=== PATIENT | male | born 1945 | race Caucasian/White ===

== ENCOUNTER 2016-08-19 18:02 | Inpatient (IN) | payer MEDICARE, MEDICAID ==
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
[2016-08-19 18:27] VITALS: BP 111/111
[2016-08-19] MEDS ORDERED: Haloperidol Lactate 5 mg/mL 1mL Vial IM STA (19:07)
[2016-08-19] MEDS ORDERED: Haloperidol Lactate 5 mg/mL 1mL Vial ONE (20:36)
[2016-08-19 21:39] LABS: URINE BILIRUBIN NEGATIVE (NEGATIVE); URINE BLOOD TRACE (NEGATIVE); URINE COLOR STRAW; URINE GLUCOSE (UA) NEGATIVE (NEGATIVE); URINE KETONE NEGATIVE (NEGATIVE); URINE PH 5.5; URINE PROTEIN 100 mg/dL (NEGATIVE); URINE UROBILINOGEN 0.2 E.U./dL (0.2 - 1.0)
--- NOTE | 2016-08-19 21:39 | Admit Criteria Form ---
Admit Criteria Forms - Admit Criteria Diagnosis: PSYCHIATRIC DISORDERS Clinical Indications for Inpatient Care (Place 'X' for any and all applicable criteria): Ongoing inpatient care may be needed for ANY ONE of the following(1)(2)(3)(4)(6) (7)(8): [ ]I. Danger to self or others not manageable at lower level of care. [ ]II. Grave disability (eg, inability to perform self care necessary at lower level of care) [X]III. Agitation or inappropriate behavior interfering with care for primary condition (eg, attempting to discontinue lines or drains prematurely, unable to cooperate with respiratory care) [ ]IV. Severe disability or disorder indicated by ALL of the following: [ ]a) Severe behavioral health disorder-related symptoms or condition indicated by ANY ONE of the following: [ ]i) Severe problem with cognition, memory, judgment, or impulse control [ ]ii) Severe clinical manifestations (eg, hallucinations, delusions, other acute psychotic symptoms, lisha, extreme agitation or anxiety) [ ]b) Patient management at lower level of care is not feasible until acute intervention or modification is initiated. Extended stay beyond goal length of stay for the primary condition may be indicated when ANY ONE of the following is present: (1)(2)(3)(4): [ ]a) Patient is a danger to self or others and not manageable at lower level of care. [ ]b) Behavior crisis management, including physical or chemical restraints, is required and is not available at a lower level of care. [ ]c) Behavioral symptoms (e.g., agitation, somnolence, inappropriate behavior) are present, and are not manageable at a lower level of care. [ ]d) Patient cannot understand follow-up treatment and crisis plan. [ ]e) Provider and supports are not sufficiently available at lower level of care. [ ]f) Patient cannot participate (e.g., verify absence of plan for harm) and is in needed of monitoring. The original [facility] [employer] content created by [facility] has been revised. The portions of the content which have been revised are identified through the use of italic text or in bold, and [facility] has neither reviewed nor approved the modified material. All other unmodified content is copyright [facility] [employer]. Please see references footnoted in the original [facility] edition 2016 Admit Criteria Met?: Yes
[2016-08-19 21:40] LABS: URINE WBC 25-50 /hpf (0-5)
[2016-08-19 21:41] LABS: URINE BACTERIA NONE SEEN /hpf (NONE SEEN); URINE EPITHELIAL CELLS NONE SEEN /lpf (FEW)
[2016-08-19 22:01] LABS: % BASOPHILS 2.8 % (0.0-2.0); % EOSINOPHILS 3.1 % (0.0-5.0); % MONOCYTES 10.1 % (2.0-10.0); HEMATOCRIT 34.4 % (39.0-49.0); HEMOGLOBIN 11.5 gm/dL (12.6-17.4); MEAN CELL VOLUME 91.3 fl (80-99); MEAN CORPUSCULAR HEMOGLOBIN 30.6 pg (27.0-31.0); MEAN CORPUSCULAR HGB CONC 33.5 pg (28.0-36.0); NEUTROPHILE ABSOLUTE 3.9 Th/cmm (1.8-8.0); PLATELET COUNT 268 Th/cmm (150-400); RED BLOOD COUNT 3.77 Mil/cmm (3.80-5.80); RED CELL DISTRIBUTION WIDTH 14.1 % (11.5-20.0); WHITE BLOOD COUNT 7.9 Th/cmm (4.8-10.8)
[2016-08-19 22:12] LABS: ANION GAP 9.3 (7.0-16.0); BUN - UREA NITROGEN 43 mg/dL (7-25); BUN/CREATININE RATIO 17.9; CALCIUM SERUM 9.4 mg/dL (8.6-10.3); CARBON DIOXIDE 18.8 mEq/L (21.0-31.0); CHLORIDE 114 mEq/L (98-107); CHOLESTEROL 163 mg/dL (<200); CREATININE - SERUM 2.4 mg/dL (0.7-1.3); GLUCOSE 78 mg/dL (70-105); POTASSIUM SERUM 5.1 mEq/L (3.5-5.1); SODIUM SERUM 137 mEq/L (136-145); TRIGLYCERIDES 100 mg/dL (<150)
[2016-08-19] MEDS ORDERED: Maalox 30 mL Cup PO PRN (23:38)
[2016-08-19] MEDS ORDERED: Magnesium Hydroxide (MOM) 30 mL UDC PO PRN (23:38)
[2016-08-20] MEDS: OLANZapine 5 mg Oral Disintegrating Tab PO SCH ×2 (08:30→16:11)
[2016-08-20] MEDS: Calcium Carb/Vit D 500 mg/200 U Tab PO SCH (08:31)
[2016-08-20] MEDS: Ferrous Sulfate 325 MG TAB PO SCH (08:31)
[2016-08-20] MEDS: Multivitamin Tab PO SCH (08:31)
--- NOTE | 2016-08-20 10:06 | General Progress Note ---
Subjective - Review of Systems Service Date: 08/20/16 Subjective: agitated Objective - Results Result Diagrams: 08/19/16 21:40 08/19/16 21:40 Recent Labs: Laboratory Last Values WBC 7.9 Th/cmm (4.8-10.8) 08/19/16 21:40 RBC 3.77 Mil/cmm (3.80-5.80) L 08/19/16 21:40 Hgb 11.5 gm/dL (12.6-17.4) L 08/19/16 21:40 Hct 34.4 % (39.0-49.0) L 08/19/16 21:40 MCV 91.3 fl (80-99) 08/19/16 21:40 MCH 30.6 pg (27.0-31.0) 08/19/16 21:40 MCHC Differential 33.5 pg (28.0-36.0) 08/19/16 21:40 RDW 14.1 % (11.5-20.0) 08/19/16 21:40 Plt Count 268 Th/cmm (150-400) 08/19/16 21:40 MPV 8.0 fl 08/19/16 21:40 Neutrophils % 49.0 % (40.0-80.0) 08/19/16 21:40 Lymphocytes % 35.0 % (20.0-50.0) 08/19/16 21:40 Monocytes % 10.1 % (2.0-10.0) H 08/19/16 21:40 Eosinophils % 3.1 % (0.0-5.0) 08/19/16 21:40 Basophils % 2.8 % (0.0-2.0) H 08/19/16 21:40 Sodium 137 mEq/L (136-145) 08/19/16 21:40 Potassium 5.1 mEq/L (3.5-5.1) 08/19/16 21:40 Chloride 114 mEq/L (98-107) H 08/19/16 21:40 Carbon Dioxide 18.8 mEq/L (21.0-31.0) L 08/19/16 21:40 Anion Gap 9.3 (7.0-16.0) 08/19/16 21:40 BUN 43 mg/dL (7-25) H 08/19/16 21:40 Creatinine 2.4 mg/dL (0.7-1.3) H 08/19/16 21:40 Est GFR ( Amer) TNP 08/19/16 21:40 Est GFR (Non-Af Amer) TNP 08/19/16 21:40 BUN/Creatinine Ratio 17.9 08/19/16 21:40 Glucose 78 mg/dL (70-105) 08/19/16 21:40 Calcium 9.4 mg/dL (8.6-10.3) 08/19/16 21:40 Triglycerides 100 mg/dL (<150) 08/19/16 21:40 Cholesterol 163 mg/dL (<200) 08/19/16 21:40 LDL Cholesterol Direct 124 mg/dL (75-193) 08/19/16 21:40 HDL Cholesterol 36 mg/dL (23-92) 08/19/16 21:40 TSH 2.31 uIU/ml (0.34-5.60) 08/19/16 21:40 Urine Source CLEAN C 08/19/16 20:57 Urine Color STRAW 08/19/16 20:57 Urine Clarity HAZY (CLEAR) 08/19/16 20:57 Urine pH 5.5 08/19/16 20:57 Ur Specific [place] 1.020 (1.005-1.030) 08/19/16 20:57 Urine Protein 100 mg/dL (NEGATIVE) H 08/19/16 20:57 Urine Glucose (UA) NEGATIVE mg/dL (NEGATIVE) 08/19/16 20:57 Urine Ketones NEGATIVE mg/dL (NEGATIVE) 08/19/16 20:57 Urine Blood TRACE (NEGATIVE) 08/19/16 20:57 Urine Nitrate NEGATIVE (NEGATIVE) 08/19/16 20:57 Urine Bilirubin NEGATIVE (NEGATIVE) 08/19/16 20:57 Urine Urobilinogen 0.2 E.U./dL (0.2 - 1.0) 08/19/16 20:57 Ur Leukocyte Esterase SMALL (NEGATIVE) H 08/19/16 20:57 Urine RBC 2-5 /hpf (0-5) H 08/19/16 20:57 Urine WBC 25-50 /hpf (0-5) H 08/19/16 20:57 Ur Epithelial Cells NONE SEEN /lpf (FEW) 08/19/16 20:57 Urine Bacteria NONE SEEN /hpf (NONE SEEN) 08/19/16 20:57 - Physical Exam Vitals and I&O: Vital Signs Temp 97 F 08/20/16 06:34 Pulse 86 08/20/16 08:31 Resp 18 08/20/16 06:34 BP 123/66 08/20/16 08:31 Pulse Ox 97 08/20/16 06:34 Intake & Output 08/19/16 08/20/16 08/20/16 18:59 06:59 18:59 Intake Total 120 Balance 120 Intake: Oral 120 Other: # Voids 3 Active Medications: Current Medications Acetaminophen (Tylenol) 650 mg PO Q4HR PRN PRN Reason: Pain Stop: 10/18/16 23:37 Al Hydrox/Mg Hydrox/Simethicone (Maalox) 30 ml PO Q4HR PRN PRN Reason: GI DISTRESS Stop: 10/18/16 23:37 Ascorbic Acid (Vitamin C) 500 mg PO DAILY [facility] Stop: 10/19/16 08:59 Last Admin: 08/20/16 08:31 Dose: 500 mg Bisacodyl (Dulcolax 10 Mg Supp) 10 mg RC Q48HR PRN PRN Reason: Constipation Stop: 10/19/16 00:21 Calcium/Vitamin D (Oscal W/Vitamin D) 1 tab PO DAILY [facility] Stop: 10/19/16 08:59 Last Admin: 08/20/16 08:31 Dose: 1 tab Docusate Sodium (Colace) 100 mg PO DAILY [facility] Stop: 10/19/16 08:59 Last Admin: 08/20/16 08:31 Dose: 100 mg Ferrous Sulfate (Iron) 325 mg PO DAILY [facility] Stop: 10/19/16 08:59 Last Admin: 08/20/16 08:31 Dose: 325 mg Gabapentin (Neurontin) 600 mg PO BID [facility] Stop: 10/19/16 08:59 Last Admin: 08/20/16 08:30 Dose: 600 mg Lorazepam (Ativan) 0.5 mg PO Q4HR PRN; Protocol PRN Reason: Anxiety Stop: 09/18/16 23:37 Losartan Potassium (Cozaar) 50 mg PO DAILY [facility] Stop: 10/19/16 08:59 Last Admin: 08/20/16 08:31 Dose: 50 mg Multivitamins/Vitamin C (Theragran) 1 tab PO DAILY [facility] Stop: 10/19/16 08:59 Last Admin: 08/20/16 08:31 Dose: 1 tab Olanzapine (Zyprexa Zydis) 5 mg PO BID [facility] PRN Reason: Protocol Stop: 10/19/16 08:59 Last Admin: 08/20/16 08:30 Dose: 5 mg Senna (Senna) 17.2 mg PO HS [facility] Stop: 10/19/16 20:59 Zolpidem Tartrate (Ambien) 5 mg PO HS PRN PRN Reason: Insomnia Stop: 10/18/16 23:37 General: Alert, No acute distress HEENT: Atraumatic Neck: Supple Cardiovascular: Regular rate, Normal S1 Lungs: Clear to auscultation Abdomen: Bowel sounds Neurological: Normal gait Psych/Mental Status: Other (agitated) Assessment/Plan - Assessment Assessment: severe agitation psychosis uti - Plan Plan: antibiotics
[2016-08-20 11:16] LABS: HEP B CORE IGM Negative (Negative); HEP C ANTIBODY >11.0 s/co ratio (0.0-0.9)
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
[2016-08-21] MEDS: Multivitamin Tab PO SCH (08:25)
[2016-08-21] MEDS: Calcium Carb/Vit D 500 mg/200 U Tab PO SCH (08:25)
[2016-08-21] MEDS: Ferrous Sulfate 325 MG TAB PO SCH (08:25)
[2016-08-21] MEDS: OLANZapine 5 mg Oral Disintegrating Tab PO SCH ×2 (08:26→16:04)
--- NOTE | 2016-08-21 09:18 | General Progress Note ---
Subjective - Review of Systems Subjective: agitated Objective - Results Result Diagrams: 08/19/16 21:40 08/19/16 21:40 Recent Labs: Laboratory Last Values WBC 7.9 Th/cmm (4.8-10.8) 08/19/16 21:40 RBC 3.77 Mil/cmm (3.80-5.80) L 08/19/16 21:40 Hgb 11.5 gm/dL (12.6-17.4) L 08/19/16 21:40 Hct 34.4 % (39.0-49.0) L 08/19/16 21:40 MCV 91.3 fl (80-99) 08/19/16 21:40 MCH 30.6 pg (27.0-31.0) 08/19/16 21:40 MCHC Differential 33.5 pg (28.0-36.0) 08/19/16 21:40 RDW 14.1 % (11.5-20.0) 08/19/16 21:40 Plt Count 268 Th/cmm (150-400) 08/19/16 21:40 MPV 8.0 fl 08/19/16 21:40 Neutrophils % 49.0 % (40.0-80.0) 08/19/16 21:40 Lymphocytes % 35.0 % (20.0-50.0) 08/19/16 21:40 Monocytes % 10.1 % (2.0-10.0) H 08/19/16 21:40 Eosinophils % 3.1 % (0.0-5.0) 08/19/16 21:40 Basophils % 2.8 % (0.0-2.0) H 08/19/16 21:40 Sodium 137 mEq/L (136-145) 08/19/16 21:40 Potassium 5.1 mEq/L (3.5-5.1) 08/19/16 21:40 Chloride 114 mEq/L (98-107) H 08/19/16 21:40 Carbon Dioxide 18.8 mEq/L (21.0-31.0) L 08/19/16 21:40 Anion Gap 9.3 (7.0-16.0) 08/19/16 21:40 BUN 43 mg/dL (7-25) H 08/19/16 21:40 Creatinine 2.4 mg/dL (0.7-1.3) H 08/19/16 21:40 Est GFR ( Amer) TNP 08/19/16 21:40 Est GFR (Non-Af Amer) TNP 08/19/16 21:40 BUN/Creatinine Ratio 17.9 08/19/16 21:40 Glucose 78 mg/dL (70-105) 08/19/16 21:40 Calcium 9.4 mg/dL (8.6-10.3) 08/19/16 21:40 Triglycerides 100 mg/dL (<150) 08/19/16 21:40 Cholesterol 163 mg/dL (<200) 08/19/16 21:40 LDL Cholesterol Direct 124 mg/dL (75-193) 08/19/16 21:40 HDL Cholesterol 36 mg/dL (23-92) 08/19/16 21:40 TSH 2.31 uIU/ml (0.34-5.60) 08/19/16 21:40 Urine Source CLEAN C 08/19/16 20:57 Urine Color STRAW 08/19/16 20:57 Urine Clarity HAZY (CLEAR) 08/19/16 20:57 Urine pH 5.5 08/19/16 20:57 Ur Specific [place] 1.020 (1.005-1.030) 08/19/16 20:57 Urine Protein 100 mg/dL (NEGATIVE) H 08/19/16 20:57 Urine Glucose (UA) NEGATIVE mg/dL (NEGATIVE) 08/19/16 20:57 Urine Ketones NEGATIVE mg/dL (NEGATIVE) 08/19/16 20:57 Urine Blood TRACE (NEGATIVE) 08/19/16 20:57 Urine Nitrate NEGATIVE (NEGATIVE) 08/19/16 20:57 Urine Bilirubin NEGATIVE (NEGATIVE) 08/19/16 20:57 Urine Urobilinogen 0.2 E.U./dL (0.2 - 1.0) 08/19/16 20:57 Ur Leukocyte Esterase SMALL (NEGATIVE) H 08/19/16 20:57 Urine RBC 2-5 /hpf (0-5) H 08/19/16 20:57 Urine WBC 25-50 /hpf (0-5) H 08/19/16 20:57 Ur Epithelial Cells NONE SEEN /lpf (FEW) 08/19/16 20:57 Urine Bacteria NONE SEEN /hpf (NONE SEEN) 08/19/16 20:57 Hepatitis A IgM Ab Negative (Negative) 08/19/16 21:40 Hep Bs Antigen Negative (Negative) 08/19/16 21:40 Hep B Core IgM Ab Negative (Negative) 08/19/16 21:40 Hepatitis C Antibody >11.0 s/co ratio (0.0-0.9) H 08/19/16 21:40 - Physical Exam Vitals and I&O: Vital Signs Temp 97.8 F 08/21/16 07:00 Pulse 78 08/21/16 08:27 Resp 19 08/21/16 07:00 BP 104/66 08/21/16 08:27 Pulse Ox 98 08/21/16 07:00 Intake & Output 08/20/16 08/21/16 08/21/16 18:59 06:59 18:59 Intake Total 700 Balance 700 Intake: Oral 700 Other: # Voids 3 # Bowel Movements 0 Active Medications: Current Medications Acetaminophen (Tylenol) 650 mg PO Q4HR PRN PRN Reason: Pain Stop: 10/18/16 23:37 Al Hydrox/Mg Hydrox/Simethicone (Maalox) 30 ml PO Q4HR PRN PRN Reason: GI DISTRESS Stop: 10/18/16 23:37 Ascorbic Acid (Vitamin C) 500 mg PO DAILY [facility] Stop: 10/19/16 08:59 Last Admin: 08/21/16 08:26 Dose: 500 mg Bisacodyl (Dulcolax 10 Mg Supp) 10 mg RC Q48HR PRN PRN Reason: Constipation Stop: 10/19/16 00:21 Calcium/Vitamin D (Oscal W/Vitamin D) 1 tab PO DAILY [facility] Stop: 10/19/16 08:59 Last Admin: 08/21/16 08:25 Dose: 1 tab Docusate Sodium (Colace) 100 mg PO DAILY [facility] Stop: 10/19/16 08:59 Last Admin: 08/21/16 08:26 Dose: 100 mg Ferrous Sulfate (Iron) 325 mg PO DAILY [facility] Stop: 10/19/16 08:59 Last Admin: 08/21/16 08:25 Dose: 325 mg Gabapentin (Neurontin) 600 mg PO BID [facility] Stop: 10/19/16 08:59 Last Admin: 08/21/16 08:25 Dose: 600 mg Lorazepam (Ativan) 0.5 mg PO Q4HR PRN; Protocol PRN Reason: Anxiety Stop: 09/18/16 23:37 Losartan Potassium (Cozaar) 50 mg PO DAILY [facility]LI Stop: 10/19/16 08:59 Last Admin: 08/21/16 08:27 Dose: Not Given Multivitamins/Vitamin C (Theragran) 1 tab PO DAILY [facility]LI Stop: 10/19/16 08:59 Last Admin: 08/21/16 08:25 Dose: 1 tab Olanzapine (Zyprexa Zydis) 5 mg PO BID [facility]LI PRN Reason: Protocol Stop: 10/19/16 08:59 Last Admin: 08/21/16 08:26 Dose: 5 mg Senna (Senna) 17.2 mg PO HS CHELI Stop: 10/19/16 20:59 Last Admin: 08/20/16 21:01 Dose: Not Given Zolpidem Tartrate (Ambien) 5 mg PO HS PRN PRN Reason: Insomnia Stop: 10/18/16 23:37 Assessment/Plan - Assessment Assessment: severe agitation psychosis uti - Plan Plan: antibiotics
--- NOTE | 2016-08-21 23:56 | Infectious Disease Prog Note ---
Infectious Disease Subjective - Review of Systems Service Date: 08/21/16 Subjective: No fever. Infectious Disease Objective - Results Result Diagrams: 08/19/16 21:40 08/19/16 21:40 Recent Labs: Laboratory Last Values WBC 7.9 Th/cmm (4.8-10.8) 08/19/16 21:40 RBC 3.77 Mil/cmm (3.80-5.80) L 08/19/16 21:40 Hgb 11.5 gm/dL (12.6-17.4) L 08/19/16 21:40 Hct 34.4 % (39.0-49.0) L 08/19/16 21:40 MCV 91.3 fl (80-99) 08/19/16 21:40 MCH 30.6 pg (27.0-31.0) 08/19/16 21:40 MCHC Differential 33.5 pg (28.0-36.0) 08/19/16 21:40 RDW 14.1 % (11.5-20.0) 08/19/16 21:40 Plt Count 268 Th/cmm (150-400) 08/19/16 21:40 MPV 8.0 fl 08/19/16 21:40 Neutrophils % 49.0 % (40.0-80.0) 08/19/16 21:40 Lymphocytes % 35.0 % (20.0-50.0) 08/19/16 21:40 Monocytes % 10.1 % (2.0-10.0) H 08/19/16 21:40 Eosinophils % 3.1 % (0.0-5.0) 08/19/16 21:40 Basophils % 2.8 % (0.0-2.0) H 08/19/16 21:40 Sodium 137 mEq/L (136-145) 08/19/16 21:40 Potassium 5.1 mEq/L (3.5-5.1) 08/19/16 21:40 Chloride 114 mEq/L (98-107) H 08/19/16 21:40 Carbon Dioxide 18.8 mEq/L (21.0-31.0) L 08/19/16 21:40 Anion Gap 9.3 (7.0-16.0) 08/19/16 21:40 BUN 43 mg/dL (7-25) H 08/19/16 21:40 Creatinine 2.4 mg/dL (0.7-1.3) H 08/19/16 21:40 Est GFR ( Amer) TNP 08/19/16 21:40 Est GFR (Non-Af Amer) TNP 08/19/16 21:40 BUN/Creatinine Ratio 17.9 08/19/16 21:40 Glucose 78 mg/dL (70-105) 08/19/16 21:40 Calcium 9.4 mg/dL (8.6-10.3) 08/19/16 21:40 Triglycerides 100 mg/dL (<150) 08/19/16 21:40 Cholesterol 163 mg/dL (<200) 08/19/16 21:40 LDL Cholesterol Direct 124 mg/dL (75-193) 08/19/16 21:40 HDL Cholesterol 36 mg/dL (23-92) 08/19/16 21:40 TSH 2.31 uIU/ml (0.34-5.60) 08/19/16 21:40 Urine Source CLEAN C 08/19/16 20:57 Urine Color STRAW 08/19/16 20:57 Urine Clarity HAZY (CLEAR) 08/19/16 20:57 Urine pH 5.5 08/19/16 20:57 Ur Specific [place] 1.020 (1.005-1.030) 08/19/16 20:57 Urine Protein 100 mg/dL (NEGATIVE) H 08/19/16 20:57 Urine Glucose (UA) NEGATIVE mg/dL (NEGATIVE) 08/19/16 20:57 Urine Ketones NEGATIVE mg/dL (NEGATIVE) 08/19/16 20:57 Urine Blood TRACE (NEGATIVE) 08/19/16 20:57 Urine Nitrate NEGATIVE (NEGATIVE) 08/19/16 20:57 Urine Bilirubin NEGATIVE (NEGATIVE) 08/19/16 20:57 Urine Urobilinogen 0.2 E.U./dL (0.2 - 1.0) 08/19/16 20:57 Ur Leukocyte Esterase SMALL (NEGATIVE) H 08/19/16 20:57 Urine RBC 2-5 /hpf (0-5) H 08/19/16 20:57 Urine WBC 25-50 /hpf (0-5) H 08/19/16 20:57 Ur Epithelial Cells NONE SEEN /lpf (FEW) 08/19/16 20:57 Urine Bacteria NONE SEEN /hpf (NONE SEEN) 08/19/16 20:57 RPR NONREACTIVE (NONREACTIVE) 08/19/16 21:40 Hepatitis A IgM Ab Negative (Negative) 08/19/16 21:40 Hep Bs Antigen Negative (Negative) 08/19/16 21:40 Hep B Core IgM Ab Negative (Negative) 08/19/16 21:40 Hepatitis C Antibody >11.0 s/co ratio (0.0-0.9) H 08/19/16 21:40 - Physical Exam Vitals and I&O: Vital Signs Temp 98.0 F 08/21/16 14:00 Pulse 91 08/21/16 14:00 Resp 20 08/21/16 14:00 BP 102/61 08/21/16 14:00 Pulse Ox 96 08/21/16 14:00 Intake & Output 08/21/16 08/21/16 08/22/16 06:59 18:59 06:59 Intake Total 960 Balance 960 Intake: Oral 960 Other: # Voids 3 # Bowel Movements 1 Active Medications: Current Medications Acetaminophen (Tylenol) 650 mg PO Q4HR PRN PRN Reason: Pain Stop: 10/18/16 23:37 Al Hydrox/Mg Hydrox/Simethicone (Maalox) 30 ml PO Q4HR PRN PRN Reason: GI DISTRESS Stop: 10/18/16 23:37 Ascorbic Acid (Vitamin C) 500 mg PO DAILY [facility] Stop: 10/19/16 08:59 Last Admin: 08/21/16 08:26 Dose: 500 mg Bisacodyl (Dulcolax 10 Mg Supp) 10 mg RC Q48HR PRN PRN Reason: Constipation Stop: 10/19/16 00:21 Calcium/Vitamin D (Oscal W/Vitamin D) 1 tab PO DAILY [facility] Stop: 10/19/16 08:59 Last Admin: 08/21/16 08:25 Dose: 1 tab Docusate Sodium (Colace) 100 mg PO DAILY [facility] Stop: 10/19/16 08:59 Last Admin: 08/21/16 08:26 Dose: 100 mg Ferrous Sulfate (Iron) 325 mg PO DAILY [facility] Stop: 10/19/16 08:59 Last Admin: 08/21/16 08:25 Dose: 325 mg Gabapentin (Neurontin) 600 mg PO BID [facility] Stop: 10/19/16 08:59 Last Admin: 08/21/16 16:04 Dose: 600 mg Lorazepam (Ativan) 0.5 mg PO Q4HR PRN; Protocol PRN Reason: Anxiety Stop: 09/18/16 23:37 Losartan Potassium (Cozaar) 50 mg PO DAILY [facility] Stop: 10/19/16 08:59 Last Admin: 08/21/16 08:27 Dose: Not Given Multivitamins/Vitamin C (Theragran) 1 tab PO DAILY [facility] Stop: 10/19/16 08:59 Last Admin: 08/21/16 08:25 Dose: 1 tab Olanzapine (Zyprexa Zydis) 5 mg PO BID [facility] PRN Reason: Protocol Stop: 10/19/16 08:59 Last Admin: 08/21/16 16:04 Dose: 5 mg Senna (Senna) 17.2 mg PO HS [facility] Stop: 10/19/16 20:59 Last Admin: 08/21/16 20:47 Dose: 17.2 mg Zolpidem Tartrate (Ambien) 5 mg PO HS PRN PRN Reason: Insomnia Stop: 10/18/16 23:37 General: no acute distress HEENT: atraumatic, normocephalic, PERRLA, EOMI Neck: supple Cardiovascular: S1S2, regular Lungs: clear to auscultation bilaterally, clear to percussion Abdomen: soft, no tender, no distended Extremities: no cyanosis, no clubbing, no edema Neurological: awake, alert, oriented Skin: intact Infectious Disease Assmt/Plan - Assessment Assessment: 1. UTI. 2. CKD3 3. COPD 4. HTN. 5. Schizophrenia. - Plan Plan: Jailer
--- NOTE | 2016-08-22 05:27 | Progress Notes ---
SUBJECTIVE: Chart reviewed and the patient interviewed. Also discussed the patient's condition with the staff and reviewed record and labs. The patient remains extremely agitated and angry and in irritable mood. The patient also is still isolating himself and his interaction with others is minimum. The patient also is still having severe mood swings and he is still uncooperative with the staff and a have short answers to questions with anger and irritability. The patient also seems to be suspicious and paranoid. Otherwise, the patient started to take Zyprexa was no side effect. ASSESSMENT: The patient is still agitated and can be dangerous to others. TREATMENT PLAN: We will continue monitoring his behavior and his condition closely. Also, continue adjusting psychotropic medications and monitoring dose of Zyprexa. Also, continue to work on his poor impulse control. Also discussed with [facility] [employer] supply issue and it seems that [facility] will not take the patient back. JOB# [id number]
[2016-08-22] MEDS: Calcium Carb/Vit D 500 mg/200 U Tab PO SCH (08:10)
[2016-08-22] MEDS: Ferrous Sulfate 325 MG TAB PO SCH (08:10)
[2016-08-22] MEDS: Multivitamin Tab PO SCH (08:10)
[2016-08-22] MEDS: OLANZapine 5 mg Oral Disintegrating Tab PO SCH ×2 (09:32→20:46)
--- NOTE | 2016-08-22 09:50 | General Progress Note ---
Subjective - Review of Systems Subjective: agitated Objective - Results Result Diagrams: 08/19/16 21:40 08/19/16 21:40 Recent Labs: Laboratory Last Values WBC 7.9 Th/cmm (4.8-10.8) 08/19/16 21:40 RBC 3.77 Mil/cmm (3.80-5.80) L 08/19/16 21:40 Hgb 11.5 gm/dL (12.6-17.4) L 08/19/16 21:40 Hct 34.4 % (39.0-49.0) L 08/19/16 21:40 MCV 91.3 fl (80-99) 08/19/16 21:40 MCH 30.6 pg (27.0-31.0) 08/19/16 21:40 MCHC Differential 33.5 pg (28.0-36.0) 08/19/16 21:40 RDW 14.1 % (11.5-20.0) 08/19/16 21:40 Plt Count 268 Th/cmm (150-400) 08/19/16 21:40 MPV 8.0 fl 08/19/16 21:40 Neutrophils % 49.0 % (40.0-80.0) 08/19/16 21:40 Lymphocytes % 35.0 % (20.0-50.0) 08/19/16 21:40 Monocytes % 10.1 % (2.0-10.0) H 08/19/16 21:40 Eosinophils % 3.1 % (0.0-5.0) 08/19/16 21:40 Basophils % 2.8 % (0.0-2.0) H 08/19/16 21:40 Sodium 137 mEq/L (136-145) 08/19/16 21:40 Potassium 5.1 mEq/L (3.5-5.1) 08/19/16 21:40 Chloride 114 mEq/L (98-107) H 08/19/16 21:40 Carbon Dioxide 18.8 mEq/L (21.0-31.0) L 08/19/16 21:40 Anion Gap 9.3 (7.0-16.0) 08/19/16 21:40 BUN 43 mg/dL (7-25) H 08/19/16 21:40 Creatinine 2.4 mg/dL (0.7-1.3) H 08/19/16 21:40 Est GFR ( Amer) TNP 08/19/16 21:40 Est GFR (Non-Af Amer) TNP 08/19/16 21:40 BUN/Creatinine Ratio 17.9 08/19/16 21:40 Glucose 78 mg/dL (70-105) 08/19/16 21:40 Calcium 9.4 mg/dL (8.6-10.3) 08/19/16 21:40 Triglycerides 100 mg/dL (<150) 08/19/16 21:40 Cholesterol 163 mg/dL (<200) 08/19/16 21:40 LDL Cholesterol Direct 124 mg/dL (75-193) 08/19/16 21:40 HDL Cholesterol 36 mg/dL (23-92) 08/19/16 21:40 TSH 2.31 uIU/ml (0.34-5.60) 08/19/16 21:40 Urine Source CLEAN C 08/19/16 20:57 Urine Color STRAW 08/19/16 20:57 Urine Clarity HAZY (CLEAR) 08/19/16 20:57 Urine pH 5.5 08/19/16 20:57 Ur Specific [place] 1.020 (1.005-1.030) 08/19/16 20:57 Urine Protein 100 mg/dL (NEGATIVE) H 08/19/16 20:57 Urine Glucose (UA) NEGATIVE mg/dL (NEGATIVE) 08/19/16 20:57 Urine Ketones NEGATIVE mg/dL (NEGATIVE) 08/19/16 20:57 Urine Blood TRACE (NEGATIVE) 08/19/16 20:57 Urine Nitrate NEGATIVE (NEGATIVE) 08/19/16 20:57 Urine Bilirubin NEGATIVE (NEGATIVE) 08/19/16 20:57 Urine Urobilinogen 0.2 E.U./dL (0.2 - 1.0) 08/19/16 20:57 Ur Leukocyte Esterase SMALL (NEGATIVE) H 08/19/16 20:57 Urine RBC 2-5 /hpf (0-5) H 08/19/16 20:57 Urine WBC 25-50 /hpf (0-5) H 08/19/16 20:57 Ur Epithelial Cells NONE SEEN /lpf (FEW) 08/19/16 20:57 Urine Bacteria NONE SEEN /hpf (NONE SEEN) 08/19/16 20:57 RPR NONREACTIVE (NONREACTIVE) 08/19/16 21:40 Hepatitis A IgM Ab Negative (Negative) 08/19/16 21:40 Hep Bs Antigen Negative (Negative) 08/19/16 21:40 Hep B Core IgM Ab Negative (Negative) 08/19/16 21:40 Hepatitis C Antibody >11.0 s/co ratio (0.0-0.9) H 08/19/16 21:40 - Physical Exam Vitals and I&O: Vital Signs Temp 98.0 F 08/21/16 14:00 Pulse 91 08/21/16 14:00 Resp 20 08/21/16 14:00 BP 102/61 08/21/16 14:00 Pulse Ox 96 08/21/16 14:00 Intake & Output 08/21/16 08/22/16 08/22/16 18:59 06:59 18:59 Intake Total 960 Balance 960 Intake: Oral 960 Other: # Voids 3 2 # Bowel Movements 1 Active Medications: Current Medications Acetaminophen (Tylenol) 650 mg PO Q4HR PRN PRN Reason: Pain Stop: 10/18/16 23:37 Al Hydrox/Mg Hydrox/Simethicone (Maalox) 30 ml PO Q4HR PRN PRN Reason: GI DISTRESS Stop: 10/18/16 23:37 Ascorbic Acid (Vitamin C) 500 mg PO DAILY [facility] Stop: 10/19/16 08:59 Last Admin: 08/22/16 08:09 Dose: 500 mg Bisacodyl (Dulcolax 10 Mg Supp) 10 mg RC Q48HR PRN PRN Reason: Constipation Stop: 10/19/16 00:21 Calcium/Vitamin D (Oscal W/Vitamin D) 1 tab PO DAILY [facility] Stop: 10/19/16 08:59 Last Admin: 08/22/16 08:10 Dose: 1 tab Ciprofloxacin (Cipro) 250 mg PO BID [facility] Stop: 10/21/16 08:59 Last Admin: 08/22/16 08:10 Dose: 250 mg Docusate Sodium (Colace) 100 mg PO DAILY [facility] Stop: 10/19/16 08:59 Last Admin: 08/22/16 08:10 Dose: 100 mg Ferrous Sulfate (Iron) 325 mg PO DAILY [facility] Stop: 10/19/16 08:59 Last Admin: 08/22/16 08:10 Dose: 325 mg Gabapentin (Neurontin) 600 mg PO BID [facility] Stop: 10/19/16 08:59 Last Admin: 08/22/16 08:10 Dose: 600 mg Lorazepam (Ativan) 0.5 mg PO Q4HR PRN; Protocol PRN Reason: Anxiety Stop: 09/18/16 23:37 Losartan Potassium (Cozaar) 50 mg PO DAILY [facility] Stop: 10/19/16 08:59 Last Admin: 08/22/16 08:12 Dose: Not Given Multivitamins/Vitamin C (Theragran) 1 tab PO DAILY [facility] Stop: 10/19/16 08:59 Last Admin: 08/22/16 08:10 Dose: 1 tab Olanzapine (Zyprexa Zydis) 5 mg PO DAILY [facility] PRN Reason: Protocol Stop: 10/21/16 08:59 Last Admin: 08/22/16 09:32 Dose: 5 mg Olanzapine (Zyprexa Zydis) 7.5 mg PO HS [facility] PRN Reason: Protocol Stop: 10/21/16 20:59 Senna (Senna) 17.2 mg PO HS [facility] Stop: 10/19/16 20:59 Last Admin: 08/21/16 20:47 Dose: 17.2 mg Zolpidem Tartrate (Ambien) 5 mg PO HS PRN PRN Reason: Insomnia Stop: 10/18/16 23:37 Assessment/Plan - Assessment Assessment: severe agitation psychosis uti - Plan Plan: antibiotics
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
[2016-08-23] MEDS: Calcium Carb/Vit D 500 mg/200 U Tab PO SCH (08:41)
[2016-08-23] MEDS: Multivitamin Tab PO SCH (08:44)
[2016-08-23] MEDS: OLANZapine 5 mg Oral Disintegrating Tab PO SCH ×2 (08:44→20:40)
[2016-08-23] MEDS: Ferrous Sulfate 325 MG TAB PO SCH (08:45)
--- NOTE | 2016-08-23 11:17 | General Progress Note ---
Subjective - Review of Systems Subjective: agitated Objective - Results Result Diagrams: 08/19/16 21:40 08/19/16 21:40 Recent Labs: Laboratory Last Values WBC 7.9 Th/cmm (4.8-10.8) 08/19/16 21:40 RBC 3.77 Mil/cmm (3.80-5.80) L 08/19/16 21:40 Hgb 11.5 gm/dL (12.6-17.4) L 08/19/16 21:40 Hct 34.4 % (39.0-49.0) L 08/19/16 21:40 MCV 91.3 fl (80-99) 08/19/16 21:40 MCH 30.6 pg (27.0-31.0) 08/19/16 21:40 MCHC Differential 33.5 pg (28.0-36.0) 08/19/16 21:40 RDW 14.1 % (11.5-20.0) 08/19/16 21:40 Plt Count 268 Th/cmm (150-400) 08/19/16 21:40 MPV 8.0 fl 08/19/16 21:40 Neutrophils % 49.0 % (40.0-80.0) 08/19/16 21:40 Lymphocytes % 35.0 % (20.0-50.0) 08/19/16 21:40 Monocytes % 10.1 % (2.0-10.0) H 08/19/16 21:40 Eosinophils % 3.1 % (0.0-5.0) 08/19/16 21:40 Basophils % 2.8 % (0.0-2.0) H 08/19/16 21:40 Sodium 137 mEq/L (136-145) 08/19/16 21:40 Potassium 5.1 mEq/L (3.5-5.1) 08/19/16 21:40 Chloride 114 mEq/L (98-107) H 08/19/16 21:40 Carbon Dioxide 18.8 mEq/L (21.0-31.0) L 08/19/16 21:40 Anion Gap 9.3 (7.0-16.0) 08/19/16 21:40 BUN 43 mg/dL (7-25) H 08/19/16 21:40 Creatinine 2.4 mg/dL (0.7-1.3) H 08/19/16 21:40 Est GFR ( Amer) TNP 08/19/16 21:40 Est GFR (Non-Af Amer) TNP 08/19/16 21:40 BUN/Creatinine Ratio 17.9 08/19/16 21:40 Glucose 78 mg/dL (70-105) 08/19/16 21:40 Calcium 9.4 mg/dL (8.6-10.3) 08/19/16 21:40 Triglycerides 100 mg/dL (<150) 08/19/16 21:40 Cholesterol 163 mg/dL (<200) 08/19/16 21:40 LDL Cholesterol Direct 124 mg/dL (75-193) 08/19/16 21:40 HDL Cholesterol 36 mg/dL (23-92) 08/19/16 21:40 TSH 2.31 uIU/ml (0.34-5.60) 08/19/16 21:40 Urine Source CLEAN C 08/19/16 20:57 Urine Color STRAW 08/19/16 20:57 Urine Clarity HAZY (CLEAR) 08/19/16 20:57 Urine pH 5.5 08/19/16 20:57 Ur Specific [place] 1.020 (1.005-1.030) 08/19/16 20:57 Urine Protein 100 mg/dL (NEGATIVE) H 08/19/16 20:57 Urine Glucose (UA) NEGATIVE mg/dL (NEGATIVE) 08/19/16 20:57 Urine Ketones NEGATIVE mg/dL (NEGATIVE) 08/19/16 20:57 Urine Blood TRACE (NEGATIVE) 08/19/16 20:57 Urine Nitrate NEGATIVE (NEGATIVE) 08/19/16 20:57 Urine Bilirubin NEGATIVE (NEGATIVE) 08/19/16 20:57 Urine Urobilinogen 0.2 E.U./dL (0.2 - 1.0) 08/19/16 20:57 Ur Leukocyte Esterase SMALL (NEGATIVE) H 08/19/16 20:57 Urine RBC 2-5 /hpf (0-5) H 08/19/16 20:57 Urine WBC 25-50 /hpf (0-5) H 08/19/16 20:57 Ur Epithelial Cells NONE SEEN /lpf (FEW) 08/19/16 20:57 Urine Bacteria NONE SEEN /hpf (NONE SEEN) 08/19/16 20:57 RPR NONREACTIVE (NONREACTIVE) 08/19/16 21:40 Hepatitis A IgM Ab Negative (Negative) 08/19/16 21:40 Hep Bs Antigen Negative (Negative) 08/19/16 21:40 Hep B Core IgM Ab Negative (Negative) 08/19/16 21:40 Hepatitis C Antibody >11.0 s/co ratio (0.0-0.9) H 08/19/16 21:40 - Physical Exam Vitals and I&O: Vital Signs Temp 98.2 F 08/22/16 19:46 Pulse 72 08/23/16 08:45 Resp 19 08/22/16 19:46 BP 110/67 08/23/16 08:45 Pulse Ox 97 08/22/16 19:46 Intake & Output 08/22/16 08/23/16 08/23/16 18:59 06:59 18:59 Intake Total 1000 240 Balance 1000 240 Intake: Oral 1000 240 Other: # Voids 4 1 2 # Bowel Movements 1 Active Medications: Current Medications Acetaminophen (Tylenol) 650 mg PO Q4HR PRN PRN Reason: Pain Stop: 10/18/16 23:37 Al Hydrox/Mg Hydrox/Simethicone (Maalox) 30 ml PO Q4HR PRN PRN Reason: GI DISTRESS Stop: 10/18/16 23:37 Ascorbic Acid (Vitamin C) 500 mg PO DAILY [facility] Stop: 10/19/16 08:59 Last Admin: 08/23/16 08:43 Dose: 500 mg Bisacodyl (Dulcolax 10 Mg Supp) 10 mg RC Q48HR PRN PRN Reason: Constipation Stop: 10/19/16 00:21 Calcium/Vitamin D (Oscal W/Vitamin D) 1 tab PO DAILY [facility] Stop: 10/19/16 08:59 Last Admin: 08/23/16 08:41 Dose: 1 tab Ciprofloxacin (Cipro) 250 mg PO BID [facility] Stop: 10/21/16 08:59 Last Admin: 08/23/16 08:44 Dose: 250 mg Docusate Sodium (Colace) 100 mg PO DAILY [facility] Stop: 10/19/16 08:59 Last Admin: 08/23/16 08:43 Dose: 100 mg Ferrous Sulfate (Iron) 325 mg PO DAILY [facility] Stop: 10/19/16 08:59 Last Admin: 08/23/16 08:45 Dose: 325 mg Gabapentin (Neurontin) 600 mg PO BID [facility] Stop: 10/19/16 08:59 Last Admin: 08/23/16 08:41 Dose: 600 mg Lorazepam (Ativan) 0.5 mg PO Q4HR PRN; Protocol PRN Reason: Anxiety Stop: 09/18/16 23:37 Losartan Potassium (Cozaar) 50 mg PO DAILY [facility] Stop: 10/19/16 08:59 Last Admin: 08/23/16 08:45 Dose: 50 mg Multivitamins/Vitamin C (Theragran) 1 tab PO DAILY [facility] Stop: 10/19/16 08:59 Last Admin: 08/23/16 08:44 Dose: 1 tab Olanzapine (Zyprexa Zydis) 5 mg PO DAILY [facility] PRN Reason: Protocol Stop: 10/21/16 08:59 Last Admin: 08/23/16 08:44 Dose: 5 mg Olanzapine (Zyprexa Zydis) 7.5 mg PO HS [facility] PRN Reason: Protocol Stop: 10/21/16 20:59 Last Admin: 08/22/16 20:46 Dose: 7.5 mg Senna (Senna) 17.2 mg PO HS [facility] Stop: 10/19/16 20:59 Last Admin: 08/22/16 20:46 Dose: 17.2 mg Zolpidem Tartrate (Ambien) 5 mg PO HS PRN PRN Reason: Insomnia Stop: 10/18/16 23:37 Assessment/Plan - Assessment Assessment: severe agitation psychosis uti - Plan Plan: antibiotics
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
[2016-08-24] MEDS: OLANZapine 5 mg Oral Disintegrating Tab PO SCH ×2 (08:24→20:44)
[2016-08-24] MEDS: Multivitamin Tab PO SCH (08:25)
[2016-08-24] MEDS: Ferrous Sulfate 325 MG TAB PO SCH (08:27)
[2016-08-24] MEDS: Calcium Carb/Vit D 500 mg/200 U Tab PO SCH (08:27)
--- NOTE | 2016-08-24 08:52 | General Progress Note ---
Subjective - Review of Systems Subjective: agitated Objective - Results Result Diagrams: 08/19/16 21:40 08/19/16 21:40 Recent Labs: Laboratory Last Values WBC 7.9 Th/cmm (4.8-10.8) 08/19/16 21:40 RBC 3.77 Mil/cmm (3.80-5.80) L 08/19/16 21:40 Hgb 11.5 gm/dL (12.6-17.4) L 08/19/16 21:40 Hct 34.4 % (39.0-49.0) L 08/19/16 21:40 MCV 91.3 fl (80-99) 08/19/16 21:40 MCH 30.6 pg (27.0-31.0) 08/19/16 21:40 MCHC Differential 33.5 pg (28.0-36.0) 08/19/16 21:40 RDW 14.1 % (11.5-20.0) 08/19/16 21:40 Plt Count 268 Th/cmm (150-400) 08/19/16 21:40 MPV 8.0 fl 08/19/16 21:40 Neutrophils % 49.0 % (40.0-80.0) 08/19/16 21:40 Lymphocytes % 35.0 % (20.0-50.0) 08/19/16 21:40 Monocytes % 10.1 % (2.0-10.0) H 08/19/16 21:40 Eosinophils % 3.1 % (0.0-5.0) 08/19/16 21:40 Basophils % 2.8 % (0.0-2.0) H 08/19/16 21:40 Sodium 137 mEq/L (136-145) 08/19/16 21:40 Potassium 5.1 mEq/L (3.5-5.1) 08/19/16 21:40 Chloride 114 mEq/L (98-107) H 08/19/16 21:40 Carbon Dioxide 18.8 mEq/L (21.0-31.0) L 08/19/16 21:40 Anion Gap 9.3 (7.0-16.0) 08/19/16 21:40 BUN 43 mg/dL (7-25) H 08/19/16 21:40 Creatinine 2.4 mg/dL (0.7-1.3) H 08/19/16 21:40 Est GFR ( Amer) TNP 08/19/16 21:40 Est GFR (Non-Af Amer) TNP 08/19/16 21:40 BUN/Creatinine Ratio 17.9 08/19/16 21:40 Glucose 78 mg/dL (70-105) 08/19/16 21:40 Calcium 9.4 mg/dL (8.6-10.3) 08/19/16 21:40 Triglycerides 100 mg/dL (<150) 08/19/16 21:40 Cholesterol 163 mg/dL (<200) 08/19/16 21:40 LDL Cholesterol Direct 124 mg/dL (75-193) 08/19/16 21:40 HDL Cholesterol 36 mg/dL (23-92) 08/19/16 21:40 TSH 2.31 uIU/ml (0.34-5.60) 08/19/16 21:40 Urine Source CLEAN C 08/19/16 20:57 Urine Color STRAW 08/19/16 20:57 Urine Clarity HAZY (CLEAR) 08/19/16 20:57 Urine pH 5.5 08/19/16 20:57 Ur Specific [place] 1.020 (1.005-1.030) 08/19/16 20:57 Urine Protein 100 mg/dL (NEGATIVE) H 08/19/16 20:57 Urine Glucose (UA) NEGATIVE mg/dL (NEGATIVE) 08/19/16 20:57 Urine Ketones NEGATIVE mg/dL (NEGATIVE) 08/19/16 20:57 Urine Blood TRACE (NEGATIVE) 08/19/16 20:57 Urine Nitrate NEGATIVE (NEGATIVE) 08/19/16 20:57 Urine Bilirubin NEGATIVE (NEGATIVE) 08/19/16 20:57 Urine Urobilinogen 0.2 E.U./dL (0.2 - 1.0) 08/19/16 20:57 Ur Leukocyte Esterase SMALL (NEGATIVE) H 08/19/16 20:57 Urine RBC 2-5 /hpf (0-5) H 08/19/16 20:57 Urine WBC 25-50 /hpf (0-5) H 08/19/16 20:57 Ur Epithelial Cells NONE SEEN /lpf (FEW) 08/19/16 20:57 Urine Bacteria NONE SEEN /hpf (NONE SEEN) 08/19/16 20:57 RPR NONREACTIVE (NONREACTIVE) 08/19/16 21:40 Hepatitis A IgM Ab Negative (Negative) 08/19/16 21:40 Hep Bs Antigen Negative (Negative) 08/19/16 21:40 Hep B Core IgM Ab Negative (Negative) 08/19/16 21:40 Hepatitis C Antibody >11.0 s/co ratio (0.0-0.9) H 08/19/16 21:40 - Physical Exam Vitals and I&O: Vital Signs Temp 98 F 08/23/16 21:52 Pulse 60 08/23/16 21:52 Resp 21 08/23/16 21:52 BP 113/62 08/23/16 21:52 Pulse Ox 99 08/23/16 21:52 Intake & Output 08/23/16 08/24/16 08/24/16 18:59 06:59 18:59 Intake Total 800 120 Balance 800 120 Intake: Oral 800 120 Other: # Voids 3 3 # Bowel Movements 1 Active Medications: Current Medications Acetaminophen (Tylenol) 650 mg PO Q4HR PRN PRN Reason: Pain Stop: 10/18/16 23:37 Al Hydrox/Mg Hydrox/Simethicone (Maalox) 30 ml PO Q4HR PRN PRN Reason: GI DISTRESS Stop: 10/18/16 23:37 Ascorbic Acid (Vitamin C) 500 mg PO DAILY [facility] Stop: 10/19/16 08:59 Last Admin: 08/24/16 08:26 Dose: 500 mg Bisacodyl (Dulcolax 10 Mg Supp) 10 mg RC Q48HR PRN PRN Reason: Constipation Stop: 10/19/16 00:21 Calcium/Vitamin D (Oscal W/Vitamin D) 1 tab PO DAILY [facility] Stop: 10/19/16 08:59 Last Admin: 08/24/16 08:27 Dose: 1 tab Ciprofloxacin (Cipro) 250 mg PO BID [facility] Stop: 10/21/16 08:59 Last Admin: 08/24/16 08:26 Dose: 250 mg Docusate Sodium (Colace) 100 mg PO DAILY [facility] Stop: 10/19/16 08:59 Last Admin: 08/24/16 08:26 Dose: 100 mg Ferrous Sulfate (Iron) 325 mg PO DAILY [facility] Stop: 10/19/16 08:59 Last Admin: 02/12/17 08:27 Dose: 325 mg Gabapentin (Neurontin) 600 mg PO BID [facility] Stop: 10/19/16 08:59 Last Admin: 08/24/16 08:24 Dose: 600 mg Lorazepam (Ativan) 0.5 mg PO Q4HR PRN; Protocol PRN Reason: Anxiety Stop: 09/18/16 23:37 Losartan Potassium (Cozaar) 50 mg PO DAILY [facility] Stop: 10/19/16 08:59 Last Admin: 08/23/16 08:45 Dose: 50 mg Multivitamins/Vitamin C (Theragran) 1 tab PO DAILY [facility] Stop: 10/19/16 08:59 Last Admin: 08/24/16 08:25 Dose: 1 tab Olanzapine (Zyprexa Zydis) 5 mg PO DAILY [facility] PRN Reason: Protocol Stop: 10/21/16 08:59 Last Admin: 08/24/16 08:24 Dose: 5 mg Olanzapine (Zyprexa Zydis) 7.5 mg PO HS [facility] PRN Reason: Protocol Stop: 10/21/16 20:59 Last Admin: 08/23/16 20:40 Dose: 7.5 mg Senna (Senna) 17.2 mg PO HS [facility] Stop: 10/19/16 20:59 Last Admin: 08/23/16 20:39 Dose: 17.2 mg Zolpidem Tartrate (Ambien) 5 mg PO HS PRN PRN Reason: Insomnia Stop: 10/18/16 23:37 Assessment/Plan - Assessment Assessment: severe agitation psychosis uti - Plan Plan: antibiotics
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
--- NOTE | 2016-08-25 09:21 | General Progress Note ---
Subjective - Review of Systems Subjective: agitated Objective - Results Result Diagrams: 08/19/16 21:40 08/19/16 21:40 Recent Labs: Laboratory Last Values WBC 7.9 Th/cmm (4.8-10.8) 08/19/16 21:40 RBC 3.77 Mil/cmm (3.80-5.80) L 08/19/16 21:40 Hgb 11.5 gm/dL (12.6-17.4) L 08/19/16 21:40 Hct 34.4 % (39.0-49.0) L 08/19/16 21:40 MCV 91.3 fl (80-99) 08/19/16 21:40 MCH 30.6 pg (27.0-31.0) 08/19/16 21:40 MCHC Differential 33.5 pg (28.0-36.0) 08/19/16 21:40 RDW 14.1 % (11.5-20.0) 08/19/16 21:40 Plt Count 268 Th/cmm (150-400) 08/19/16 21:40 MPV 8.0 fl 08/19/16 21:40 Neutrophils % 49.0 % (40.0-80.0) 08/19/16 21:40 Lymphocytes % 35.0 % (20.0-50.0) 08/19/16 21:40 Monocytes % 10.1 % (2.0-10.0) H 08/19/16 21:40 Eosinophils % 3.1 % (0.0-5.0) 08/19/16 21:40 Basophils % 2.8 % (0.0-2.0) H 08/19/16 21:40 Sodium 137 mEq/L (136-145) 08/19/16 21:40 Potassium 5.1 mEq/L (3.5-5.1) 08/19/16 21:40 Chloride 114 mEq/L (98-107) H 08/19/16 21:40 Carbon Dioxide 18.8 mEq/L (21.0-31.0) L 08/19/16 21:40 Anion Gap 9.3 (7.0-16.0) 08/19/16 21:40 BUN 43 mg/dL (7-25) H 08/19/16 21:40 Creatinine 2.4 mg/dL (0.7-1.3) H 08/19/16 21:40 Est GFR ( Amer) TNP 08/19/16 21:40 Est GFR (Non-Af Amer) TNP 08/19/16 21:40 BUN/Creatinine Ratio 17.9 08/19/16 21:40 Glucose 78 mg/dL (70-105) 08/19/16 21:40 Calcium 9.4 mg/dL (8.6-10.3) 08/19/16 21:40 Triglycerides 100 mg/dL (<150) 08/19/16 21:40 Cholesterol 163 mg/dL (<200) 08/19/16 21:40 LDL Cholesterol Direct 124 mg/dL (75-193) 08/19/16 21:40 HDL Cholesterol 36 mg/dL (23-92) 08/19/16 21:40 TSH 2.31 uIU/ml (0.34-5.60) 08/19/16 21:40 Urine Source CLEAN C 08/19/16 20:57 Urine Color STRAW 08/19/16 20:57 Urine Clarity HAZY (CLEAR) 08/19/16 20:57 Urine pH 5.5 08/19/16 20:57 Ur Specific [place] 1.020 (1.005-1.030) 08/19/16 20:57 Urine Protein 100 mg/dL (NEGATIVE) H 08/19/16 20:57 Urine Glucose (UA) NEGATIVE mg/dL (NEGATIVE) 08/19/16 20:57 Urine Ketones NEGATIVE mg/dL (NEGATIVE) 08/19/16 20:57 Urine Blood TRACE (NEGATIVE) 08/19/16 20:57 Urine Nitrate NEGATIVE (NEGATIVE) 08/19/16 20:57 Urine Bilirubin NEGATIVE (NEGATIVE) 08/19/16 20:57 Urine Urobilinogen 0.2 E.U./dL (0.2 - 1.0) 08/19/16 20:57 Ur Leukocyte Esterase SMALL (NEGATIVE) H 08/19/16 20:57 Urine RBC 2-5 /hpf (0-5) H 08/19/16 20:57 Urine WBC 25-50 /hpf (0-5) H 08/19/16 20:57 Ur Epithelial Cells NONE SEEN /lpf (FEW) 08/19/16 20:57 Urine Bacteria NONE SEEN /hpf (NONE SEEN) 08/19/16 20:57 RPR NONREACTIVE (NONREACTIVE) 08/19/16 21:40 Hepatitis A IgM Ab Negative (Negative) 08/19/16 21:40 Hep Bs Antigen Negative (Negative) 08/19/16 21:40 Hep B Core IgM Ab Negative (Negative) 08/19/16 21:40 Hepatitis C Antibody >11.0 s/co ratio (0.0-0.9) H 08/19/16 21:40 - Physical Exam Vitals and I&O: Vital Signs Temp 97.8 F 08/24/16 21:14 Pulse 76 08/24/16 21:14 Resp 19 08/24/16 21:14 BP 132/75 08/24/16 21:14 Pulse Ox 98 08/24/16 21:14 Intake & Output 08/24/16 08/25/16 08/25/16 18:59 06:59 18:59 Intake Total 900 Balance 900 Intake: Oral 900 Other: # Voids 4 # Bowel Movements 1 Active Medications: Current Medications Acetaminophen (Tylenol) 650 mg PO Q4HR PRN PRN Reason: Pain Stop: 10/18/16 23:37 Al Hydrox/Mg Hydrox/Simethicone (Maalox) 30 ml PO Q4HR PRN PRN Reason: GI DISTRESS Stop: 10/18/16 23:37 Ascorbic Acid (Vitamin C) 500 mg PO DAILY CHELI Stop: 10/19/16 08:59 Last Admin: 08/24/16 08:26 Dose: 500 mg Bisacodyl (Dulcolax 10 Mg Supp) 10 mg RC Q48HR PRN PRN Reason: Constipation Stop: 10/19/16 00:21 Calcium/Vitamin D (Oscal W/Vitamin D) 1 tab PO DAILY CHELI Stop: 10/19/16 08:59 Last Admin: 08/24/16 08:27 Dose: 1 tab Ciprofloxacin (Cipro) 250 mg PO BID CHELI Stop: 10/21/16 08:59 Last Admin: 08/24/16 16:36 Dose: 250 mg Docusate Sodium (Colace) 100 mg PO DAILY CHELI Stop: 10/19/16 08:59 Last Admin: 08/24/16 08:26 Dose: 100 mg Ferrous Sulfate (Iron) 325 mg PO DAILY CHELI Stop: 10/19/16 08:59 Last Admin: 08/24/16 08:27 Dose: 325 mg Gabapentin (Neurontin) 600 mg PO BID CHLEI Stop: 10/19/16 08:59 Last Admin: 08/24/16 16:36 Dose: 600 mg Lorazepam (Ativan) 0.5 mg PO Q4HR PRN; Protocol PRN Reason: Anxiety Stop: 09/18/16 23:37 Losartan Potassium (Cozaar) 50 mg PO DAILY CHELI Stop: 10/19/16 08:59 Last Admin: 08/24/16 16:26 Dose: Not Given Multivitamins/Vitamin C (Theragran) 1 tab PO DAILY CHELI Stop: 10/19/16 08:59 Last Admin: 08/24/16 08:25 Dose: 1 tab Olanzapine (Zyprexa Zydis) 5 mg PO DAILY CHELI PRN Reason: Protocol Stop: 10/21/16 08:59 Last Admin: 08/24/16 08:24 Dose: 5 mg Olanzapine (Zyprexa Zydis) 7.5 mg PO HS CHELI PRN Reason: Protocol Stop: 10/21/16 20:59 Last Admin: 08/24/16 20:44 Dose: 7.5 mg Senna (Senna) 17.2 mg PO HS CHELI Stop: 10/19/16 20:59 Last Admin: 08/24/16 20:44 Dose: 17.2 mg Zolpidem Tartrate (Ambien) 5 mg PO HS PRN PRN Reason: Insomnia Stop: 10/18/16 23:37 Assessment/Plan - Assessment Assessment: severe agitation psychosis uti - Plan Plan: antibiotics
[2016-08-25] MEDS: Calcium Carb/Vit D 500 mg/200 U Tab PO SCH (10:11)
[2016-08-25] MEDS: Multivitamin Tab PO SCH (10:11)
[2016-08-25] MEDS: Ferrous Sulfate 325 MG TAB PO SCH (10:11)
[2016-08-25] MEDS: OLANZapine 5 mg Oral Disintegrating Tab PO SCH ×2 (10:12→21:20)
--- NOTE | 2016-08-26 00:56 | Progress Notes ---
SUBJECTIVE: The patient was seen having breakfast in the dining area. The patient still continues to isolate himself with episodes of being restless, agitated and poor impulse control. OBJECTIVE: HEENT: Head is atraumatic, normocephalic. Eyes: Bilateral conjunctivae are clear. NECK: Supple. No JVD. CARDIOVASCULAR: S1 and S2. No murmurs. PULMONARY: Minimal inspiratory wheezing. GASTROINTESTINAL: Soft, nontender. Positive bowel sounds. MUSCULOSKELETAL: No edema. No weakness. The patient is a wheelchair assist. ASSESSMENT: 1. Schizophrenia. 2. Hypertension. 3. Chronic obstructive pulmonary disease. 4. Chronic kidney disease. 5. Urinary tract infection. 6. Anxiety. 7. Insomnia. PLAN: We will continue the patient with the psychiatric consult. We will continue antibiotics for his UTI and we will closely monitor and keep the patient here in the [facility]. [facility]# [id number]
--- NOTE | 2016-08-26 03:00 | Progress Notes ---
Case was discussed with staff of the patient, reviewed records. The patient continues to be irritable, easily agitated and angry. Continues to be paranoid, at times restless. Though he is more visible on the unit, he continues to minimize his symptoms, continues to have poor insight and continues to be unable to make safe plan for self care. He is compliant with the medication with no side effects, no sedation, no nausea and no extrapyramidal symptoms. He is compliant with the medication with no side effects. He is on Zyprexa 5 mg in the morning and 7.5 mg at bedtime with no sedation, no nausea and no extrapyramidal symptoms. We will continue to work with the patient in group therapy, milieu therapy and adjust medication as needed. JOB# [id number]
[2016-08-26] MEDS: Ferrous Sulfate 325 MG TAB PO SCH (08:36)
[2016-08-26] MEDS: Multivitamin Tab PO SCH (08:36)
[2016-08-26] MEDS: Calcium Carb/Vit D 500 mg/200 U Tab PO SCH (08:36)
[2016-08-26] MEDS: OLANZapine 5 mg Oral Disintegrating Tab PO SCH ×2 (08:36→21:22)
--- NOTE | 2016-08-26 12:32 | General Progress Note ---
Subjective - Review of Systems Subjective: agitated Objective - Results Result Diagrams: 08/19/16 21:40 08/19/16 21:40 Recent Labs: Laboratory Last Values WBC 7.9 Th/cmm (4.8-10.8) 08/19/16 21:40 RBC 3.77 Mil/cmm (3.80-5.80) L 08/19/16 21:40 Hgb 11.5 gm/dL (12.6-17.4) L 08/19/16 21:40 Hct 34.4 % (39.0-49.0) L 08/19/16 21:40 MCV 91.3 fl (80-99) 08/19/16 21:40 MCH 30.6 pg (27.0-31.0) 08/19/16 21:40 MCHC Differential 33.5 pg (28.0-36.0) 08/19/16 21:40 RDW 14.1 % (11.5-20.0) 08/19/16 21:40 Plt Count 268 Th/cmm (150-400) 08/19/16 21:40 MPV 8.0 fl 08/19/16 21:40 Neutrophils % 49.0 % (40.0-80.0) 08/19/16 21:40 Lymphocytes % 35.0 % (20.0-50.0) 08/19/16 21:40 Monocytes % 10.1 % (2.0-10.0) H 08/19/16 21:40 Eosinophils % 3.1 % (0.0-5.0) 08/19/16 21:40 Basophils % 2.8 % (0.0-2.0) H 08/19/16 21:40 Sodium 137 mEq/L (136-145) 08/19/16 21:40 Potassium 5.1 mEq/L (3.5-5.1) 08/19/16 21:40 Chloride 114 mEq/L (98-107) H 08/19/16 21:40 Carbon Dioxide 18.8 mEq/L (21.0-31.0) L 08/19/16 21:40 Anion Gap 9.3 (7.0-16.0) 08/19/16 21:40 BUN 43 mg/dL (7-25) H 08/19/16 21:40 Creatinine 2.4 mg/dL (0.7-1.3) H 08/19/16 21:40 Est GFR ( Amer) TNP 08/19/16 21:40 Est GFR (Non-Af Amer) TNP 08/19/16 21:40 BUN/Creatinine Ratio 17.9 08/19/16 21:40 Glucose 78 mg/dL (70-105) 08/19/16 21:40 Calcium 9.4 mg/dL (8.6-10.3) 08/19/16 21:40 Triglycerides 100 mg/dL (<150) 08/19/16 21:40 Cholesterol 163 mg/dL (<200) 08/19/16 21:40 LDL Cholesterol Direct 124 mg/dL (75-193) 08/19/16 21:40 HDL Cholesterol 36 mg/dL (23-92) 08/19/16 21:40 TSH 2.31 uIU/ml (0.34-5.60) 08/19/16 21:40 Urine Source CLEAN C 08/19/16 20:57 Urine Color STRAW 08/19/16 20:57 Urine Clarity HAZY (CLEAR) 08/19/16 20:57 Urine pH 5.5 08/19/16 20:57 Ur Specific [place] 1.020 (1.005-1.030) 08/19/16 20:57 Urine Protein 100 mg/dL (NEGATIVE) H 08/19/16 20:57 Urine Glucose (UA) NEGATIVE mg/dL (NEGATIVE) 08/19/16 20:57 Urine Ketones NEGATIVE mg/dL (NEGATIVE) 08/19/16 20:57 Urine Blood TRACE (NEGATIVE) 08/19/16 20:57 Urine Nitrate NEGATIVE (NEGATIVE) 08/19/16 20:57 Urine Bilirubin NEGATIVE (NEGATIVE) 08/19/16 20:57 Urine Urobilinogen 0.2 E.U./dL (0.2 - 1.0) 08/19/16 20:57 Ur Leukocyte Esterase SMALL (NEGATIVE) H 08/19/16 20:57 Urine RBC 2-5 /hpf (0-5) H 08/19/16 20:57 Urine WBC 25-50 /hpf (0-5) H 08/19/16 20:57 Ur Epithelial Cells NONE SEEN /lpf (FEW) 08/19/16 20:57 Urine Bacteria NONE SEEN /hpf (NONE SEEN) 08/19/16 20:57 RPR NONREACTIVE (NONREACTIVE) 08/19/16 21:40 Hepatitis A IgM Ab Negative (Negative) 08/19/16 21:40 Hep Bs Antigen Negative (Negative) 08/19/16 21:40 Hep B Core IgM Ab Negative (Negative) 08/19/16 21:40 Hepatitis C Antibody >11.0 s/co ratio (0.0-0.9) H 08/19/16 21:40 - Physical Exam Vitals and I&O: Vital Signs Temp 98.1 F 08/26/16 06:07 Pulse 65 08/26/16 06:07 Resp 20 08/26/16 06:07 BP 109/70 08/26/16 06:07 Pulse Ox 96 08/26/16 06:07 Intake & Output 08/25/16 08/26/16 08/26/16 18:59 06:59 18:59 Intake Total 900 240 Balance 900 240 Intake: Oral 900 240 Other: # Voids 4 2 # Bowel Movements 1 0 Active Medications: Current Medications Acetaminophen (Tylenol) 650 mg PO Q4HR PRN PRN Reason: Pain Stop: 10/18/16 23:37 Al Hydrox/Mg Hydrox/Simethicone (Maalox) 30 ml PO Q4HR PRN PRN Reason: GI DISTRESS Stop: 10/18/16 23:37 Ascorbic Acid (Vitamin C) 500 mg PO DAILY [facility] Stop: 10/19/16 08:59 Last Admin: 08/26/16 08:36 Dose: 500 mg Bisacodyl (Dulcolax 10 Mg Supp) 10 mg RC Q48HR PRN PRN Reason: Constipation Stop: 10/19/16 00:21 Calcium/Vitamin D (Oscal W/Vitamin D) 1 tab PO DAILY [facility] Stop: 10/19/16 08:59 Last Admin: 08/26/16 08:36 Dose: 1 tab Ciprofloxacin (Cipro) 250 mg PO BID [facility] Stop: 10/21/16 08:59 Last Admin: 08/26/16 08:36 Dose: 250 mg Docusate Sodium (Colace) 100 mg PO DAILY [facility] Stop: 10/19/16 08:59 Last Admin: 08/26/16 08:36 Dose: 100 mg Ferrous Sulfate (Iron) 325 mg PO DAILY [facility] Stop: 10/19/16 08:59 Last Admin: 08/26/16 08:36 Dose: 325 mg Gabapentin (Neurontin) 600 mg PO BID [facility] Stop: 10/19/16 08:59 Last Admin: 08/26/16 08:36 Dose: 600 mg Lorazepam (Ativan) 0.5 mg PO Q4HR PRN; Protocol PRN Reason: Anxiety Stop: 09/18/16 23:37 Losartan Potassium (Cozaar) 50 mg PO DAILY [facility] Stop: 10/19/16 08:59 Last Admin: 08/25/16 10:12 Dose: 50 mg Multivitamins/Vitamin C (Theragran) 1 tab PO DAILY [facility] Stop: 10/19/16 08:59 Last Admin: 08/26/16 08:36 Dose: 1 tab Olanzapine (Zyprexa Zydis) 7.5 mg PO HS [facility] PRN Reason: Protocol Stop: 10/21/16 20:59 Last Admin: 08/25/16 21:20 Dose: 7.5 mg Olanzapine (Zyprexa Zydis) 7.5 mg PO DAILY [facility] PRN Reason: Protocol Stop: 10/25/16 11:09 Senna (Senna) 17.2 mg PO HS [facility] Stop: 10/19/16 20:59 Last Admin: 08/25/16 21:21 Dose: Not Given Zolpidem Tartrate (Ambien) 5 mg PO HS PRN PRN Reason: Insomnia Stop: 10/18/16 23:37 Assessment/Plan - Assessment Assessment: severe agitation psychosis uti - Plan Plan: antibiotics
--- NOTE | 2016-08-27 01:40 | Progress Notes ---
Case discussed with staff of the patient. The patient continues to be paranoid, internally preoccupied. When I tried to talk to him today, he was very upset to my line of questioning and answering in a very aggressive manner. He is still unpredictable, impulsive, needing redirection. He has been compliant with the medications with no side effects, no sedation, no nausea, no extrapyramidal symptoms. He is on Zyprexa 5 mg in the morning and 7.5 mg at bedtime, I will be increasing the dose in the morning to 7.5 and so far, no side effects, no sedation, no nausea, no extrapyramidal symptoms and we will continue to work with the patient in group therapy, milieu therapy, adjust the medication as needed. JOB# [id number]
[2016-08-27] MEDS: Ferrous Sulfate 325 MG TAB PO SCH (09:10)
[2016-08-27] MEDS: Calcium Carb/Vit D 500 mg/200 U Tab PO SCH (09:12)
[2016-08-27] MEDS: Multivitamin Tab PO SCH (09:12)
[2016-08-27] MEDS: OLANZapine 5 mg Oral Disintegrating Tab PO SCH ×2 (09:13→20:47)
--- NOTE | 2016-08-27 09:27 | General Progress Note ---
Subjective - Review of Systems Subjective: agitated Objective - Results Result Diagrams: 08/19/16 21:40 08/19/16 21:40 Recent Labs: Laboratory Last Values WBC 7.9 Th/cmm (4.8-10.8) 08/19/16 21:40 RBC 3.77 Mil/cmm (3.80-5.80) L 08/19/16 21:40 Hgb 11.5 gm/dL (12.6-17.4) L 08/19/16 21:40 Hct 34.4 % (39.0-49.0) L 08/19/16 21:40 MCV 91.3 fl (80-99) 08/19/16 21:40 MCH 30.6 pg (27.0-31.0) 08/19/16 21:40 MCHC Differential 33.5 pg (28.0-36.0) 08/19/16 21:40 RDW 14.1 % (11.5-20.0) 08/19/16 21:40 Plt Count 268 Th/cmm (150-400) 08/19/16 21:40 MPV 8.0 fl 08/19/16 21:40 Neutrophils % 49.0 % (40.0-80.0) 08/19/16 21:40 Lymphocytes % 35.0 % (20.0-50.0) 08/19/16 21:40 Monocytes % 10.1 % (2.0-10.0) H 08/19/16 21:40 Eosinophils % 3.1 % (0.0-5.0) 08/19/16 21:40 Basophils % 2.8 % (0.0-2.0) H 08/19/16 21:40 Sodium 137 mEq/L (136-145) 08/19/16 21:40 Potassium 5.1 mEq/L (3.5-5.1) 08/19/16 21:40 Chloride 114 mEq/L (98-107) H 08/19/16 21:40 Carbon Dioxide 18.8 mEq/L (21.0-31.0) L 08/19/16 21:40 Anion Gap 9.3 (7.0-16.0) 08/19/16 21:40 BUN 43 mg/dL (7-25) H 08/19/16 21:40 Creatinine 2.4 mg/dL (0.7-1.3) H 08/19/16 21:40 Est GFR ( Amer) TNP 08/19/16 21:40 Est GFR (Non-Af Amer) TNP 08/19/16 21:40 BUN/Creatinine Ratio 17.9 08/19/16 21:40 Glucose 78 mg/dL (70-105) 08/19/16 21:40 Calcium 9.4 mg/dL (8.6-10.3) 08/19/16 21:40 Triglycerides 100 mg/dL (<150) 08/19/16 21:40 Cholesterol 163 mg/dL (<200) 08/19/16 21:40 LDL Cholesterol Direct 124 mg/dL (75-193) 08/19/16 21:40 HDL Cholesterol 36 mg/dL (23-92) 08/19/16 21:40 TSH 2.31 uIU/ml (0.34-5.60) 08/19/16 21:40 Urine Source CLEAN C 08/19/16 20:57 Urine Color STRAW 08/19/16 20:57 Urine Clarity HAZY (CLEAR) 08/19/16 20:57 Urine pH 5.5 08/19/16 20:57 Ur Specific [place] 1.020 (1.005-1.030) 08/19/16 20:57 Urine Protein 100 mg/dL (NEGATIVE) H 08/19/16 20:57 Urine Glucose (UA) NEGATIVE mg/dL (NEGATIVE) 08/19/16 20:57 Urine Ketones NEGATIVE mg/dL (NEGATIVE) 08/19/16 20:57 Urine Blood TRACE (NEGATIVE) 08/19/16 20:57 Urine Nitrate NEGATIVE (NEGATIVE) 08/19/16 20:57 Urine Bilirubin NEGATIVE (NEGATIVE) 08/19/16 20:57 Urine Urobilinogen 0.2 E.U./dL (0.2 - 1.0) 08/19/16 20:57 Ur Leukocyte Esterase SMALL (NEGATIVE) H 08/19/16 20:57 Urine RBC 2-5 /hpf (0-5) H 08/19/16 20:57 Urine WBC 25-50 /hpf (0-5) H 08/19/16 20:57 Ur Epithelial Cells NONE SEEN /lpf (FEW) 08/19/16 20:57 Urine Bacteria NONE SEEN /hpf (NONE SEEN) 08/19/16 20:57 RPR NONREACTIVE (NONREACTIVE) 08/19/16 21:40 Hepatitis A IgM Ab Negative (Negative) 08/19/16 21:40 Hep Bs Antigen Negative (Negative) 08/19/16 21:40 Hep B Core IgM Ab Negative (Negative) 08/19/16 21:40 Hepatitis C Antibody >11.0 s/co ratio (0.0-0.9) H 08/19/16 21:40 - Physical Exam Vitals and I&O: Vital Signs Temp 98 F 08/27/16 06:12 Pulse 75 08/27/16 09:14 Resp 20 08/27/16 06:12 BP 116/82 08/27/16 09:14 Pulse Ox 97 08/27/16 06:12 Intake & Output 08/26/16 08/27/16 08/27/16 18:59 06:59 18:59 Intake Total 1100 120 Balance 1100 120 Intake: Oral 1100 120 Other: # Voids 3 3 # Bowel Movements 0 Active Medications: Current Medications Acetaminophen (Tylenol) 650 mg PO Q4HR PRN PRN Reason: Pain Stop: 10/18/16 23:37 Al Hydrox/Mg Hydrox/Simethicone (Maalox) 30 ml PO Q4HR PRN PRN Reason: GI DISTRESS Stop: 10/18/16 23:37 Ascorbic Acid (Vitamin C) 500 mg PO DAILY [facility] Stop: 10/19/16 08:59 Last Admin: 08/27/16 09:10 Dose: 500 mg Bisacodyl (Dulcolax 10 Mg Supp) 10 mg RC Q48HR PRN PRN Reason: Constipation Stop: 10/19/16 00:21 Calcium/Vitamin D (Oscal W/Vitamin D) 1 tab PO DAILY [facility] Stop: 10/19/16 08:59 Last Admin: 08/27/16 09:12 Dose: 1 tab Ciprofloxacin (Cipro) 250 mg PO BID [facility] Stop: 10/21/16 08:59 Last Admin: 08/27/16 09:10 Dose: 250 mg Docusate Sodium (Colace) 100 mg PO DAILY [facility] Stop: 10/19/16 08:59 Last Admin: 08/27/16 09:10 Dose: 100 mg Ferrous Sulfate (Iron) 325 mg PO DAILY [facility] Stop: 10/19/16 08:59 Last Admin: 02/15/17 09:10 Dose: 325 mg Gabapentin (Neurontin) 600 mg PO BID [facility] Stop: 10/19/16 08:59 Last Admin: 08/27/16 09:12 Dose: 600 mg Lorazepam (Ativan) 0.5 mg PO Q4HR PRN; Protocol PRN Reason: Anxiety Stop: 09/18/16 23:37 Losartan Potassium (Cozaar) 50 mg PO DAILY [facility] Stop: 10/19/16 08:59 Last Admin: 08/27/16 09:14 Dose: 50 mg Multivitamins/Vitamin C (Theragran) 1 tab PO DAILY [facility] Stop: 10/19/16 08:59 Last Admin: 08/27/16 09:12 Dose: 1 tab Olanzapine (Zyprexa Zydis) 7.5 mg PO HS [facility] PRN Reason: Protocol Stop: 10/21/16 20:59 Last Admin: 08/26/16 21:22 Dose: 7.5 mg Olanzapine (Zyprexa Zydis) 7.5 mg PO DAILY [facility] PRN Reason: Protocol Stop: 10/25/16 11:09 Last Admin: 08/27/16 09:13 Dose: 7.5 mg Senna (Senna) 17.2 mg PO HS [facility] Stop: 10/19/16 20:59 Last Admin: 08/26/16 21:22 Dose: 17.2 mg Zolpidem Tartrate (Ambien) 5 mg PO HS PRN PRN Reason: Insomnia Stop: 10/18/16 23:37 Assessment/Plan - Assessment Assessment: severe agitation psychosis uti - Plan Plan: antibiotics
--- NOTE | 2016-08-28 02:52 | Progress Notes ---
SUBJECTIVE: The patient currently in the hospital, aggressive at the [facility], agitated, irritable, could not be cared for on [id number]. The patient states he has no idea why he is here. Slow to respond, noted to be homeless. He has no plans for discharge at this time. He does not know where he lives, noted to be suspicion and paranoid, remains withdrawn, isolative, hypervigilance and seems disoriented. ASSESSMENT PLAN: The patient remains internally preoccupied, still impulsive and unpredictable due to the severity of his symptoms and the events that brought him to the hospital. Medications reviewed. Currently on olanzapine, recent dose adjustments. We will continue to monitor. No side effects noted. The patient remains symptomatic. [facility]# [id number]
--- NOTE | 2016-08-28 08:14 | General Progress Note ---
Subjective - Review of Systems Subjective: agitated Objective - Results Result Diagrams: 08/19/16 21:40 08/19/16 21:40 Recent Labs: Laboratory Last Values WBC 7.9 Th/cmm (4.8-10.8) 08/19/16 21:40 RBC 3.77 Mil/cmm (3.80-5.80) L 08/19/16 21:40 Hgb 11.5 gm/dL (12.6-17.4) L 08/19/16 21:40 Hct 34.4 % (39.0-49.0) L 08/19/16 21:40 MCV 91.3 fl (80-99) 08/19/16 21:40 MCH 30.6 pg (27.0-31.0) 08/19/16 21:40 MCHC Differential 33.5 pg (28.0-36.0) 08/19/16 21:40 RDW 14.1 % (11.5-20.0) 08/19/16 21:40 Plt Count 268 Th/cmm (150-400) 08/19/16 21:40 MPV 8.0 fl 08/19/16 21:40 Neutrophils % 49.0 % (40.0-80.0) 08/19/16 21:40 Lymphocytes % 35.0 % (20.0-50.0) 08/19/16 21:40 Monocytes % 10.1 % (2.0-10.0) H 08/19/16 21:40 Eosinophils % 3.1 % (0.0-5.0) 08/19/16 21:40 Basophils % 2.8 % (0.0-2.0) H 08/19/16 21:40 Sodium 137 mEq/L (136-145) 08/19/16 21:40 Potassium 5.1 mEq/L (3.5-5.1) 08/19/16 21:40 Chloride 114 mEq/L (98-107) H 08/19/16 21:40 Carbon Dioxide 18.8 mEq/L (21.0-31.0) L 08/19/16 21:40 Anion Gap 9.3 (7.0-16.0) 08/19/16 21:40 BUN 43 mg/dL (7-25) H 08/19/16 21:40 Creatinine 2.4 mg/dL (0.7-1.3) H 08/19/16 21:40 Est GFR ( Amer) TNP 08/19/16 21:40 Est GFR (Non-Af Amer) TNP 08/19/16 21:40 BUN/Creatinine Ratio 17.9 08/19/16 21:40 Glucose 78 mg/dL (70-105) 08/19/16 21:40 Calcium 9.4 mg/dL (8.6-10.3) 08/19/16 21:40 Triglycerides 100 mg/dL (<150) 08/19/16 21:40 Cholesterol 163 mg/dL (<200) 08/19/16 21:40 LDL Cholesterol Direct 124 mg/dL (75-193) 08/19/16 21:40 HDL Cholesterol 36 mg/dL (23-92) 08/19/16 21:40 TSH 2.31 uIU/ml (0.34-5.60) 08/19/16 21:40 Urine Source CLEAN C 08/19/16 20:57 Urine Color STRAW 08/19/16 20:57 Urine Clarity HAZY (CLEAR) 08/19/16 20:57 Urine pH 5.5 08/19/16 20:57 Ur Specific [place] 1.020 (1.005-1.030) 08/19/16 20:57 Urine Protein 100 mg/dL (NEGATIVE) H 08/19/16 20:57 Urine Glucose (UA) NEGATIVE mg/dL (NEGATIVE) 08/19/16 20:57 Urine Ketones NEGATIVE mg/dL (NEGATIVE) 08/19/16 20:57 Urine Blood TRACE (NEGATIVE) 08/19/16 20:57 Urine Nitrate NEGATIVE (NEGATIVE) 08/19/16 20:57 Urine Bilirubin NEGATIVE (NEGATIVE) 08/19/16 20:57 Urine Urobilinogen 0.2 E.U./dL (0.2 - 1.0) 08/19/16 20:57 Ur Leukocyte Esterase SMALL (NEGATIVE) H 08/19/16 20:57 Urine RBC 2-5 /hpf (0-5) H 08/19/16 20:57 Urine WBC 25-50 /hpf (0-5) H 08/19/16 20:57 Ur Epithelial Cells NONE SEEN /lpf (FEW) 08/19/16 20:57 Urine Bacteria NONE SEEN /hpf (NONE SEEN) 08/19/16 20:57 RPR NONREACTIVE (NONREACTIVE) 08/19/16 21:40 Hepatitis A IgM Ab Negative (Negative) 08/19/16 21:40 Hep Bs Antigen Negative (Negative) 08/19/16 21:40 Hep B Core IgM Ab Negative (Negative) 08/19/16 21:40 Hepatitis C Antibody >11.0 s/co ratio (0.0-0.9) H 08/19/16 21:40 - Physical Exam Vitals and I&O: Vital Signs Temp 98 F 08/28/16 06:34 Pulse 72 08/28/16 06:34 Resp 20 08/28/16 06:34 BP 125/78 08/28/16 06:34 Pulse Ox 98 08/28/16 06:34 Intake & Output 08/27/16 08/28/16 08/28/16 18:59 06:59 18:59 Intake Total 1000 120 Balance 1000 120 Intake: Oral 1000 120 Other: # Voids 3 3 # Bowel Movements 1 Active Medications: Current Medications Acetaminophen (Tylenol) 650 mg PO Q4HR PRN PRN Reason: Pain Stop: 10/18/16 23:37 Al Hydrox/Mg Hydrox/Simethicone (Maalox) 30 ml PO Q4HR PRN PRN Reason: GI DISTRESS Stop: 10/18/16 23:37 Ascorbic Acid (Vitamin C) 500 mg PO DAILY [facility] Stop: 10/19/16 08:59 Last Admin: 08/27/16 09:10 Dose: 500 mg Bisacodyl (Dulcolax 10 Mg Supp) 10 mg RC Q48HR PRN PRN Reason: Constipation Stop: 10/19/16 00:21 Calcium/Vitamin D (Oscal W/Vitamin D) 1 tab PO DAILY [facility] Stop: 10/19/16 08:59 Last Admin: 08/27/16 09:12 Dose: 1 tab Ciprofloxacin (Cipro) 250 mg PO BID [facility] Stop: 10/21/16 08:59 Last Admin: 08/27/16 18:14 Dose: 250 mg Docusate Sodium (Colace) 100 mg PO DAILY [facility] Stop: 10/19/16 08:59 Last Admin: 08/27/16 09:10 Dose: 100 mg Ferrous Sulfate (Iron) 325 mg PO DAILY [facility] Stop: 10/19/16 08:59 Last Admin: 02/15/17 09:10 Dose: 325 mg Gabapentin (Neurontin) 600 mg PO BID [facility] Stop: 10/19/16 08:59 Last Admin: 08/27/16 18:15 Dose: 600 mg Lorazepam (Ativan) 0.5 mg PO Q4HR PRN; Protocol PRN Reason: Anxiety Stop: 09/18/16 23:37 Losartan Potassium (Cozaar) 50 mg PO DAILY [facility] Stop: 10/19/16 08:59 Last Admin: 08/27/16 09:14 Dose: 50 mg Multivitamins/Vitamin C (Theragran) 1 tab PO DAILY [facility] Stop: 10/19/16 08:59 Last Admin: 08/27/16 09:12 Dose: 1 tab Olanzapine (Zyprexa Zydis) 7.5 mg PO HS [facility] PRN Reason: Protocol Stop: 10/21/16 20:59 Last Admin: 08/27/16 20:47 Dose: 7.5 mg Olanzapine (Zyprexa Zydis) 7.5 mg PO DAILY [facility] PRN Reason: Protocol Stop: 10/25/16 11:09 Last Admin: 08/27/16 09:13 Dose: 7.5 mg Senna (Senna) 17.2 mg PO HS [facility] Stop: 10/19/16 20:59 Last Admin: 08/27/16 20:47 Dose: 17.2 mg Zolpidem Tartrate (Ambien) 5 mg PO HS PRN PRN Reason: Insomnia Stop: 10/18/16 23:37 Assessment/Plan - Assessment Assessment: severe agitation psychosis uti - Plan Plan: antibiotics
[2016-08-28] MEDS: Ferrous Sulfate 325 MG TAB PO SCH (09:24)
[2016-08-28] MEDS: Calcium Carb/Vit D 500 mg/200 U Tab PO SCH (09:24)
[2016-08-28] MEDS: Multivitamin Tab PO SCH (09:26)
[2016-08-28] MEDS: OLANZapine 5 mg Oral Disintegrating Tab PO SCH (09:30)
[2016-08-28] MEDS ORDERED: OLANZapine 5 mg Oral Disintegrating Tab PO SCH (13:16)
--- NOTE | 2016-08-29 03:48 | Progress Notes ---
SUBJECTIVE: Chart reviewed and the patient interviewed. Also discussed the patient's condition with the staff and reviewed records and labs. The patient remains extremely angry and he is still in irritable mood. The patient also is still agitated and he still wants to be left alone and guarded. Also, is still having severe mood swings and severe anxiety. The patient also still thinks that he can return back to the [facility] where he came from, but they are refusing to take him and the patient has difficulty accepting that. Otherwise, no side effects of medications. ASSESSMENT: The patient is still agitated and psychotic and can be dangerous to others. TREATMENT PLAN: We will continue monitoring his behavior and his condition closely. Also, we will increase Zyprexa to 7.5 mg in the morning and 10 mg at bedtime and will continue to follow up. JOB# [id number]
[2016-08-29] MEDS ORDERED: OLANZapine 10 mg Oral Disintegrating Tab PO SCH (07:24)
--- NOTE | 2016-08-29 08:10 | General Progress Note ---
Subjective - Review of Systems Subjective: agitated Objective - Results Result Diagrams: 08/19/16 21:40 08/19/16 21:40 Recent Labs: Laboratory Last Values WBC 7.9 Th/cmm (4.8-10.8) 08/19/16 21:40 RBC 3.77 Mil/cmm (3.80-5.80) L 08/19/16 21:40 Hgb 11.5 gm/dL (12.6-17.4) L 08/19/16 21:40 Hct 34.4 % (39.0-49.0) L 08/19/16 21:40 MCV 91.3 fl (80-99) 08/19/16 21:40 MCH 30.6 pg (27.0-31.0) 08/19/16 21:40 MCHC Differential 33.5 pg (28.0-36.0) 08/19/16 21:40 RDW 14.1 % (11.5-20.0) 08/19/16 21:40 Plt Count 268 Th/cmm (150-400) 08/19/16 21:40 MPV 8.0 fl 08/19/16 21:40 Neutrophils % 49.0 % (40.0-80.0) 08/19/16 21:40 Lymphocytes % 35.0 % (20.0-50.0) 08/19/16 21:40 Monocytes % 10.1 % (2.0-10.0) H 08/19/16 21:40 Eosinophils % 3.1 % (0.0-5.0) 08/19/16 21:40 Basophils % 2.8 % (0.0-2.0) H 08/19/16 21:40 Sodium 137 mEq/L (136-145) 08/19/16 21:40 Potassium 5.1 mEq/L (3.5-5.1) 08/19/16 21:40 Chloride 114 mEq/L (98-107) H 08/19/16 21:40 Carbon Dioxide 18.8 mEq/L (21.0-31.0) L 08/19/16 21:40 Anion Gap 9.3 (7.0-16.0) 08/19/16 21:40 BUN 43 mg/dL (7-25) H 08/19/16 21:40 Creatinine 2.4 mg/dL (0.7-1.3) H 08/19/16 21:40 Est GFR ( Amer) TNP 08/19/16 21:40 Est GFR (Non-Af Amer) TNP 08/19/16 21:40 BUN/Creatinine Ratio 17.9 08/19/16 21:40 Glucose 78 mg/dL (70-105) 08/19/16 21:40 Calcium 9.4 mg/dL (8.6-10.3) 08/19/16 21:40 Triglycerides 100 mg/dL (<150) 08/19/16 21:40 Cholesterol 163 mg/dL (<200) 08/19/16 21:40 LDL Cholesterol Direct 124 mg/dL (75-193) 08/19/16 21:40 HDL Cholesterol 36 mg/dL (23-92) 08/19/16 21:40 TSH 2.31 uIU/ml (0.34-5.60) 08/19/16 21:40 Urine Source CLEAN C 08/19/16 20:57 Urine Color STRAW 08/19/16 20:57 Urine Clarity HAZY (CLEAR) 08/19/16 20:57 Urine pH 5.5 08/19/16 20:57 Ur Specific [place] 1.020 (1.005-1.030) 08/19/16 20:57 Urine Protein 100 mg/dL (NEGATIVE) H 08/19/16 20:57 Urine Glucose (UA) NEGATIVE mg/dL (NEGATIVE) 08/19/16 20:57 Urine Ketones NEGATIVE mg/dL (NEGATIVE) 08/19/16 20:57 Urine Blood TRACE (NEGATIVE) 08/19/16 20:57 Urine Nitrate NEGATIVE (NEGATIVE) 08/19/16 20:57 Urine Bilirubin NEGATIVE (NEGATIVE) 08/19/16 20:57 Urine Urobilinogen 0.2 E.U./dL (0.2 - 1.0) 08/19/16 20:57 Ur Leukocyte Esterase SMALL (NEGATIVE) H 08/19/16 20:57 Urine RBC 2-5 /hpf (0-5) H 08/19/16 20:57 Urine WBC 25-50 /hpf (0-5) H 08/19/16 20:57 Ur Epithelial Cells NONE SEEN /lpf (FEW) 08/19/16 20:57 Urine Bacteria NONE SEEN /hpf (NONE SEEN) 08/19/16 20:57 RPR NONREACTIVE (NONREACTIVE) 08/19/16 21:40 Hepatitis A IgM Ab Negative (Negative) 08/19/16 21:40 Hep Bs Antigen Negative (Negative) 08/19/16 21:40 Hep B Core IgM Ab Negative (Negative) 08/19/16 21:40 Hepatitis C Antibody >11.0 s/co ratio (0.0-0.9) H 08/19/16 21:40 - Physical Exam Vitals and I&O: Vital Signs Temp 97.6 F 08/29/16 07:01 Pulse 68 08/29/16 07:01 Resp 19 08/29/16 07:01 BP 103/65 08/29/16 07:01 Pulse Ox 97 08/29/16 07:01 Intake & Output 08/28/16 08/29/16 08/29/16 18:59 06:59 18:59 Weight (lbs) 58.74 kg Other: # Voids 2 2 Active Medications: Current Medications Acetaminophen (Tylenol) 650 mg PO Q4HR PRN PRN Reason: Pain Stop: 10/18/16 23:37 Al Hydrox/Mg Hydrox/Simethicone (Maalox) 30 ml PO Q4HR PRN PRN Reason: GI DISTRESS Stop: 10/18/16 23:37 Ascorbic Acid (Vitamin C) 500 mg PO DAILY [facility] Stop: 10/19/16 08:59 Last Admin: 08/28/16 09:26 Dose: 500 mg Bisacodyl (Dulcolax 10 Mg Supp) 10 mg RC Q48HR PRN PRN Reason: Constipation Stop: 10/19/16 00:21 Calcium/Vitamin D (Oscal W/Vitamin D) 1 tab PO DAILY [facility] Stop: 10/19/16 08:59 Last Admin: 08/28/16 09:24 Dose: 1 tab Ciprofloxacin (Cipro) 250 mg PO BID [facility] Stop: 10/21/16 08:59 Last Admin: 08/28/16 17:53 Dose: 250 mg Docusate Sodium (Colace) 100 mg PO DAILY [facility] Stop: 10/19/16 08:59 Last Admin: 08/28/16 09:27 Dose: Not Given Ferrous Sulfate (Iron) 325 mg PO DAILY [facility] Stop: 10/19/16 08:59 Last Admin: 08/28/16 09:24 Dose: 325 mg Gabapentin (Neurontin) 600 mg PO BID [facility] Stop: 10/19/16 08:59 Last Admin: 08/28/16 17:53 Dose: 600 mg Lorazepam (Ativan) 0.5 mg PO Q4HR PRN; Protocol PRN Reason: Anxiety Stop: 09/18/16 23:37 Losartan Potassium (Cozaar) 50 mg PO DAILY [facility] Stop: 10/19/16 08:59 Last Admin: 08/28/16 09:29 Dose: 50 mg Multivitamins/Vitamin C (Theragran) 1 tab PO DAILY [facility] Stop: 10/19/16 08:59 Last Admin: 08/28/16 09:26 Dose: 1 tab Olanzapine (Zyprexa Zydis) 10 mg PO HS [facility] PRN Reason: Protocol Stop: 10/21/16 20:59 Last Admin: 08/28/16 20:34 Dose: 10 mg Olanzapine (Zyprexa Zydis) 10 mg PO DAILY [facility] PRN Reason: Protocol Stop: 10/25/16 11:09 Senna (Senna) 17.2 mg PO HS [facility] Stop: 10/19/16 20:59 Last Admin: 08/28/16 20:33 Dose: 17.2 mg Zolpidem Tartrate (Ambien) 5 mg PO HS PRN PRN Reason: Insomnia Stop: 10/18/16 23:37 Assessment/Plan - Assessment Assessment: severe agitation psychosis uti - Plan Plan: antibiotics
[2016-08-29] MEDS: Calcium Carb/Vit D 500 mg/200 U Tab PO SCH (10:38)
[2016-08-29] MEDS: Ferrous Sulfate 325 MG TAB PO SCH (10:39)
[2016-08-29] MEDS: Multivitamin Tab PO SCH (10:40)
[2016-08-29] MEDS ORDERED: Haloperidol Lactate 5 mg/mL 1mL Vial IM STA (14:20)
[2016-08-29] MEDS ORDERED: Haloperidol Lactate 5 mg/mL 1mL Vial ONE (14:24)
--- NOTE | 2016-08-29 19:04 | Progress Notes ---
SUBJECTIVE: The patient was seen in the dining area, having dinner. Per nurses, the patient still has some episodes of isolating himself and having poor impulse control. OBJECTIVE: HEAD: Atraumatic, normocephalic. EYES: Bilateral pupils are equally round and reactive. NECK: Supple. No JVD. CARDIOVASCULAR: No murmurs. S1 and S2 heard. PULMONARY: Minimal inspiratory wheezing noted. GASTROINTESTINAL: Positive bowel sounds, soft and nontender. MUSCULOSKELETAL: No edema. No weakness. The patient is wheelchair assist. ASSESSMENT: 1. Schizophrenia. 2. Anxiety. 3. Hypertension. 4. Chronic obstructive pulmonary disease. 5. Chronic kidney disease. 6. Insomnia. PLAN: We will continue to keep the patient in the Psych Unit. We will have the psych doctor to follow up with him and monitor the patient's behavior. JOB# [id number]
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
== END 2016-08-29 14:30 | DRG 885 ==
LOC: ER 18:02 → GERO 22:35
PROVIDERS: ADMIT Psychiatry & Neurology Psychiatry; ATTEND Psychiatry & Neurology Psychiatry
DX: F29 Unspecified psychosis not due to a substance or known physiological condition (principal); J44.9 Chronic obstructive pulmonary disease, unspecified; N39.0 Urinary tract infection, site not specified; K21.9 Gastro-esophageal reflux disease without esophagitis; I12.9 Hypertensive chronic kidney disease with stage 1 through stage 4 chronic kidney disease, or unspecified chronic kidney disease; N18.3 Chronic kidney disease, stage 3 (moderate); F20.9 Schizophrenia, unspecified
CPT/HCPCS: 36415-UA; 80048-TC; 80061-TC; 80074-90; 81001-TC; 84443-TC; 85025-TC; 86592-TC; 87086-90; 90899; G0410; J1200; J1630; J2060; Z7610

== ENCOUNTER 2016-10-02 03:53 | Inpatient (IN) | payer MEDICARE, MEDICAID ==
[2016-10-02 04:56] VITALS: BP 142/81
[2016-10-02] MEDS: Sodium Chloride 0.9% 1,000 ML IV SCH ×2 (05:48→21:39)
[2016-10-02 06:52] LABS: % BASOPHILS 0.8 % (0.0-2.0); % EOSINOPHILS 1.7 % (0.0-5.0); % MONOCYTES 10.2 % (2.0-10.0); % NEUTROPHILS 70.3 % (40.0-80.0); HEMATOCRIT 35.2 % (39.0-49.0); HEMOGLOBIN 11.9 gm/dL (12.6-17.4); MEAN CELL VOLUME 89.4 fl (80-99); MEAN CORPUSCULAR HEMOGLOBIN 30.3 pg (27.0-31.0); MEAN CORPUSCULAR HGB CONC 33.9 pg (28.0-36.0); MEAN PLATELET VOLUME 8.5 fl; NEUTROPHILE ABSOLUTE 7.4 Th/cmm (1.8-8.0); PLATELET COUNT 304 Th/cmm (150-400); RED BLOOD COUNT 3.93 Mil/cmm (3.80-5.80); RED CELL DISTRIBUTION WIDTH 12.7 % (11.5-20.0)
[2016-10-02 06:56] LABS: WHITE BLOOD COUNT 10.6 Th/cmm (4.8-10.8)
[2016-10-02 07:19] LABS: ANION GAP 9.4 (7.0-16.0); BUN - UREA NITROGEN 28 mg/dL (7-25); BUN/CREATININE RATIO 13.3; CALCIUM SERUM 9.5 mg/dL (8.6-10.3); CHLORIDE 98 mEq/L (98-107); CREATININE - SERUM 2.1 mg/dL (0.7-1.3); GLUCOSE 85 mg/dL (70-105); POTASSIUM SERUM 4.4 mEq/L (3.5-5.1); SODIUM SERUM 128 mEq/L (136-145)
[2016-10-02] MEDS: Ferrous Sulfate 325 MG TAB PO SCH (08:38)
[2016-10-02] MEDS: cefTRIAXone 1 GM in Sodium Chloride 0.9% 50 ML IV SCH (08:38)
--- NOTE | 2016-10-02 10:10 | Consultation ---
AGE: 71. SEX: Male. PHYSICIAN: Dr. Bobo. GREASE AND TALLOW PUMPER: Dr. Acosta. REASON FOR THE CONSULT: Agitation and irritability. HISTORY OF PRESENT ILLNESS: The patient is a 71-year-old male who was admitted to the hospital from [facility] because of increased agitation and irritability. The patient has been confused and agitated and aggressive with the staff and unable to follow directions. He also was unable to follow any of staff directions. The patient also was getting angry when the staff was trying to help him with his ADLs. PAST PSYCHIATRIC HISTORY: The patient has history of psychosis and patient is taking Abilify and Neurontin. PAST MEDICAL HISTORY: ____ as per Dr. Bobo, the patient has hypertension and diabetes. SOCIAL HISTORY: The patient lives in a long term. No known alcohol or drug use. MENTAL STATUS EXAM: The patient appears his stated age. Anxious. Flat affect. Irritable mood. Rambling and talking ____ in Syriac language. The patient is actively responding to stimuli. The patient denies suicidal or homicidal ideations. The patient is alert and oriented to situation, but not to the place or person. Impaired immediate, recent and remote memories. Poor insight and judgment. ASSESSMENT: PRIMARY DIAGNOSIS: Unspecified psychosis. SECONDARY DIAGNOSIS: Chronic paranoid schizophrenia with acute exacerbation. TREATMENT PLAN: We will increase Abilify and continue Neurontin. We will monitor behavior. We will follow up closely. Thanks to Dr. Bobo and will follow up with you. [facility]# [id number]
[2016-10-02 16:37] LABS: URINE COLOR YELLOW
[2016-10-02 16:38] LABS: URINE BILIRUBIN NEGATIVE (NEGATIVE); URINE BLOOD TRACE (NEGATIVE); URINE GLUCOSE (UA) NEGATIVE (NEGATIVE); URINE KETONE NEGATIVE (NEGATIVE); URINE PH 6.5; URINE PROTEIN 100 mg/dL (NEGATIVE); URINE UROBILINOGEN 0.2 E.U./dL (0.2 - 1.0)
[2016-10-02 16:39] LABS: URINE BACTERIA NONE SEEN /hpf (NONE SEEN); URINE EPITHELIAL CELLS NONE SEEN /lpf (FEW)
[2016-10-02] MEDS ORDERED: OLANZapine 5 mg Oral Disintegrating Tab PO SCH (21:00)
[2016-10-02] MEDS: OLANZapine 5 mg Oral Disintegrating Tab PO SCH (21:25)
--- NOTE | 2016-10-02 23:14 | Infectious Disease Prog Note ---
Infectious Disease Subjective - Review of Systems Service Date: 10/02/16 Subjective: Consultation dictated. [id number] Infectious Disease Objective - Results Result Diagrams: 10/02/16 06:05 10/02/16 06:05 Recent Labs: Laboratory Last Values WBC 10.6 Th/cmm (4.8-10.8) D 10/02/16 06:05 RBC 3.93 Mil/cmm (3.80-5.80) 10/02/16 06:05 Hgb 11.9 gm/dL (12.6-17.4) L 10/02/16 06:05 Hct 35.2 % (39.0-49.0) L 10/02/16 06:05 MCV 89.4 fl (80-99) 10/02/16 06:05 MCH 30.3 pg (27.0-31.0) 10/02/16 06:05 MCHC Differential 33.9 pg (28.0-36.0) 10/02/16 06:05 RDW 12.7 % (11.5-20.0) 10/02/16 06:05 Plt Count 304 Th/cmm (150-400) 10/02/16 06:05 MPV 8.5 fl 10/02/16 06:05 Neutrophils % 70.3 % (40.0-80.0) 10/02/16 06:05 Lymphocytes % 17.0 % (20.0-50.0) L 10/02/16 06:05 Monocytes % 10.2 % (2.0-10.0) H 10/02/16 06:05 Eosinophils % 1.7 % (0.0-5.0) 10/02/16 06:05 Basophils % 0.8 % (0.0-2.0) 10/02/16 06:05 Eos Smear Source URINE 10/02/16 16:15 Eos Smear Total Cells NONE SEEN (NONE SEEN) 10/02/16 16:15 Sodium 128 mEq/L (136-145) L 10/02/16 06:05 Potassium 4.4 mEq/L (3.5-5.1) 10/02/16 06:05 Chloride 98 mEq/L (98-107) 10/02/16 06:05 Carbon Dioxide 25.0 mEq/L (21.0-31.0) 10/02/16 06:05 Anion Gap 9.4 (7.0-16.0) 10/02/16 06:05 BUN 28 mg/dL (7-25) H 10/02/16 06:05 Creatinine 2.1 mg/dL (0.7-1.3) H 10/02/16 06:05 Est GFR ( Amer) TNP 10/02/16 06:05 Est GFR (Non-Af Amer) TNP 10/02/16 06:05 BUN/Creatinine Ratio 13.3 10/02/16 06:05 Glucose 85 mg/dL (70-105) 10/02/16 06:05 Calcium 9.5 mg/dL (8.6-10.3) 10/02/16 06:05 Urine Source CLEAN C 10/02/16 16:15 Urine Color YELLOW 10/02/16 16:15 Urine Clarity CLEAR (CLEAR) 10/02/16 16:15 Urine pH 6.5 10/02/16 16:15 Ur Specific [place] 1.010 (1.005-1.030) 10/02/16 16:15 Urine Protein 100 mg/dL (NEGATIVE) H 10/02/16 16:15 Urine Glucose (UA) NEGATIVE mg/dL (NEGATIVE) 10/02/16 16:15 Urine Ketones NEGATIVE mg/dL (NEGATIVE) 10/02/16 16:15 Urine Blood TRACE (NEGATIVE) 10/02/16 16:15 Urine Nitrate NEGATIVE (NEGATIVE) 10/02/16 16:15 Urine Bilirubin NEGATIVE (NEGATIVE) 10/02/16 16:15 Urine Urobilinogen 0.2 E.U./dL (0.2 - 1.0) 10/02/16 16:15 Ur Leukocyte Esterase TRACE (NEGATIVE) H 10/02/16 16:15 Urine RBC 2-5 /hpf (0-5) H 10/02/16 16:15 Urine WBC 2-5 /hpf (0-5) H 10/02/16 16:15 Ur Epithelial Cells NONE SEEN /lpf (FEW) 10/02/16 16:15 Urine Bacteria NONE SEEN /hpf (NONE SEEN) 10/02/16 16:15 Ur Random Sodium 43 mmol/L 10/02/16 16:15 Urine Creatinine 18.0 mg/dl (39.0-259.0) L 03/23/17 16:15 - Physical Exam Vitals and I&O: Vital Signs Temp 98.2 F 10/02/16 20:00 Pulse 80 10/02/16 20:00 Resp 18 10/02/16 20:00 BP 123/70 10/02/16 20:00 Pulse Ox 95 10/02/16 20:00 Intake & Output 10/02/16 10/02/16 10/03/16 06:59 18:59 06:59 Intake Total 50 1000 Balance 50 1000 Weight (lbs) 65.771 kg Intake: Intake, IV Amount 50 1000 Sodium Chloride 0.9% 1, 1000 000 ml @ 75 mls/hr IV . [id number] [facility] Rx#:[id number] cefTRIAXone 1 gm In 50 Sodium Chloride 0.9% 50 ml @ 100 mls/hr IV Q24HR [facility] Rx#:[id number] Other: # Voids 2 Active Medications: Current Medications Acetaminophen (Tylenol) 650 mg PO Q4HR PRN PRN Reason: Pain Stop: 12/01/16 05:23 Docusate Sodium (Colace) 100 mg PO DAILY [facility] Stop: 12/01/16 08:59 Last Admin: 10/02/16 08:37 Dose: 100 mg Ferrous Sulfate (Iron) 325 mg PO DAILY [facility] Stop: 12/01/16 08:59 Last Admin: 10/02/16 08:38 Dose: 325 mg Gabapentin (Neurontin) 600 mg PO BID [facility] Stop: 12/01/16 08:59 Last Admin: 10/02/16 17:16 Dose: 600 mg Ceftriaxone Sodium 1 gm/ (Sodium Chloride) 50 mls @ 100 mls/hr IV Q24HR [facility] Stop: 12/01/16 08:59 Last Infusion: 10/02/16 18:22 Dose: Infused Sodium Chloride (Nacl 0.9%) 1,000 mls @ 75 mls/hr IV .[id number] [facility] Stop: 12/01/16 05:44 Last Admin: 10/02/16 21:39 Dose: 75 mls/hr Lorazepam (Ativan) 0.5 mg PO Q4HR PRN; Protocol PRN Reason: Anxiety Stop: 12/01/16 05:23 Last Admin: 10/02/16 21:24 Dose: 0.5 mg Losartan Potassium (Cozaar) 50 mg PO DAILY [facility] Stop: 12/01/16 08:59 Last Admin: 10/02/16 08:38 Dose: 50 mg Olanzapine (Zyprexa Zydis) 15 mg PO HS [facility] PRN Reason: Protocol Stop: 12/01/16 20:59 Last Admin: 10/02/16 21:25 Dose: 15 mg Senna (Senna) 8.6 mg PO HS [facility] Stop: 12/01/16 20:59 Last Admin: 10/02/16 21:24 Dose: 8.6 mg Zolpidem Tartrate (Ambien) 5 mg PO HS PRN PRN Reason: Insomnia Stop: 12/01/16 05:23 Infectious Disease Assmt/Plan - Assessment Assessment: 1. UTI. 2. MELY versus CKD. 3. AMS 2/2 metabolic encephalopathy, versus, UTI. 4. Psychosis. 5. Increased CPK. ? rhabgomyolysis. 6. HTN. 7. Anxiery disorder. - Plan Plan: Continue rocephin.
--- NOTE | 2016-10-03 01:29 | Consultation ---
REFERRING PHYSICIAN: Dr. Bobo. REASON FOR CONSULTATION: UTI, altered mental status. HISTORY OF PRESENT ILLNESS: The patient is a 71-year-old male with past medical history of psychosis, hypertension, anxiety disorder, brought in from [facility] for change in mental status and less activity for 1 day. He was found to be more confused. So, 911 was called and taken to [facility]. Otherwise, the patient is unable to give any appropriate history. There is no fever. On initial evaluation, the patient's temperature was 97.9 degrees Fahrenheit and WBC count was 11,000. Creatinine was 2.1. The patient's CPK was 483. The patient was diagnosed with UTI and Rocephin 1 g given. The patient was transferred to [facility] for insurance purposes. The patient was continued on the Rocephin and ID consult was called for further antibiotic management. PAST MEDICAL HISTORY: Includes hypertension, psychosis, dementia and anxiety disorder. ALLERGIES: NKDA. MEDICATION: As per medication reconciliation sheet. Antibiotic puente, the patient is on Rocephin. SOCIAL HISTORY: The patient lives at nursing facility. No history of smoking, alcohol or drug use. FAMILY HISTORY: Not available. REVIEW OF SYSTEMS: CONSTITUTIONAL: The patient has no fever, no chills. Has generalized weakness and fatigue. HEENT: No diplopia, no photophobia, no sore throat. RESPIRATORY: No cough, no shortness of breath. CARDIOVASCULAR: No chest pain or palpitation. GASTROINTESTINAL: No nausea, no vomiting, no diarrhea, no constipation. GENITOURINARY: No dysuria. NEUROLOGIC: No headache, no dizziness. PHYSICAL EXAMINATION: CURRENT VITAL SIGNS: Shows temperature is 98.2-degree Fahrenheit, pulse 80, respiration 18, blood pressure 123/70. GENERAL: The patient is comfortable, lying in the bed, not in acute distress. HEENT: Head is normocephalic, atraumatic. Oral cavity, dry mucosa, no thrush. EYES: No pallor, no icterus. Pupils PERRLA, EOMI. NECK: Supple, no JVD, no carotid bruit. Trachea in midline. CHEST: Bilateral breath sounds. No crackles or wheezing. HEART: S1, S2 within normal limits. Regular rhythm. No murmur, no gallop. ABDOMEN: Soft, nontender, nondistended. Bowel sounds present. BACK: The patient has no CVA tenderness. EXTREMITIES: No cyanosis, no clubbing, no edema. NEUROLOGIC: Alert, communicates well, but unable to give any meaningful history. LABORATORY DATA: Current lab shows WBC count 10,600, hemoglobin 11.9, hematocrit 35.2, platelets are 304,000, neutrophils 70%. Sodium 128, potassium 4.4, chloride 98, bicarbonate is 25, BUN is 28, creatinine 2.1, glucose is 85. Urinalysis showed wbc 2-5 and no bacteria. IMPRESSION: 1. Urinary tract infection, mild, the patient has pyuria only. 2. Acute kidney injury versus chronic kidney disease. 3. Altered mental status likely secondary to dehydration versus acute renal [id number] renal disease versus urinary tract infection. 4. Psychosis. 5. History of hypertension. 6. High CPK, may have mild rhabdomyolysis. 7. Anxiety disorder. RECOMMENDATIONS: We will continue Rocephin for the maximum 5 days. Change the Rocephin to Levaquin p.o. 250 daily to complete 5-day course, if stable. Renal consultation and psych consultation are called. Thank you, Dr. Bobo, for involving me in taking care of this patient. [facility]# [id number] [facility] CENTEREdinson
--- NOTE | 2016-10-03 02:17 | History & Physical ---
HISTORY OF PRESENT ILLNESS: ____ a well known patient for me, is a 71-year-old male patient, the patient known to have underlying bipolar disorder, the patient got very agitated ____ syndrome, ____ ambulance and the patient was taken by 911 to [facility] where the patient was found to have hyponatremia, was treated, was stable, was transferred to [facility] again for increasing agitation and change of mental status. The patient is ____ taking medication Abilify and Neurontin. The patient is known to have history of hypertension and diabetes. The patient lives in the [facility]. The patient appears to be stated age. The patient is very anxious, rambling and talking and aggressive. PHYSICAL EXAMINATION: ____: Normal. ENT: Normal. NECK: Supple ____. LUNGS: Clear. CARDIOVASCULAR: S1, S2 heard. ABDOMEN: Soft, bowel sounds are heard. CENTRAL NERVOUS SYSTEM: Grossly normal. DIAGNOSES: Severe hyponatremia, psychosis, rule out ____ history of hypertension, history of diabetes ____ psychosis and given normal saline, we will repeat the labs, ____ see the patient. I will follow the patient. JOB# [id number]
--- NOTE | 2016-10-03 06:08 | Consultation ---
ATTENDING PHYSICIAN: Dr. Rashid Bobo. AMMONIA OPERATOR: Dr. Getachew Blanton. HISTORY OF PRESENT ILLNESS: This is a 71-year-old male with past medical history of psychosis, who was transferred from [place] to [facility] for further evaluation and management. A few hours prior to admission, the patient was noted to be agitated, confused, combative with staff as well as residents at the senior living facility. He was transported to [place] [facility]. CT scan of the head revealed no acute disease along with his chest x-ray. EKG revealed normal sinus rhythm. His BUN/creatinine were 28/2.1. He was then transferred to [facility] where his BUN/creatinine were basically the same at 28/2.1, but sodium remains at 128. He had no history of nausea and vomiting as well as diarrhea. PAST MEDICAL HISTORY: 1. Chronic kidney disease. 2. Essential hypertension. 3. Anxiety. CURRENT MEDICATIONS: He is currently on acetaminophen, docusate sodium, ferrous sulphate, gabapentin, Ativan, Cozaar, olanzapine, Senna, zolpidem, ceftriaxone. ALLERGIES: No known drug allergies. SOCIAL AND FAMILY HISTORY: I was not able to obtain from the patient because he is uncooperative. REVIEW OF SYSTEMS: Again, I was not able to decipher directly from the patient. CONSTITUTIONAL: As per transfer notes, the patient's appetite seemed to have declined. He had no fever, no chills. He has generalized weakness. HEENT: No headaches, no dizziness. CARDIORESPIRATORY: No mention of chest pain, palpitations, diaphoresis, cough, nor shortness of breath. GASTROINTESTINAL: He had no nausea and vomiting, abdominal pain or cramping, hematemesis, melena, hematochezia, no diarrhea. ENDOCRINE: He has no history of diabetes, thyroid abnormalities, no dyslipidemia. MUSCULOSKELETAL: Multiple joint arthralgias. GENITOURINARY: History of chronic kidney disease. At this point, no dysuria, hematuria. No retention. HEMATOLOGIC: He has mild anemia. NEUROPSYCHIATRIC: No syncopal episode, nor seizure activity. He has acute decompensation of psychosis. PHYSICAL EXAMINATION: GENERAL: The patient is awake, but uncooperative at the present time, slightly agitated. VITAL SIGNS: His blood pressure is 118/83, pulse of 81, temperature 97.3 degrees. SKIN: Poor turgor, warm. No rash, no jaundice appreciated. HEENT: Head is normocephalic and atraumatic. Eyes; extraocular muscles are intact. Pupils are equal, round, and reactive to light and accommodates. Anicteric sclerae. [place] conjunctivae. Nose; midline nasal septum. Mouth; dry mucosa with very poor dentition. NECK: Supple, no adenopathy, no thyromegaly, no bruits. Trachea palpated in the midline. CHEST AND CARDIOVASCULAR: S1, S2. No rub, murmur, nor gallop appreciated. Point of maximal impulse at the fifth intercostal space, left midclavicular line. No abdominal or femoral bruits appreciated. LUNGS: Equal expansion. No use of accessory muscles. No supraclavicular retractions. Decreased breath sounds, but clear to auscultation without any wheeze. ABDOMEN: Flat, soft. Positive for bowel sounds. No bruits, either diastolic or systolic. RECTAL: The patient refused. GENITOURINARY: Normal appearing male genitalia. MUSCULOSKELETAL: No effusions present in his joints, but unable to assess his range of motion. EXTREMITIES: No evidence of edema, cyanosis nor clubbing. LABORATORY DATA: Did reveal sodium 128, potassium 4.4, chloride 98, bicarbonate 25, BUN 28, creatinine 2.1, glucose 85, calcium 9.5. White count 10.6, hemoglobin 11.9, hematocrit 35.2, polys 70.2%, platelets 304. IMPRESSION: 1. Acute kidney injury on chronic kidney disease. MDRD-GFR 33.2 mL per minute, stage III. The patient's chronic kidney disease is secondary to hypertensive nephrosclerosis. The patient initially developed prerenal azotemia. He has a history of being combative, uncooperative, agitated, and not able to take his meals as well as his fluids. Physical exam revealed a very dry oral mucosa, poor skin turgor. He also admitted to being thirsty. He developed dehydration and decrease in effective circulating volume, thus his prerenal azotemia may have also evolved to acute tubular injury. 2. Altered level of consciousness with agitation and being combative secondary to acute decompensation of psychosis. I doubt that his hyponatremia was the cause of his altered level of consciousness. 3. Essential hypertension. 4. Anxiety. 5. Hyponatremia, likely secondary to increased sodium loss compared to free water loss. The patient based on exam was indicative of dehydration. PLAN: 1. Continue with IV fluids. 2. Urinalysis, urine spot sodium, eosinophils, osmolality, and creatinine. 3. Renal ultrasound. 4. Urine microalbumin to creatinine ratio. 5. Follow up electrolytes, serum osmolality, and uric acid. Thank you Dr. Bobo for this consult. I will follow the patient closely with you. [facility]# [id number]
[2016-10-03 07:55] LABS: ALB/GLOB RATIO 1.1 (1.0-1.8); ALKALINE PHOSPHATASE 67 U/L (34-104); ANION GAP 12.4 (7.0-16.0); BILIRUBIN,TOTAL 0.3 mg/dL (0.3-1.0); BUN - UREA NITROGEN 27 mg/dL (7-25); BUN/CREATININE RATIO 12.9; CALCIUM SERUM 9.7 mg/dL (8.6-10.3); CARBON DIOXIDE 21.5 mEq/L (21.0-31.0); CHLORIDE 106 mEq/L (98-107); CREATININE - SERUM 2.1 mg/dL (0.7-1.3); GLUCOSE 79 mg/dL (70-105); PHOSPHOROUS 3.5 mg/dL (2.5-5.0); POTASSIUM SERUM 4.9 mEq/L (3.5-5.1); SGOT 34 U/L (13-39); SGPT/ALT 26 U/L (7-52); SODIUM SERUM 135 mEq/L (136-145)
[2016-10-03] MEDS: Ferrous Sulfate 325 MG TAB PO SCH (09:41)
[2016-10-03] MEDS: cefTRIAXone 1 GM in Sodium Chloride 0.9% 50 ML IV SCH (09:45)
--- NOTE | 2016-10-03 09:46 | General Progress Note ---
Subjective - Review of Systems Events since last encounter: no distress Objective - Results Result Diagrams: 10/02/16 06:05 10/03/16 06:20 Recent Labs: Laboratory Last Values WBC 10.6 Th/cmm (4.8-10.8) D 10/02/16 06:05 RBC 3.93 Mil/cmm (3.80-5.80) 10/02/16 06:05 Hgb 11.9 gm/dL (12.6-17.4) L 10/02/16 06:05 Hct 35.2 % (39.0-49.0) L 10/02/16 06:05 MCV 89.4 fl (80-99) 10/02/16 06:05 MCH 30.3 pg (27.0-31.0) 10/02/16 06:05 MCHC Differential 33.9 pg (28.0-36.0) 10/02/16 06:05 RDW 12.7 % (11.5-20.0) 10/02/16 06:05 Plt Count 304 Th/cmm (150-400) 10/02/16 06:05 MPV 8.5 fl 10/02/16 06:05 Neutrophils % 70.3 % (40.0-80.0) 10/02/16 06:05 Lymphocytes % 17.0 % (20.0-50.0) L 10/02/16 06:05 Monocytes % 10.2 % (2.0-10.0) H 10/02/16 06:05 Eosinophils % 1.7 % (0.0-5.0) 10/02/16 06:05 Basophils % 0.8 % (0.0-2.0) 10/02/16 06:05 Eos Smear Source URINE 10/02/16 16:15 Eos Smear Total Cells NONE SEEN (NONE SEEN) 10/02/16 16:15 Sodium 135 mEq/L (136-145) L 10/03/16 06:20 Potassium 4.9 mEq/L (3.5-5.1) 10/03/16 06:20 Chloride 106 mEq/L (98-107) 10/03/16 06:20 Carbon Dioxide 21.5 mEq/L (21.0-31.0) 10/03/16 06:20 Anion Gap 12.4 (7.0-16.0) 10/03/16 06:20 BUN 27 mg/dL (7-25) H 10/03/16 06:20 Creatinine 2.1 mg/dL (0.7-1.3) H 10/03/16 06:20 Est GFR ( Amer) TNP 10/03/16 06:20 Est GFR (Non-Af Amer) TNP 10/03/16 06:20 BUN/Creatinine Ratio 12.9 10/03/16 06:20 Glucose 79 mg/dL (70-105) 10/03/16 06:20 Uric Acid 7.0 mg/dL (4.4-7.6) 10/03/16 06:20 Calcium 9.7 mg/dL (8.6-10.3) 10/03/16 06:20 Phosphorus 3.5 mg/dL (2.5-5.0) 10/03/16 06:20 Magnesium 2.2 mg/dL (1.9-2.7) 10/03/16 06:20 Total Bilirubin 0.3 mg/dL (0.3-1.0) 10/03/16 06:20 AST 34 U/L (13-39) 10/03/16 06:20 ALT 26 U/L (7-52) 10/03/16 06:20 Alkaline Phosphatase 67 U/L (34-104) 10/03/16 06:20 Total Protein 7.6 gm/dL (6.0-8.3) 10/03/16 06:20 Albumin 3.9 gm/dL (4.2-5.5) L 10/03/16 06:20 Globulin 3.7 gm/dL 10/03/16 06:20 Albumin/Globulin Ratio 1.1 (1.0-1.8) 10/03/16 06:20 Urine Source CLEAN C 10/02/16 16:15 Urine Color YELLOW 10/02/16 16:15 Urine Clarity CLEAR (CLEAR) 10/02/16 16:15 Urine pH 6.5 10/02/16 16:15 Ur Specific [place] 1.010 (1.005-1.030) 10/02/16 16:15 Urine Protein 100 mg/dL (NEGATIVE) H 10/02/16 16:15 Urine Glucose (UA) NEGATIVE mg/dL (NEGATIVE) 10/02/16 16:15 Urine Ketones NEGATIVE mg/dL (NEGATIVE) 10/02/16 16:15 Urine Blood TRACE (NEGATIVE) 10/02/16 16:15 Urine Nitrate NEGATIVE (NEGATIVE) 10/02/16 16:15 Urine Bilirubin NEGATIVE (NEGATIVE) 10/02/16 16:15 Urine Urobilinogen 0.2 E.U./dL (0.2 - 1.0) 10/02/16 16:15 Ur Leukocyte Esterase TRACE (NEGATIVE) H 10/02/16 16:15 Urine RBC 2-5 /hpf (0-5) H 10/02/16 16:15 Urine WBC 2-5 /hpf (0-5) H 10/02/16 16:15 Ur Epithelial Cells NONE SEEN /lpf (FEW) 10/02/16 16:15 Urine Bacteria NONE SEEN /hpf (NONE SEEN) 10/02/16 16:15 Ur Random Sodium 43 mmol/L 10/02/16 16:15 Urine Creatinine 18.0 mg/dl (39.0-259.0) L 10/02/16 16:15 - Physical Exam Vitals and I&O: Vital Signs Temp 98.1 F 10/03/16 00:00 Pulse 100 10/03/16 09:42 Resp 18 10/03/16 04:00 BP 120/59 10/03/16 09:42 Pulse Ox 94 10/03/16 00:00 Intake & Output 10/02/16 10/03/16 10/03/16 18:59 06:59 18:59 Intake Total 50 1350 Balance 50 1350 Intake: Intake, IV Amount 50 1000 Sodium Chloride 0.9% 1, 1000 000 ml @ 75 mls/hr IV . [id number] [facility] Rx#:[id number] cefTRIAXone 1 gm In 50 Sodium Chloride 0.9% 50 ml @ 100 mls/hr IV Q24HR [facility] Rx#:[id number] Oral 350 Other: # Bowel Movements 1 Stool Characteristics Soft Formed Active Medications: Current Medications Acetaminophen (Tylenol) 650 mg PO Q4HR PRN PRN Reason: Pain Stop: 12/01/16 05:23 Docusate Sodium (Colace) 100 mg PO DAILY [facility] Stop: 12/01/16 08:59 Last Admin: 10/03/16 09:41 Dose: 100 mg Ferrous Sulfate (Iron) 325 mg PO DAILY [facility] Stop: 12/01/16 08:59 Last Admin: 10/03/16 09:41 Dose: 325 mg Gabapentin (Neurontin) 600 mg PO BID [facility] Stop: 12/01/16 08:59 Last Admin: 10/03/16 09:41 Dose: 600 mg Ceftriaxone Sodium 1 gm/ (Sodium Chloride) 50 mls @ 100 mls/hr IV Q24HR [facility] Stop: 12/01/16 08:59 Last Admin: 10/03/16 09:45 Dose: 100 mls/hr Sodium Chloride (Nacl 0.9%) 1,000 mls @ 75 mls/hr IV .[id number] [facility] Stop: 12/01/16 05:44 Last Admin: 10/02/16 21:39 Dose: 75 mls/hr Lorazepam (Ativan) 1 mg PO Q4HR PRN; Protocol PRN Reason: Agitation Stop: 12/01/16 05:23 Losartan Potassium (Cozaar) 50 mg PO DAILY [facility] Stop: 12/01/16 08:59 Last Admin: 10/03/16 09:42 Dose: 50 mg Olanzapine (Zyprexa Zydis) 15 mg PO HS [facility] PRN Reason: Protocol Stop: 12/01/16 20:59 Last Admin: 10/02/16 21:25 Dose: 15 mg Senna (Senna) 8.6 mg PO HS [facility] Stop: 12/01/16 20:59 Last Admin: 10/02/16 21:24 Dose: 8.6 mg Zolpidem Tartrate (Ambien) 5 mg PO HS PRN PRN Reason: Insomnia Stop: 12/01/16 05:23 Last Admin: 10/03/16 00:15 Dose: 5 mg General: No acute distress HEENT: Atraumatic Neck: Supple Cardiovascular: Regular rate Abdomen: Bowel sounds Assessment/Plan - Problem List Patient Problems: All Active Problems Acute kidney injury (Acute) N17.9 Altered mental status, unspecified (Acute) R41.82 Anxiety (Acute) F41.9 HTN (hypertension) (Acute) I10 Psychosis (Acute) F29 UTI (urinary tract infection) (Acute) high cpk (Acute) - Plan Plan: as per order sheet
[2016-10-03 11:20] LABS: % EOSINOPHILS 0.5 % (0.0-5.0); % LYMPHOCYTES 14.8 % (20.0-50.0); % MONOCYTES 9.9 % (2.0-10.0); % NEUTROPHILS 71.8 % (40.0-80.0); HEMOGLOBIN 10.7 gm/dL (12.6-17.4); MEAN CELL VOLUME 89.6 fl (80-99); MEAN CORPUSCULAR HEMOGLOBIN 30.7 pg (27.0-31.0); MEAN CORPUSCULAR HGB CONC 34.2 pg (28.0-36.0); MEAN PLATELET VOLUME 7.9 fl; NEUTROPHILE ABSOLUTE 6.6 Th/cmm (1.8-8.0); PLATELET COUNT 298 Th/cmm (150-400); RED BLOOD COUNT 3.49 Mil/cmm (3.80-5.80); RED CELL DISTRIBUTION WIDTH 12.6 % (11.5-20.0); WHITE BLOOD COUNT 9.1 Th/cmm (4.8-10.8)
--- NOTE | 2016-10-03 11:20 | Infectious Disease Prog Note ---
Infectious Disease Subjective - Review of Systems Service Date: 10/03/16 Subjective: No new change. Infectious Disease Objective - Results Result Diagrams: 10/02/16 06:05 10/03/16 06:20 Recent Labs: Laboratory Last Values WBC 10.6 Th/cmm (4.8-10.8) D 10/02/16 06:05 RBC 3.93 Mil/cmm (3.80-5.80) 10/02/16 06:05 Hgb 11.9 gm/dL (12.6-17.4) L 10/02/16 06:05 Hct 35.2 % (39.0-49.0) L 10/02/16 06:05 MCV 89.4 fl (80-99) 10/02/16 06:05 MCH 30.3 pg (27.0-31.0) 10/02/16 06:05 MCHC Differential 33.9 pg (28.0-36.0) 10/02/16 06:05 RDW 12.7 % (11.5-20.0) 10/02/16 06:05 Plt Count 304 Th/cmm (150-400) 10/02/16 06:05 MPV 8.5 fl 10/02/16 06:05 Neutrophils % 70.3 % (40.0-80.0) 10/02/16 06:05 Lymphocytes % 17.0 % (20.0-50.0) L 10/02/16 06:05 Monocytes % 10.2 % (2.0-10.0) H 10/02/16 06:05 Eosinophils % 1.7 % (0.0-5.0) 10/02/16 06:05 Basophils % 0.8 % (0.0-2.0) 10/02/16 06:05 Eos Smear Source URINE 10/02/16 16:15 Eos Smear Total Cells NONE SEEN (NONE SEEN) 10/02/16 16:15 Sodium 135 mEq/L (136-145) L 10/03/16 06:20 Potassium 4.9 mEq/L (3.5-5.1) 10/03/16 06:20 Chloride 106 mEq/L (98-107) 10/03/16 06:20 Carbon Dioxide 21.5 mEq/L (21.0-31.0) 10/03/16 06:20 Anion Gap 12.4 (7.0-16.0) 10/03/16 06:20 BUN 27 mg/dL (7-25) H 10/03/16 06:20 Creatinine 2.1 mg/dL (0.7-1.3) H 10/03/16 06:20 Est GFR ( Amer) TNP 10/03/16 06:20 Est GFR (Non-Af Amer) TNP 10/03/16 06:20 BUN/Creatinine Ratio 12.9 10/03/16 06:20 Glucose 79 mg/dL (70-105) 10/03/16 06:20 Uric Acid 7.0 mg/dL (4.4-7.6) 10/03/16 06:20 Calcium 9.7 mg/dL (8.6-10.3) 10/03/16 06:20 Phosphorus 3.5 mg/dL (2.5-5.0) 10/03/16 06:20 Magnesium 2.2 mg/dL (1.9-2.7) 10/03/16 06:20 Total Bilirubin 0.3 mg/dL (0.3-1.0) 10/03/16 06:20 AST 34 U/L (13-39) 10/03/16 06:20 ALT 26 U/L (7-52) 10/03/16 06:20 Alkaline Phosphatase 67 U/L (34-104) 10/03/16 06:20 Total Protein 7.6 gm/dL (6.0-8.3) 10/03/16 06:20 Albumin 3.9 gm/dL (4.2-5.5) L 10/03/16 06:20 Globulin 3.7 gm/dL 10/03/16 06:20 Albumin/Globulin Ratio 1.1 (1.0-1.8) 10/03/16 06:20 Urine Source CLEAN C 10/02/16 16:15 Urine Color YELLOW 10/02/16 16:15 Urine Clarity CLEAR (CLEAR) 10/02/16 16:15 Urine pH 6.5 10/02/16 16:15 Ur Specific [place] 1.010 (1.005-1.030) 10/02/16 16:15 Urine Protein 100 mg/dL (NEGATIVE) H 10/02/16 16:15 Urine Glucose (UA) NEGATIVE mg/dL (NEGATIVE) 10/02/16 16:15 Urine Ketones NEGATIVE mg/dL (NEGATIVE) 10/02/16 16:15 Urine Blood TRACE (NEGATIVE) 10/02/16 16:15 Urine Nitrate NEGATIVE (NEGATIVE) 10/02/16 16:15 Urine Bilirubin NEGATIVE (NEGATIVE) 10/02/16 16:15 Urine Urobilinogen 0.2 E.U./dL (0.2 - 1.0) 10/02/16 16:15 Ur Leukocyte Esterase TRACE (NEGATIVE) H 10/02/16 16:15 Urine RBC 2-5 /hpf (0-5) H 10/02/16 16:15 Urine WBC 2-5 /hpf (0-5) H 10/02/16 16:15 Ur Epithelial Cells NONE SEEN /lpf (FEW) 10/02/16 16:15 Urine Bacteria NONE SEEN /hpf (NONE SEEN) 10/02/16 16:15 Ur Random Sodium 43 mmol/L 10/02/16 16:15 Urine Creatinine 18.0 mg/dl (39.0-259.0) L 10/02/16 16:15 - Physical Exam Vitals and I&O: Vital Signs Temp 98.1 F 10/03/16 00:00 Pulse 100 10/03/16 09:42 Resp 18 10/03/16 04:00 BP 120/59 10/03/16 09:42 Pulse Ox 94 10/03/16 00:00 Intake & Output 10/02/16 10/03/16 10/03/16 18:59 06:59 18:59 Intake Total 50 1350 Balance 50 1350 Intake: Intake, IV Amount 50 1000 Sodium Chloride 0.9% 1, 1000 000 ml @ 75 mls/hr IV . [id number] [facility] Rx#:[id number] cefTRIAXone 1 gm In 50 Sodium Chloride 0.9% 50 ml @ 100 mls/hr IV Q24HR [facility] Rx#:[id number] Oral 350 Other: # Bowel Movements 1 Stool Characteristics Soft Formed Active Medications: Current Medications Acetaminophen (Tylenol) 650 mg PO Q4HR PRN PRN Reason: Pain Stop: 12/01/16 05:23 Docusate Sodium (Colace) 100 mg PO DAILY [facility] Stop: 12/01/16 08:59 Last Admin: 10/03/16 09:41 Dose: 100 mg Ferrous Sulfate (Iron) 325 mg PO DAILY [facility] Stop: 12/01/16 08:59 Last Admin: 10/03/16 09:41 Dose: 325 mg Gabapentin (Neurontin) 600 mg PO BID [facility] Stop: 12/01/16 08:59 Last Admin: 10/03/16 09:41 Dose: 600 mg Ceftriaxone Sodium 1 gm/ (Sodium Chloride) 50 mls @ 100 mls/hr IV Q24HR [facility] Stop: 12/01/16 08:59 Last Admin: 10/03/16 09:45 Dose: 100 mls/hr Sodium Chloride (Nacl 0.9%) 1,000 mls @ 75 mls/hr IV .[id number] [facility] Stop: 12/01/16 05:44 Last Admin: 10/02/16 21:39 Dose: 75 mls/hr Lorazepam (Ativan) 1 mg PO Q4HR PRN; Protocol PRN Reason: Agitation Stop: 12/01/16 05:23 Losartan Potassium (Cozaar) 50 mg PO DAILY [facility] Stop: 12/01/16 08:59 Last Admin: 10/03/16 09:42 Dose: 50 mg Olanzapine (Zyprexa Zydis) 15 mg PO HS [facility] PRN Reason: Protocol Stop: 12/01/16 20:59 Last Admin: 10/02/16 21:25 Dose: 15 mg Senna (Senna) 8.6 mg PO HS [facility] Stop: 12/01/16 20:59 Last Admin: 10/02/16 21:24 Dose: 8.6 mg Zolpidem Tartrate (Ambien) 5 mg PO HS PRN PRN Reason: Insomnia Stop: 12/01/16 05:23 Last Admin: 10/03/16 00:15 Dose: 5 mg General: no acute distress, well developed, well nourished HEENT: atraumatic, normocephalic, PERRLA, EOMI Neck: supple Cardiovascular: S1S2, regular Lungs: clear to auscultation bilaterally, clear to percussion Abdomen: soft, no tender, no distended Extremities: no cyanosis, no clubbing, no edema Neurological: awake, alert Skin: intact Infectious Disease Assmt/Plan - Problem List Patient Problems: All Active Problems Acute kidney injury (Acute) N17.9 Altered mental status, unspecified (Acute) R41.82 Anxiety (Acute) F41.9 HTN (hypertension) (Acute) I10 Psychosis (Acute) F29 UTI (urinary tract infection) (Acute) high cpk (Acute) - Assessment Assessment: 1. UTI. 2. MELY versus CKD. 3. AMS 2/2 metabolic encephalopathy, versus, UTI. 4. Psychosis. 5. Increased CPK. ? rhabgomyolysis. 6. HTN. 7. Anxiery disorder. - Plan Plan: Continue rocephin.
[2016-10-03 11:21] LABS: HEMATOCRIT 31.3 % (39.0-49.0)
--- NOTE | 2016-10-03 13:31 | Diagnostic Imaging Report ---
Renal ultrasound HISTORY: Renal failure. COMPARISON: None Technique: Sonography of the kidneys and urinary bladder was performed in multiple planes. FINDINGS: Exam is limited as patient was combative. The right kidney measures 10.8 x 5.2 cm. No evidence of focal lesions or hydronephrosis. The Left kidney measurements were not able to be obtained. Multiple sonolucent lesion of the left kidney are noted largest along measuring 3.5 cm. No definite hydronephrosis. There is Borderline prominence of the urinary bladder wall. IMPRESSION: Limited exam as patient was combative during the procedure including limited evaluation of the left kidney as left renal measurements were not able to be obtained. Multiple left renal cysts the largest measuring 3.5 cm. One of these cysts may contain a septation. As such, short-term follow-up ultrasound or CT surveillance is suggested. No evidence of hydronephrosis. Borderline prominent urinary bladder wall, nonspecific.
--- NOTE | 2016-10-03 13:47 | Admit Criteria Form ---
Admit Criteria Forms - Admit Criteria Diagnosis: URINARY COMPLICATIONS Clinical Indications for Inpatient Care (Place 'X' for any and all applicable criteria): Ongoing inpatient care may be indicated for urinary complications with ANY ONE of the following: [X]I. Urinary tract infection requiring inpatient care as indicated by ANY ONE of the following(8)(19)(20): [ ]a) Severe symptoms (eg, high fever, severe pain) [ ]b) Vomiting or dehydration requiring ongoing inpatient care [X]c) IV antibiotic needs that cannot be managed at lower level of care [ ]d) Hemodynamic instability [ ]e) Obstruction of collecting system by stone or tumor [ ]II. Urinary retention requiring drainage or surgery (3)(4)(5)(17)(18) [X]III. Renal failure (Use Renal Failure Criteria for further information.) [ ]IV. Oliguria(30) [ ]V. Post obstructive diuresis requiring close monitoring of urine output and intravenous compensation for excessive fluid losses(33) Extended stay beyond goal length of stay for primary condition may be needed until ALL of the following are present(3)(4)(5)(8): [ ]a) Renal function (creatinine) at baseline, or daily decreases in creatinine consistent with renal function return [ ]b) Voiding adequately or with urinary catheter or percutaneous suprapubic tube and management regimen in place that is performable at lower level of care. [ ]c) Urine output adequate [ ]d) Fever absent or resolving [ ]e) Infection absent or treatable at next level of care The original [facility] content created by [employer] has been revised. The portions of the content which have been revised are identified through the use of italic text or in bold, and [facility] has neither reviewed nor approved the modified material. All other unmodified content is copyright [facility] Please see references footnoted in the original [facility] edition 2016 Admit Criteria Met?: Yes
[2016-10-03 15:12] LABS: MICROALBUMIN RANDOM RUINE 326.7 ug/mL (Not Estab.)
[2016-10-03] MEDS: Sodium Chloride 0.9% 1,000 ML IV SCH (20:11)
[2016-10-03] MEDS: OLANZapine 5 mg Oral Disintegrating Tab PO SCH (21:14)
[2016-10-04 07:21] LABS: ANION GAP 7.6 (7.0-16.0); BUN - UREA NITROGEN 29 mg/dL (7-25); BUN/CREATININE RATIO 12.6; CALCIUM SERUM 9.3 mg/dL (8.6-10.3); CHLORIDE 113 mEq/L (98-107); CREATININE - SERUM 2.3 mg/dL (0.7-1.3); GLUCOSE 77 mg/dL (70-105); POTASSIUM SERUM 4.6 mEq/L (3.5-5.1); SODIUM SERUM 141 mEq/L (136-145)
--- NOTE | 2016-10-04 09:08 | General Progress Note ---
Subjective - Review of Systems Events since last encounter: patient awake no distress Objective - Results Result Diagrams: 10/03/16 06:20 10/04/16 06:15 Recent Labs: Laboratory Last Values WBC 9.1 Th/cmm (4.8-10.8) 10/03/16 06:20 RBC 3.49 Mil/cmm (3.80-5.80) L 10/03/16 06:20 Hgb 10.7 gm/dL (12.6-17.4) L 10/03/16 06:20 Hct 31.3 % (39.0-49.0) L D 10/03/16 06:20 MCV 89.6 fl (80-99) 10/03/16 06:20 MCH 30.7 pg (27.0-31.0) 10/03/16 06:20 MCHC Differential 34.2 pg (28.0-36.0) 10/03/16 06:20 RDW 12.6 % (11.5-20.0) 10/03/16 06:20 Plt Count 298 Th/cmm (150-400) 10/03/16 06:20 MPV 7.9 fl 10/03/16 06:20 Neutrophils % 71.8 % (40.0-80.0) 10/03/16 06:20 Lymphocytes % 14.8 % (20.0-50.0) L 10/03/16 06:20 Monocytes % 9.9 % (2.0-10.0) 10/03/16 06:20 Eosinophils % 0.5 % (0.0-5.0) 10/03/16 06:20 Basophils % 3.0 % (0.0-2.0) H 10/03/16 06:20 Eos Smear Source URINE 10/02/16 16:15 Eos Smear Total Cells NONE SEEN (NONE SEEN) 10/02/16 16:15 Sodium 141 mEq/L (136-145) 10/04/16 06:15 Potassium 4.6 mEq/L (3.5-5.1) 10/04/16 06:15 Chloride 113 mEq/L (98-107) H 10/04/16 06:15 Carbon Dioxide 25.0 mEq/L (21.0-31.0) 10/04/16 06:15 Anion Gap 7.6 (7.0-16.0) 10/04/16 06:15 BUN 29 mg/dL (7-25) H 10/04/16 06:15 Creatinine 2.3 mg/dL (0.7-1.3) H 10/04/16 06:15 Est GFR ( Amer) TNP 10/04/16 06:15 Est GFR (Non-Af Amer) TNP 10/04/16 06:15 BUN/Creatinine Ratio 12.6 10/04/16 06:15 Glucose 77 mg/dL (70-105) 10/04/16 06:15 Uric Acid 7.0 mg/dL (4.4-7.6) 10/03/16 06:20 Calcium 9.3 mg/dL (8.6-10.3) 10/04/16 06:15 Phosphorus 3.5 mg/dL (2.5-5.0) 10/03/16 06:20 Magnesium 2.2 mg/dL (1.9-2.7) 10/03/16 06:20 Total Bilirubin 0.3 mg/dL (0.3-1.0) 10/03/16 06:20 AST 34 U/L (13-39) 10/03/16 06:20 ALT 26 U/L (7-52) 10/03/16 06:20 Alkaline Phosphatase 67 U/L (34-104) 10/03/16 06:20 Total Protein 7.6 gm/dL (6.0-8.3) 10/03/16 06:20 Albumin 3.9 gm/dL (4.2-5.5) L 10/03/16 06:20 Globulin 3.7 gm/dL 10/03/16 06:20 Albumin/Globulin Ratio 1.1 (1.0-1.8) 10/03/16 06:20 Urine Source CLEAN C 10/02/16 16:15 Urine Color YELLOW 10/02/16 16:15 Urine Clarity CLEAR (CLEAR) 10/02/16 16:15 Urine pH 6.5 10/02/16 16:15 Ur Specific [place] 1.010 (1.005-1.030) 10/02/16 16:15 Urine Protein 100 mg/dL (NEGATIVE) H 10/02/16 16:15 Urine Glucose (UA) NEGATIVE mg/dL (NEGATIVE) 10/02/16 16:15 Urine Ketones NEGATIVE mg/dL (NEGATIVE) 10/02/16 16:15 Urine Blood TRACE (NEGATIVE) 10/02/16 16:15 Urine Nitrate NEGATIVE (NEGATIVE) 10/02/16 16:15 Urine Bilirubin NEGATIVE (NEGATIVE) 10/02/16 16:15 Urine Urobilinogen 0.2 E.U./dL (0.2 - 1.0) 10/02/16 16:15 Ur Leukocyte Esterase TRACE (NEGATIVE) H 10/02/16 16:15 Urine RBC 2-5 /hpf (0-5) H 10/02/16 16:15 Urine WBC 2-5 /hpf (0-5) H 10/02/16 16:15 Ur Epithelial Cells NONE SEEN /lpf (FEW) 10/02/16 16:15 Urine Bacteria NONE SEEN /hpf (NONE SEEN) 10/02/16 16:15 Ur Random Sodium 43 mmol/L 10/02/16 16:15 Urine Creatinine 12.9 mg/dl (Not Estab.) 10/02/16 16:15 Urine Microalbumin 326.7 ug/mL (Not Estab.) 10/02/16 16:15 Microalb/Creat Ratio 2532.6 mg/g creat (0.0-30.0) H 10/02/16 16:15 - Physical Exam Vitals and I&O: Vital Signs Temp 97.5 F 10/04/16 06:00 Pulse 86 10/04/16 06:00 Resp 18 10/04/16 06:00 BP 114/64 10/04/16 06:00 Pulse Ox 96 10/04/16 04:00 Intake & Output 10/03/16 10/04/16 10/04/16 18:59 06:59 18:59 Intake Total 1050 240 Balance 1050 240 Intake: Intake, IV Amount 1050 Sodium Chloride 0.9% 1, 1000 000 ml @ 75 mls/hr IV . [id number] [facility] Rx#:[id number] cefTRIAXone 1 gm In 50 Sodium Chloride 0.9% 50 ml @ 100 mls/hr IV Q24HR [facility] Rx#:[id number] Oral 240 Other: # Voids 2 # Bowel Movements 0 Active Medications: Current Medications Acetaminophen (Tylenol) 650 mg PO Q4HR PRN PRN Reason: Pain Stop: 12/01/16 05:23 Last Admin: 10/03/16 21:14 Dose: 650 mg Docusate Sodium (Colace) 100 mg PO DAILY [facility] Stop: 12/01/16 08:59 Last Admin: 10/03/16 09:41 Dose: 100 mg Ferrous Sulfate (Iron) 325 mg PO DAILY [facility] Stop: 12/01/16 08:59 Last Admin: 10/03/16 09:41 Dose: 325 mg Gabapentin (Neurontin) 600 mg PO BID [facility] Stop: 12/01/16 08:59 Last Admin: 10/03/16 16:20 Dose: 600 mg Ceftriaxone Sodium 1 gm/ (Sodium Chloride) 50 mls @ 100 mls/hr IV Q24HR [facility] Stop: 12/01/16 08:59 Last Infusion: 10/03/16 18:35 Dose: Infused Sodium Chloride (Nacl 0.9%) 1,000 mls @ 75 mls/hr IV .[id number] [facility] Stop: 12/01/16 05:44 Last Admin: 10/03/16 20:11 Dose: 75 mls/hr Ibuprofen (Motrin) 400 mg PO Q6H PRN PRN Reason: Pain or Fever >101 Stop: 12/02/16 17:46 Last Admin: 10/03/16 18:08 Dose: 400 mg Lorazepam (Ativan) 1 mg PO Q4HR PRN; Protocol PRN Reason: Agitation Stop: 12/01/16 05:23 Last Admin: 10/03/16 21:14 Dose: 1 mg Losartan Potassium (Cozaar) 50 mg PO DAILY [facility] Stop: 12/01/16 08:59 Last Admin: 10/03/16 09:42 Dose: 50 mg Olanzapine (Zyprexa Zydis) 15 mg PO HS [facility] PRN Reason: Protocol Stop: 12/01/16 20:59 Last Admin: 10/03/16 21:14 Dose: 15 mg Senna (Senna) 8.6 mg PO HS [facility] Stop: 12/01/16 20:59 Last Admin: 10/03/16 21:14 Dose: 8.6 mg Zolpidem Tartrate (Ambien) 5 mg PO HS PRN PRN Reason: Insomnia Stop: 12/01/16 05:23 Last Admin: 10/03/16 21:15 Dose: 5 mg General: No acute distress HEENT: Atraumatic Cardiovascular: Regular rate Lungs: Clear to auscultation Assessment/Plan - Problem List Patient Problems: All Active Problems Acute kidney injury (Acute) N17.9 Altered mental status, unspecified (Acute) R41.82 Anxiety (Acute) F41.9 HTN (hypertension) (Acute) I10 Psychosis (Acute) F29 UTI (urinary tract infection) (Acute) high cpk (Acute) - Plan Plan: as per order sheet
[2016-10-04] MEDS: cefTRIAXone 1 GM in Sodium Chloride 0.9% 50 ML IV SCH (09:54)
[2016-10-04] MEDS: Ferrous Sulfate 325 MG TAB PO SCH (09:58)
[2016-10-04] MEDS: Sodium Chloride 0.9% 1,000 ML IV SCH (10:05)
--- NOTE | 2016-10-04 13:50 | General Progress Note ---
Subjective - Review of Systems Service Date: 10/04/16 Subjective: alert, comfortable Objective - Results Result Diagrams: 10/03/16 06:20 10/04/16 06:15 Recent Labs: Laboratory Last Values WBC 9.1 Th/cmm (4.8-10.8) 10/03/16 06:20 RBC 3.49 Mil/cmm (3.80-5.80) L 10/03/16 06:20 Hgb 10.7 gm/dL (12.6-17.4) L 10/03/16 06:20 Hct 31.3 % (39.0-49.0) L D 10/03/16 06:20 MCV 89.6 fl (80-99) 10/03/16 06:20 MCH 30.7 pg (27.0-31.0) 10/03/16 06:20 MCHC Differential 34.2 pg (28.0-36.0) 10/03/16 06:20 RDW 12.6 % (11.5-20.0) 10/03/16 06:20 Plt Count 298 Th/cmm (150-400) 10/03/16 06:20 MPV 7.9 fl 10/03/16 06:20 Neutrophils % 71.8 % (40.0-80.0) 10/03/16 06:20 Lymphocytes % 14.8 % (20.0-50.0) L 10/03/16 06:20 Monocytes % 9.9 % (2.0-10.0) 10/03/16 06:20 Eosinophils % 0.5 % (0.0-5.0) 10/03/16 06:20 Basophils % 3.0 % (0.0-2.0) H 10/03/16 06:20 Eos Smear Source URINE 10/02/16 16:15 Eos Smear Total Cells NONE SEEN (NONE SEEN) 10/02/16 16:15 Sodium 141 mEq/L (136-145) 10/04/16 06:15 Potassium 4.6 mEq/L (3.5-5.1) 10/04/16 06:15 Chloride 113 mEq/L (98-107) H 10/04/16 06:15 Carbon Dioxide 25.0 mEq/L (21.0-31.0) 10/04/16 06:15 Anion Gap 7.6 (7.0-16.0) 10/04/16 06:15 BUN 29 mg/dL (7-25) H 10/04/16 06:15 Creatinine 2.3 mg/dL (0.7-1.3) H 10/04/16 06:15 Est GFR ( Amer) TNP 10/04/16 06:15 Est GFR (Non-Af Amer) TNP 10/04/16 06:15 BUN/Creatinine Ratio 12.6 10/04/16 06:15 Glucose 77 mg/dL (70-105) 10/04/16 06:15 Uric Acid 7.0 mg/dL (4.4-7.6) 10/03/16 06:20 Calcium 9.3 mg/dL (8.6-10.3) 10/04/16 06:15 Phosphorus 3.5 mg/dL (2.5-5.0) 10/03/16 06:20 Magnesium 2.2 mg/dL (1.9-2.7) 10/03/16 06:20 Total Bilirubin 0.3 mg/dL (0.3-1.0) 10/03/16 06:20 AST 34 U/L (13-39) 10/03/16 06:20 ALT 26 U/L (7-52) 10/03/16 06:20 Alkaline Phosphatase 67 U/L (34-104) 10/03/16 06:20 Total Protein 7.6 gm/dL (6.0-8.3) 10/03/16 06:20 Albumin 3.9 gm/dL (4.2-5.5) L 10/03/16 06:20 Globulin 3.7 gm/dL 10/03/16 06:20 Albumin/Globulin Ratio 1.1 (1.0-1.8) 10/03/16 06:20 Urine Source CLEAN C 10/02/16 16:15 Urine Color YELLOW 10/02/16 16:15 Urine Clarity CLEAR (CLEAR) 10/02/16 16:15 Urine pH 6.5 10/02/16 16:15 Ur Specific [place] 1.010 (1.005-1.030) 10/02/16 16:15 Urine Protein 100 mg/dL (NEGATIVE) H 10/02/16 16:15 Urine Glucose (UA) NEGATIVE mg/dL (NEGATIVE) 10/02/16 16:15 Urine Ketones NEGATIVE mg/dL (NEGATIVE) 10/02/16 16:15 Urine Blood TRACE (NEGATIVE) 10/02/16 16:15 Urine Nitrate NEGATIVE (NEGATIVE) 10/02/16 16:15 Urine Bilirubin NEGATIVE (NEGATIVE) 10/02/16 16:15 Urine Urobilinogen 0.2 E.U./dL (0.2 - 1.0) 10/02/16 16:15 Ur Leukocyte Esterase TRACE (NEGATIVE) H 10/02/16 16:15 Urine RBC 2-5 /hpf (0-5) H 10/02/16 16:15 Urine WBC 2-5 /hpf (0-5) H 10/02/16 16:15 Ur Epithelial Cells NONE SEEN /lpf (FEW) 10/02/16 16:15 Urine Bacteria NONE SEEN /hpf (NONE SEEN) 10/02/16 16:15 Ur Random Sodium 43 mmol/L 10/02/16 16:15 Urine Creatinine 12.9 mg/dl (Not Estab.) 10/02/16 16:15 Urine Microalbumin 326.7 ug/mL (Not Estab.) 10/02/16 16:15 Microalb/Creat Ratio 2532.6 mg/g creat (0.0-30.0) H 10/02/16 16:15 - Physical Exam Vitals and I&O: Vital Signs Temp 97.5 F 10/04/16 06:00 Pulse 79 10/04/16 09:58 Resp 18 10/04/16 06:00 BP 127/82 10/04/16 09:58 Pulse Ox 96 10/04/16 04:00 Intake & Output 10/03/16 10/04/16 10/04/16 18:59 06:59 18:59 Intake Total 1989 066 8101 Balance 1370 498 9150 Intake: Intake, IV Amount 1050 1000 Sodium Chloride 0.9% 1, 1000 1000 000 ml @ 75 mls/hr IV . [id number] [facility] Rx#:[id number] cefTRIAXone 1 gm In 50 Sodium Chloride 0.9% 50 ml @ 100 mls/hr IV Q24HR [facility] Rx#:[id number] Oral 240 Other: # Voids 2 # Bowel Movements 0 Active Medications: Current Medications Acetaminophen (Tylenol) 650 mg PO Q4HR PRN PRN Reason: Pain Stop: 12/01/16 05:23 Last Admin: 10/03/16 21:14 Dose: 650 mg Docusate Sodium (Colace) 100 mg PO DAILY [facility] Stop: 12/01/16 08:59 Last Admin: 10/04/16 09:58 Dose: 100 mg Ferrous Sulfate (Iron) 325 mg PO DAILY [facility] Stop: 12/01/16 08:59 Last Admin: 10/04/16 09:58 Dose: 325 mg Gabapentin (Neurontin) 600 mg PO BID [facility] Stop: 12/01/16 08:59 Last Admin: 10/04/16 09:59 Dose: 600 mg Ceftriaxone Sodium 1 gm/ (Sodium Chloride) 50 mls @ 100 mls/hr IV Q24HR [facility] Stop: 12/01/16 08:59 Last Admin: 10/04/16 09:54 Dose: 100 mls/hr Sodium Chloride (Nacl 0.9%) 1,000 mls @ 75 mls/hr IV .[id number] [facility] Stop: 12/01/16 05:44 Last Admin: 10/04/16 10:05 Dose: 75 mls/hr Ibuprofen (Motrin) 400 mg PO Q6H PRN PRN Reason: Pain or Fever >101 Stop: 12/02/16 17:46 Last Admin: 10/03/16 18:08 Dose: 400 mg Lorazepam (Ativan) 1 mg PO Q4HR PRN; Protocol PRN Reason: Agitation Stop: 12/01/16 05:23 Last Admin: 10/03/16 21:14 Dose: 1 mg Losartan Potassium (Cozaar) 50 mg PO DAILY [facility] Stop: 12/01/16 08:59 Last Admin: 10/04/16 09:58 Dose: 50 mg Olanzapine (Zyprexa Zydis) 15 mg PO HS [facility] PRN Reason: Protocol Stop: 12/01/16 20:59 Last Admin: 10/03/16 21:14 Dose: 15 mg Senna (Senna) 8.6 mg PO HS [facility] Stop: 12/01/16 20:59 Last Admin: 10/03/16 21:14 Dose: 8.6 mg Zolpidem Tartrate (Ambien) 5 mg PO HS PRN PRN Reason: Insomnia Stop: 12/01/16 05:23 Last Admin: 10/03/16 21:15 Dose: 5 mg General: Alert, Cooperative HEENT: Atraumatic, Mucous membr. moist/pink Neck: Supple, +2 carotid pulse wo bruit Cardiovascular: Regular rate, Normal S1, Normal S2 Lungs: Clear to auscultation Abdomen: Bowel sounds, Soft Extremities: no Edema Neurological: Sensation intact Skin: no Rash Assessment/Plan - Problem List Patient Problems: All Active Problems Acute kidney injury (Acute) N17.9 Altered mental status, unspecified (Acute) R41.82 Anxiety (Acute) F41.9 HTN (hypertension) (Acute) I10 Psychosis (Acute) F29 UTI (urinary tract infection) (Acute) high cpk (Acute) - Assessment Assessment: marilynn on ckd s/p ALOC Ess HTN w/ CKD anxiety dis hyponatremia improving - Plan Plan: Lab - Result Diagrams 10/03/16 06:20 10/04/16 06:15 Current Medications Acetaminophen (Tylenol) 650 mg PO Q4HR PRN PRN Reason: Pain Stop: 12/01/16 05:23 Last Admin: 10/03/16 21:14 Dose: 650 mg Docusate Sodium (Colace) 100 mg PO DAILY CHELI Stop: 12/01/16 08:59 Last Admin: 10/04/16 09:58 Dose: 100 mg Ferrous Sulfate (Iron) 325 mg PO DAILY CHELI Stop: 12/01/16 08:59 Last Admin: 10/04/16 09:58 Dose: 325 mg Gabapentin (Neurontin) 600 mg PO BID CHELI Stop: 12/01/16 08:59 Last Admin: 10/04/16 09:59 Dose: 600 mg Ceftriaxone Sodium 1 gm/ (Sodium Chloride) 50 mls @ 100 mls/hr IV Q24HR CHELI Stop: 12/01/16 08:59 Last Admin: 10/04/16 09:54 Dose: 100 mls/hr Sodium Chloride (Nacl 0.9%) 1,000 mls @ 75 mls/hr IV .[id number] CHELI Stop: 12/01/16 05:44 Last Admin: 10/04/16 10:05 Dose: 75 mls/hr Ibuprofen (Motrin) 400 mg PO Q6H PRN PRN Reason: Pain or Fever >101 Stop: 12/02/16 17:46 Last Admin: 10/03/16 18:08 Dose: 400 mg Lorazepam (Ativan) 1 mg PO Q4HR PRN; Protocol PRN Reason: Agitation Stop: 12/01/16 05:23 Last Admin: 10/03/16 21:14 Dose: 1 mg Losartan Potassium (Cozaar) 50 mg PO DAILY CHELI Stop: 12/01/16 08:59 Last Admin: 10/04/16 09:58 Dose: 50 mg Olanzapine (Zyprexa Zydis) 15 mg PO HS CHELI PRN Reason: Protocol Stop: 12/01/16 20:59 Last Admin: 10/03/16 21:14 Dose: 15 mg Senna (Senna) 8.6 mg PO HS CHELI Stop: 12/01/16 20:59 Last Admin: 10/03/16 21:14 Dose: 8.6 mg Zolpidem Tartrate (Ambien) 5 mg PO HS PRN PRN Reason: Insomnia Stop: 12/01/16 05:23 Last Admin: 10/03/16 21:15 Dose: 5 mg cr. stable @ 2.3 continue ivf NS @ 75 ml/hr FE Na 3.9% suggestive of intrinsic renal ds microalb/cr ratio 2532 mg/gm
--- NOTE | 2016-10-04 15:43 | Infectious Disease Prog Note ---
Infectious Disease Subjective - Review of Systems Service Date: 10/04/16 Subjective: No new change. Infectious Disease Objective - Results Result Diagrams: 10/03/16 06:20 10/04/16 06:15 Recent Labs: Laboratory Last Values WBC 9.1 Th/cmm (4.8-10.8) 10/03/16 06:20 RBC 3.49 Mil/cmm (3.80-5.80) L 10/03/16 06:20 Hgb 10.7 gm/dL (12.6-17.4) L 10/03/16 06:20 Hct 31.3 % (39.0-49.0) L D 10/03/16 06:20 MCV 89.6 fl (80-99) 10/03/16 06:20 MCH 30.7 pg (27.0-31.0) 10/03/16 06:20 MCHC Differential 34.2 pg (28.0-36.0) 10/03/16 06:20 RDW 12.6 % (11.5-20.0) 10/03/16 06:20 Plt Count 298 Th/cmm (150-400) 10/03/16 06:20 MPV 7.9 fl 10/03/16 06:20 Neutrophils % 71.8 % (40.0-80.0) 10/03/16 06:20 Lymphocytes % 14.8 % (20.0-50.0) L 10/03/16 06:20 Monocytes % 9.9 % (2.0-10.0) 10/03/16 06:20 Eosinophils % 0.5 % (0.0-5.0) 10/03/16 06:20 Basophils % 3.0 % (0.0-2.0) H 10/03/16 06:20 Eos Smear Source URINE 10/02/16 16:15 Eos Smear Total Cells NONE SEEN (NONE SEEN) 10/02/16 16:15 Sodium 141 mEq/L (136-145) 10/04/16 06:15 Potassium 4.6 mEq/L (3.5-5.1) 10/04/16 06:15 Chloride 113 mEq/L (98-107) H 10/04/16 06:15 Carbon Dioxide 25.0 mEq/L (21.0-31.0) 10/04/16 06:15 Anion Gap 7.6 (7.0-16.0) 10/04/16 06:15 BUN 29 mg/dL (7-25) H 10/04/16 06:15 Creatinine 2.3 mg/dL (0.7-1.3) H 10/04/16 06:15 Est GFR ( Amer) TNP 10/04/16 06:15 Est GFR (Non-Af Amer) TNP 10/04/16 06:15 BUN/Creatinine Ratio 12.6 10/04/16 06:15 Glucose 77 mg/dL (70-105) 10/04/16 06:15 Uric Acid 7.0 mg/dL (4.4-7.6) 10/03/16 06:20 Calcium 9.3 mg/dL (8.6-10.3) 10/04/16 06:15 Phosphorus 3.5 mg/dL (2.5-5.0) 10/03/16 06:20 Magnesium 2.2 mg/dL (1.9-2.7) 10/03/16 06:20 Total Bilirubin 0.3 mg/dL (0.3-1.0) 10/03/16 06:20 AST 34 U/L (13-39) 10/03/16 06:20 ALT 26 U/L (7-52) 10/03/16 06:20 Alkaline Phosphatase 67 U/L (34-104) 10/03/16 06:20 Total Protein 7.6 gm/dL (6.0-8.3) 10/03/16 06:20 Albumin 3.9 gm/dL (4.2-5.5) L 10/03/16 06:20 Globulin 3.7 gm/dL 10/03/16 06:20 Albumin/Globulin Ratio 1.1 (1.0-1.8) 10/03/16 06:20 Urine Source CLEAN C 10/02/16 16:15 Urine Color YELLOW 10/02/16 16:15 Urine Clarity CLEAR (CLEAR) 10/02/16 16:15 Urine pH 6.5 10/02/16 16:15 Ur Specific [place] 1.010 (1.005-1.030) 10/02/16 16:15 Urine Protein 100 mg/dL (NEGATIVE) H 10/02/16 16:15 Urine Glucose (UA) NEGATIVE mg/dL (NEGATIVE) 10/02/16 16:15 Urine Ketones NEGATIVE mg/dL (NEGATIVE) 10/02/16 16:15 Urine Blood TRACE (NEGATIVE) 10/02/16 16:15 Urine Nitrate NEGATIVE (NEGATIVE) 10/02/16 16:15 Urine Bilirubin NEGATIVE (NEGATIVE) 10/02/16 16:15 Urine Urobilinogen 0.2 E.U./dL (0.2 - 1.0) 10/02/16 16:15 Ur Leukocyte Esterase TRACE (NEGATIVE) H 10/02/16 16:15 Urine RBC 2-5 /hpf (0-5) H 10/02/16 16:15 Urine WBC 2-5 /hpf (0-5) H 10/02/16 16:15 Ur Epithelial Cells NONE SEEN /lpf (FEW) 10/02/16 16:15 Urine Bacteria NONE SEEN /hpf (NONE SEEN) 10/02/16 16:15 Ur Random Sodium 43 mmol/L 10/02/16 16:15 Urine Creatinine 12.9 mg/dl (Not Estab.) 10/02/16 16:15 Urine Microalbumin 326.7 ug/mL (Not Estab.) 10/02/16 16:15 Microalb/Creat Ratio 2532.6 mg/g creat (0.0-30.0) H 10/02/16 16:15 - Physical Exam Vitals and I&O: Vital Signs Temp 98.4 F 10/04/16 08:00 Pulse 79 10/04/16 09:58 Resp 16 10/04/16 08:00 BP 127/82 10/04/16 09:58 Pulse Ox 96 10/04/16 04:00 Intake & Output 10/03/16 10/04/16 10/04/16 18:59 06:59 18:59 Intake Total 2341 773 7965 Balance 1612 176 7362 Intake: Intake, IV Amount 1050 1000 Sodium Chloride 0.9% 1, 1000 1000 000 ml @ 75 mls/hr IV . [id number] [facility] Rx#:[id number] cefTRIAXone 1 gm In 50 Sodium Chloride 0.9% 50 ml @ 100 mls/hr IV Q24HR [facility] Rx#:[id number] Oral 240 Other: # Voids 2 # Bowel Movements 0 Active Medications: Current Medications Acetaminophen (Tylenol) 650 mg PO Q4HR PRN PRN Reason: Pain Stop: 12/01/16 05:23 Last Admin: 10/03/16 21:14 Dose: 650 mg Docusate Sodium (Colace) 100 mg PO DAILY [facility] Stop: 12/01/16 08:59 Last Admin: 10/04/16 09:58 Dose: 100 mg Ferrous Sulfate (Iron) 325 mg PO DAILY [facility] Stop: 12/01/16 08:59 Last Admin: 10/04/16 09:58 Dose: 325 mg Gabapentin (Neurontin) 600 mg PO BID [facility] Stop: 12/01/16 08:59 Last Admin: 10/04/16 09:59 Dose: 600 mg Ceftriaxone Sodium 1 gm/ (Sodium Chloride) 50 mls @ 100 mls/hr IV Q24HR [facility] Stop: 12/01/16 08:59 Last Admin: 10/04/16 09:54 Dose: 100 mls/hr Sodium Chloride (Nacl 0.9%) 1,000 mls @ 75 mls/hr IV .[id number] [facility] Stop: 12/01/16 05:44 Last Admin: 10/04/16 10:05 Dose: 75 mls/hr Ibuprofen (Motrin) 400 mg PO Q6H PRN PRN Reason: Pain or Fever >101 Stop: 12/02/16 17:46 Last Admin: 10/03/16 18:08 Dose: 400 mg Lorazepam (Ativan) 1 mg PO Q4HR PRN; Protocol PRN Reason: Agitation Stop: 12/01/16 05:23 Last Admin: 10/03/16 21:14 Dose: 1 mg Losartan Potassium (Cozaar) 50 mg PO DAILY [facility] Stop: 12/01/16 08:59 Last Admin: 10/04/16 09:58 Dose: 50 mg Olanzapine (Zyprexa Zydis) 15 mg PO HS [facility] PRN Reason: Protocol Stop: 12/01/16 20:59 Last Admin: 10/03/16 21:14 Dose: 15 mg Senna (Senna) 8.6 mg PO HS [facility] Stop: 12/01/16 20:59 Last Admin: 10/03/16 21:14 Dose: 8.6 mg Zolpidem Tartrate (Ambien) 5 mg PO HS PRN PRN Reason: Insomnia Stop: 12/01/16 05:23 Last Admin: 10/03/16 21:15 Dose: 5 mg General: no acute distress, well developed, well nourished HEENT: atraumatic, normocephalic, PERRLA Neck: supple Cardiovascular: S1S2, no regular Lungs: no clear to auscultation bilaterally, no clear to percussion Abdomen: soft, no tender Extremities: no cyanosis, no clubbing, no edema Neurological: awake, alert, oriented Skin: intact Infectious Disease Assmt/Plan - Problem List Patient Problems: All Active Problems Acute kidney injury (Acute) N17.9 Altered mental status, unspecified (Acute) R41.82 Anxiety (Acute) F41.9 HTN (hypertension) (Acute) I10 Psychosis (Acute) F29 UTI (urinary tract infection) (Acute) high cpk (Acute) - Assessment Assessment: 1. UTI 2. CKD 4. 3. AMS 2/2 metabolic encephalopathy, versus, UTI. 4. Psychosis. 5. Rhabgomyolysis. 6. HTN. 7. Anxiery disorder. - Plan Plan: Change rocephin to levaquin po.
[2016-10-04] MEDS: OLANZapine 5 mg Oral Disintegrating Tab PO SCH (20:54)
[2016-10-05] MEDS: Sodium Chloride 0.9% 1,000 ML IV SCH ×2 (06:59→17:44)
[2016-10-05 07:36] LABS: BUN - UREA NITROGEN 38 mg/dL (7-25); BUN/CREATININE RATIO 18.1; CALCIUM SERUM 9.3 mg/dL (8.6-10.3); CHLORIDE 108 mEq/L (98-107); CREATININE - SERUM 2.1 mg/dL (0.7-1.3); GLUCOSE 72 mg/dL (70-105); SODIUM SERUM 136 mEq/L (136-145)
--- NOTE | 2016-10-05 07:36 | Progress Notes ---
Case was discussed with staff of the patient, reviewed records. The patient was seen by Dr. Acosta, who increased the Seroquel dose. The patient was agitated, angry, and paranoid; today when I talked to him, he was calm and cooperative. He was denying that he wants to harm himself or anyone. He seems a bit sedated. He denies any intent to harm himself or anyone. He is sleeping and eating better. He reports no side effects with the medication, no sedation, no nausea, no extrapyramidal symptoms. Thank you very much for allowing me to participate in the care of this most interesting gentleman. JOB# [id number]
--- NOTE | 2016-10-05 08:11 | General Progress Note ---
Subjective - Review of Systems Service Date: 10/05/16 Events since last encounter: no change Objective - Results Result Diagrams: 10/03/16 06:20 10/05/16 06:10 Recent Labs: Laboratory Last Values WBC 9.1 Th/cmm (4.8-10.8) 10/03/16 06:20 RBC 3.49 Mil/cmm (3.80-5.80) L 10/03/16 06:20 Hgb 10.7 gm/dL (12.6-17.4) L 10/03/16 06:20 Hct 31.3 % (39.0-49.0) L D 10/03/16 06:20 MCV 89.6 fl (80-99) 10/03/16 06:20 MCH 30.7 pg (27.0-31.0) 10/03/16 06:20 MCHC Differential 34.2 pg (28.0-36.0) 10/03/16 06:20 RDW 12.6 % (11.5-20.0) 10/03/16 06:20 Plt Count 298 Th/cmm (150-400) 10/03/16 06:20 MPV 7.9 fl 10/03/16 06:20 Neutrophils % 71.8 % (40.0-80.0) 10/03/16 06:20 Lymphocytes % 14.8 % (20.0-50.0) L 10/03/16 06:20 Monocytes % 9.9 % (2.0-10.0) 10/03/16 06:20 Eosinophils % 0.5 % (0.0-5.0) 10/03/16 06:20 Basophils % 3.0 % (0.0-2.0) H 10/03/16 06:20 Eos Smear Source URINE 10/02/16 16:15 Eos Smear Total Cells NONE SEEN (NONE SEEN) 10/02/16 16:15 Sodium 136 mEq/L (136-145) 10/05/16 06:10 Potassium 5.0 mEq/L (3.5-5.1) 10/05/16 06:10 Chloride 108 mEq/L (98-107) H 10/05/16 06:10 Carbon Dioxide 25.0 mEq/L (21.0-31.0) 10/05/16 06:10 Anion Gap 8.0 (7.0-16.0) 10/05/16 06:10 BUN 38 mg/dL (7-25) H 10/05/16 06:10 Creatinine 2.1 mg/dL (0.7-1.3) H 10/05/16 06:10 Est GFR ( Amer) TNP 10/05/16 06:10 Est GFR (Non-Af Amer) TNP 10/05/16 06:10 BUN/Creatinine Ratio 18.1 10/05/16 06:10 Glucose 72 mg/dL (70-105) 10/05/16 06:10 Plasma/Ser Osmolality 275 mOsmol/kg (280-301) L 10/02/16 06:05 Uric Acid 7.0 mg/dL (4.4-7.6) 10/03/16 06:20 Calcium 9.3 mg/dL (8.6-10.3) 10/05/16 06:10 Phosphorus 3.5 mg/dL (2.5-5.0) 10/03/16 06:20 Magnesium 2.2 mg/dL (1.9-2.7) 10/03/16 06:20 Total Bilirubin 0.3 mg/dL (0.3-1.0) 10/03/16 06:20 AST 34 U/L (13-39) 10/03/16 06:20 ALT 26 U/L (7-52) 10/03/16 06:20 Alkaline Phosphatase 67 U/L (34-104) 10/03/16 06:20 Total Protein 7.6 gm/dL (6.0-8.3) 10/03/16 06:20 Albumin 3.9 gm/dL (4.2-5.5) L 10/03/16 06:20 Globulin 3.7 gm/dL 10/03/16 06:20 Albumin/Globulin Ratio 1.1 (1.0-1.8) 10/03/16 06:20 Urine Source CLEAN C 10/02/16 16:15 Urine Color YELLOW 10/02/16 16:15 Urine Clarity CLEAR (CLEAR) 10/02/16 16:15 Urine pH 6.5 10/02/16 16:15 Ur Specific [place] 1.010 (1.005-1.030) 10/02/16 16:15 Urine Protein 100 mg/dL (NEGATIVE) H 10/02/16 16:15 Urine Glucose (UA) NEGATIVE mg/dL (NEGATIVE) 10/02/16 16:15 Urine Ketones NEGATIVE mg/dL (NEGATIVE) 10/02/16 16:15 Urine Blood TRACE (NEGATIVE) 10/02/16 16:15 Urine Nitrate NEGATIVE (NEGATIVE) 10/02/16 16:15 Urine Bilirubin NEGATIVE (NEGATIVE) 10/02/16 16:15 Urine Urobilinogen 0.2 E.U./dL (0.2 - 1.0) 10/02/16 16:15 Ur Leukocyte Esterase TRACE (NEGATIVE) H 10/02/16 16:15 Urine RBC 2-5 /hpf (0-5) H 10/02/16 16:15 Urine WBC 2-5 /hpf (0-5) H 10/02/16 16:15 Ur Epithelial Cells NONE SEEN /lpf (FEW) 10/02/16 16:15 Urine Bacteria NONE SEEN /hpf (NONE SEEN) 10/02/16 16:15 Ur Random Sodium 43 mmol/L 10/02/16 16:15 Urine Creatinine 12.9 mg/dl (Not Estab.) 10/02/16 16:15 Urine Microalbumin 326.7 ug/mL (Not Estab.) 10/02/16 16:15 Microalb/Creat Ratio 2532.6 mg/g creat (0.0-30.0) H 10/02/16 16:15 - Physical Exam Vitals and I&O: Vital Signs Temp 98.5 F 10/05/16 04:33 Pulse 81 10/05/16 04:33 Resp 18 10/05/16 04:33 BP 143/79 10/05/16 04:33 Pulse Ox 97 10/05/16 04:33 Intake & Output 10/04/16 10/05/16 10/05/16 18:59 06:59 18:59 Intake Total 1400 1000 Output Total 600 300 Balance 800 700 Intake: Intake, IV Amount 1000 1000 Sodium Chloride 0.9% 1, 1000 1000 000 ml @ 75 mls/hr IV . [id number] [facility] Rx#:[id number] Oral 400 Output: Urine 600 300 Other: # Voids 1 # Bowel Movements 0 Stool Characteristics Soft Active Medications: Current Medications Acetaminophen (Tylenol) 650 mg PO Q4HR PRN PRN Reason: Pain Stop: 05/22/17 05:23 Last Admin: 10/03/16 21:14 Dose: 650 mg Docusate Sodium (Colace) 100 mg PO DAILY [facility] Stop: 12/01/16 08:59 Last Admin: 10/04/16 09:58 Dose: 100 mg Ferrous Sulfate (Iron) 325 mg PO DAILY [facility] Stop: 12/01/16 08:59 Last Admin: 10/04/16 09:58 Dose: 325 mg Gabapentin (Neurontin) 600 mg PO BID [facility] Stop: 12/01/16 08:59 Last Admin: 10/04/16 18:29 Dose: 600 mg Ceftriaxone Sodium 1 gm/ (Sodium Chloride) 50 mls @ 100 mls/hr IV Q24HR [facility] Stop: 12/01/16 08:59 Last Admin: 10/04/16 09:54 Dose: 100 mls/hr Sodium Chloride (Nacl 0.9%) 1,000 mls @ 75 mls/hr IV .[id number] [facility] Stop: 12/01/16 05:44 Last Admin: 10/05/16 06:59 Dose: 75 mls/hr Ibuprofen (Motrin) 400 mg PO Q6H PRN PRN Reason: Pain or Fever >101 Stop: 12/02/16 17:46 Last Admin: 10/03/16 18:08 Dose: 400 mg Levofloxacin (Levaquin) 250 mg PO DAILY [facility] Stop: 10/10/16 08:59 Lorazepam (Ativan) 1 mg PO Q4HR PRN; Protocol PRN Reason: Agitation Stop: 12/01/16 05:23 Last Admin: 10/03/16 21:14 Dose: 1 mg Losartan Potassium (Cozaar) 50 mg PO DAILY [facility] Stop: 12/01/16 08:59 Last Admin: 10/04/16 09:58 Dose: 50 mg Olanzapine (Zyprexa Zydis) 15 mg PO HS [facility] PRN Reason: Protocol Stop: 12/01/16 20:59 Last Admin: 10/04/16 20:54 Dose: 15 mg Senna (Senna) 8.6 mg PO HS [facility] Stop: 12/01/16 20:59 Last Admin: 10/04/16 20:56 Dose: 8.6 mg Zolpidem Tartrate (Ambien) 5 mg PO HS PRN PRN Reason: Insomnia Stop: 12/01/16 05:23 Last Admin: 10/03/16 21:15 Dose: 5 mg General: Other (still confused) Neck: Supple Cardiovascular: Regular rate, Normal S1, Normal S2 Lungs: Clear to auscultation Abdomen: Bowel sounds Psych/Mental Status: Mental status NL Assessment/Plan - Problem List Patient Problems: All Active Problems Acute kidney injury (Acute) N17.9 Altered mental status, unspecified (Acute) R41.82 Anxiety (Acute) F41.9 HTN (hypertension) (Acute) I10 Psychosis (Acute) F29 UTI (urinary tract infection) (Acute) high cpk (Acute) - Plan Plan: as per order sheet psych consult
[2016-10-05] MEDS: cefTRIAXone 1 GM in Sodium Chloride 0.9% 50 ML IV SCH (08:44)
[2016-10-05] MEDS: Ferrous Sulfate 325 MG TAB PO SCH (08:46)
--- NOTE | 2016-10-05 13:50 | General Progress Note ---
Subjective - Review of Systems Service Date: 10/05/16 Subjective: alert, comfortable Objective - Results Result Diagrams: 10/03/16 06:20 10/05/16 06:10 Recent Labs: Laboratory Last Values WBC 9.1 Th/cmm (4.8-10.8) 10/03/16 06:20 RBC 3.49 Mil/cmm (3.80-5.80) L 10/03/16 06:20 Hgb 10.7 gm/dL (12.6-17.4) L 10/03/16 06:20 Hct 31.3 % (39.0-49.0) L D 10/03/16 06:20 MCV 89.6 fl (80-99) 10/03/16 06:20 MCH 30.7 pg (27.0-31.0) 10/03/16 06:20 MCHC Differential 34.2 pg (28.0-36.0) 10/03/16 06:20 RDW 12.6 % (11.5-20.0) 10/03/16 06:20 Plt Count 298 Th/cmm (150-400) 10/03/16 06:20 MPV 7.9 fl 10/03/16 06:20 Neutrophils % 71.8 % (40.0-80.0) 10/03/16 06:20 Lymphocytes % 14.8 % (20.0-50.0) L 10/03/16 06:20 Monocytes % 9.9 % (2.0-10.0) 10/03/16 06:20 Eosinophils % 0.5 % (0.0-5.0) 10/03/16 06:20 Basophils % 3.0 % (0.0-2.0) H 10/03/16 06:20 Eos Smear Source URINE 10/02/16 16:15 Eos Smear Total Cells NONE SEEN (NONE SEEN) 10/02/16 16:15 Sodium 136 mEq/L (136-145) 10/05/16 06:10 Potassium 5.0 mEq/L (3.5-5.1) 10/05/16 06:10 Chloride 108 mEq/L (98-107) H 10/05/16 06:10 Carbon Dioxide 25.0 mEq/L (21.0-31.0) 10/05/16 06:10 Anion Gap 8.0 (7.0-16.0) 10/05/16 06:10 BUN 38 mg/dL (7-25) H 10/05/16 06:10 Creatinine 2.1 mg/dL (0.7-1.3) H 10/05/16 06:10 Est GFR ( Amer) TNP 10/05/16 06:10 Est GFR (Non-Af Amer) TNP 10/05/16 06:10 BUN/Creatinine Ratio 18.1 10/05/16 06:10 Glucose 72 mg/dL (70-105) 10/05/16 06:10 Plasma/Ser Osmolality 275 mOsmol/kg (280-301) L 10/02/16 06:05 Uric Acid 7.0 mg/dL (4.4-7.6) 10/03/16 06:20 Calcium 9.3 mg/dL (8.6-10.3) 10/05/16 06:10 Phosphorus 3.5 mg/dL (2.5-5.0) 10/03/16 06:20 Magnesium 2.2 mg/dL (1.9-2.7) 10/03/16 06:20 Total Bilirubin 0.3 mg/dL (0.3-1.0) 10/03/16 06:20 AST 34 U/L (13-39) 10/03/16 06:20 ALT 26 U/L (7-52) 10/03/16 06:20 Alkaline Phosphatase 67 U/L (34-104) 10/03/16 06:20 Total Protein 7.6 gm/dL (6.0-8.3) 10/03/16 06:20 Albumin 3.9 gm/dL (4.2-5.5) L 10/03/16 06:20 Globulin 3.7 gm/dL 10/03/16 06:20 Albumin/Globulin Ratio 1.1 (1.0-1.8) 10/03/16 06:20 Urine Source CLEAN C 10/02/16 16:15 Urine Color YELLOW 10/02/16 16:15 Urine Clarity CLEAR (CLEAR) 10/02/16 16:15 Urine pH 6.5 10/02/16 16:15 Ur Specific [place] 1.010 (1.005-1.030) 10/02/16 16:15 Urine Protein 100 mg/dL (NEGATIVE) H 10/02/16 16:15 Urine Glucose (UA) NEGATIVE mg/dL (NEGATIVE) 10/02/16 16:15 Urine Ketones NEGATIVE mg/dL (NEGATIVE) 10/02/16 16:15 Urine Blood TRACE (NEGATIVE) 10/02/16 16:15 Urine Nitrate NEGATIVE (NEGATIVE) 10/02/16 16:15 Urine Bilirubin NEGATIVE (NEGATIVE) 10/02/16 16:15 Urine Urobilinogen 0.2 E.U./dL (0.2 - 1.0) 10/02/16 16:15 Ur Leukocyte Esterase TRACE (NEGATIVE) H 10/02/16 16:15 Urine RBC 2-5 /hpf (0-5) H 10/02/16 16:15 Urine WBC 2-5 /hpf (0-5) H 10/02/16 16:15 Ur Epithelial Cells NONE SEEN /lpf (FEW) 10/02/16 16:15 Urine Bacteria NONE SEEN /hpf (NONE SEEN) 10/02/16 16:15 Ur Random Sodium 43 mmol/L 10/02/16 16:15 Urine Creatinine 12.9 mg/dl (Not Estab.) 10/02/16 16:15 Urine Microalbumin 326.7 ug/mL (Not Estab.) 10/02/16 16:15 Microalb/Creat Ratio 2532.6 mg/g creat (0.0-30.0) H 10/02/16 16:15 - Physical Exam Vitals and I&O: Vital Signs Temp 97.4 F 10/05/16 08:00 Pulse 74 10/05/16 08:45 Resp 18 10/05/16 08:00 BP 138/77 10/05/16 08:45 Pulse Ox 96 10/05/16 08:00 Intake & Output 10/04/16 10/05/16 10/05/16 18:59 06:59 18:59 Intake Total 1450 1000 50 Output Total 600 300 Balance 850 700 50 Intake: Intake, IV Amount 1050 1000 50 Sodium Chloride 0.9% 1, 1000 1000 000 ml @ 75 mls/hr IV . [id number] [facility] Rx#:[id number] cefTRIAXone 1 gm In 50 50 Sodium Chloride 0.9% 50 ml @ 100 mls/hr IV Q24HR [facility] Rx#:[id number] Oral 400 Output: Urine 600 300 Other: # Voids 1 # Bowel Movements 0 Stool Characteristics Soft Active Medications: Current Medications Acetaminophen (Tylenol) 650 mg PO Q4HR PRN PRN Reason: Pain Stop: 12/01/16 05:23 Last Admin: 10/03/16 21:14 Dose: 650 mg Docusate Sodium (Colace) 100 mg PO DAILY [facility] Stop: 12/01/16 08:59 Last Admin: 10/05/16 08:45 Dose: 100 mg Ferrous Sulfate (Iron) 325 mg PO DAILY [facility] Stop: 12/01/16 08:59 Last Admin: 10/05/16 08:46 Dose: 325 mg Gabapentin (Neurontin) 600 mg PO BID [facility] Stop: 12/01/16 08:59 Last Admin: 10/05/16 08:45 Dose: 600 mg Ceftriaxone Sodium 1 gm/ (Sodium Chloride) 50 mls @ 100 mls/hr IV Q24HR [facility] Stop: 12/01/16 08:59 Last Infusion: 10/05/16 09:45 Dose: Infused Sodium Chloride (Nacl 0.9%) 1,000 mls @ 75 mls/hr IV .[id number] [facility] Stop: 12/01/16 05:44 Last Admin: 10/05/16 06:59 Dose: 75 mls/hr Ibuprofen (Motrin) 400 mg PO Q6H PRN PRN Reason: Pain or Fever >101 Stop: 12/02/16 17:46 Last Admin: 10/03/16 18:08 Dose: 400 mg Levofloxacin (Levaquin) 250 mg PO DAILY [facility] Stop: 10/10/16 08:59 Last Admin: 10/05/16 08:45 Dose: 250 mg Lorazepam (Ativan) 1 mg PO Q4HR PRN; Protocol PRN Reason: Agitation Stop: 12/01/16 05:23 Last Admin: 10/03/16 21:14 Dose: 1 mg Losartan Potassium (Cozaar) 50 mg PO DAILY [facility] Stop: 12/01/16 08:59 Last Admin: 10/05/16 08:45 Dose: 50 mg Olanzapine (Zyprexa Zydis) 15 mg PO HS [facility] PRN Reason: Protocol Stop: 12/01/16 20:59 Last Admin: 10/04/16 20:54 Dose: 15 mg Senna (Senna) 8.6 mg PO HS [facility] Stop: 12/01/16 20:59 Last Admin: 10/04/16 20:56 Dose: 8.6 mg Zolpidem Tartrate (Ambien) 5 mg PO HS PRN PRN Reason: Insomnia Stop: 12/01/16 05:23 Last Admin: 10/03/16 21:15 Dose: 5 mg General: Alert, No acute distress HEENT: Atraumatic, Mucous membr. moist/pink Neck: Supple, +2 carotid pulse wo bruit Cardiovascular: Regular rate, Normal S1, Normal S2 Lungs: Clear to auscultation Abdomen: Bowel sounds, Soft Extremities: no Edema Neurological: Sensation intact Skin: no Rash Assessment/Plan - Problem List Patient Problems: All Active Problems Acute kidney injury (Acute) N17.9 Altered mental status, unspecified (Acute) R41.82 Anxiety (Acute) F41.9 HTN (hypertension) (Acute) I10 Psychosis (Acute) F29 UTI (urinary tract infection) (Acute) high cpk (Acute) - Assessment Assessment: marilynn on ckd s/p ALOC Ess HTN w/ CKD anxiety dis hyponatremia improving - Plan Plan: Lab - Result Diagrams 10/03/16 06:20 10/04/16 06:15 Current Medications Acetaminophen (Tylenol) 650 mg PO Q4HR PRN PRN Reason: Pain Stop: 12/01/16 05:23 Last Admin: 10/03/16 21:14 Dose: 650 mg Docusate Sodium (Colace) 100 mg PO DAILY [facility] Stop: 12/01/16 08:59 Last Admin: 10/04/16 09:58 Dose: 100 mg Ferrous Sulfate (Iron) 325 mg PO DAILY [facility] Stop: 12/01/16 08:59 Last Admin: 10/04/16 09:58 Dose: 325 mg Gabapentin (Neurontin) 600 mg PO BID [facility] Stop: 12/01/16 08:59 Last Admin: 10/04/16 09:59 Dose: 600 mg Ceftriaxone Sodium 1 gm/ (Sodium Chloride) 50 mls @ 100 mls/hr IV Q24HR [facility] Stop: 12/01/16 08:59 Last Admin: 10/04/16 09:54 Dose: 100 mls/hr Sodium Chloride (Nacl 0.9%) 1,000 mls @ 75 mls/hr IV .[id number] [facility] Stop: 12/01/16 05:44 Last Admin: 10/04/16 10:05 Dose: 75 mls/hr Ibuprofen (Motrin) 400 mg PO Q6H PRN PRN Reason: Pain or Fever >101 Stop: 12/02/16 17:46 Last Admin: 10/03/16 18:08 Dose: 400 mg Lorazepam (Ativan) 1 mg PO Q4HR PRN; Protocol PRN Reason: Agitation Stop: 12/01/16 05:23 Last Admin: 10/03/16 21:14 Dose: 1 mg Losartan Potassium (Cozaar) 50 mg PO DAILY CHELI Stop: 12/01/16 08:59 Last Admin: 10/04/16 09:58 Dose: 50 mg Olanzapine (Zyprexa Zydis) 15 mg PO HS CHELI PRN Reason: Protocol Stop: 12/01/16 20:59 Last Admin: 10/03/16 21:14 Dose: 15 mg Senna (Senna) 8.6 mg PO HS CHELI Stop: 12/01/16 20:59 Last Admin: 10/03/16 21:14 Dose: 8.6 mg Zolpidem Tartrate (Ambien) 5 mg PO HS PRN PRN Reason: Insomnia Stop: 12/01/16 05:23 Last Admin: 10/03/16 21:15 Dose: 5 mg cr. stable @ 2.1 continue ivf NS @ 75 ml/hr FE Na 3.9% suggestive of intrinsic renal ds microalb/cr ratio 2532 mg/gm
[2016-10-05] MEDS: OLANZapine 5 mg Oral Disintegrating Tab PO SCH (20:41)
--- NOTE | 2016-10-05 21:48 | Progress Notes ---
Covering for Dr. Acosta. Case was discussed with staff of the patient, reviewed records. The patient seems to be much calmer, sleeping well, and eating well. He is compliant with the medication with no side effects, no sedation, no nausea, and no extrapyramidal symptoms. I recommended the patient needs to follow up with the psychiatrist upon discharge. Thank you very much for allowing me to participate in the care of this most interesting gentleman. [facility]# [id number]
--- NOTE | 2016-10-05 23:36 | Infectious Disease Prog Note ---
Infectious Disease Subjective - Review of Systems Service Date: 10/05/16 Subjective: No new change. Infectious Disease Objective - Results Result Diagrams: 10/03/16 06:20 10/05/16 06:10 Recent Labs: Laboratory Last Values WBC 9.1 Th/cmm (4.8-10.8) 10/03/16 06:20 RBC 3.49 Mil/cmm (3.80-5.80) L 10/03/16 06:20 Hgb 10.7 gm/dL (12.6-17.4) L 10/03/16 06:20 Hct 31.3 % (39.0-49.0) L D 10/03/16 06:20 MCV 89.6 fl (80-99) 10/03/16 06:20 MCH 30.7 pg (27.0-31.0) 10/03/16 06:20 MCHC Differential 34.2 pg (28.0-36.0) 10/03/16 06:20 RDW 12.6 % (11.5-20.0) 10/03/16 06:20 Plt Count 298 Th/cmm (150-400) 10/03/16 06:20 MPV 7.9 fl 10/03/16 06:20 Neutrophils % 71.8 % (40.0-80.0) 10/03/16 06:20 Lymphocytes % 14.8 % (20.0-50.0) L 10/03/16 06:20 Monocytes % 9.9 % (2.0-10.0) 10/03/16 06:20 Eosinophils % 0.5 % (0.0-5.0) 10/03/16 06:20 Basophils % 3.0 % (0.0-2.0) H 10/03/16 06:20 Eos Smear Source URINE 10/02/16 16:15 Eos Smear Total Cells NONE SEEN (NONE SEEN) 10/02/16 16:15 Sodium 136 mEq/L (136-145) 10/05/16 06:10 Potassium 5.0 mEq/L (3.5-5.1) 10/05/16 06:10 Chloride 108 mEq/L (98-107) H 10/05/16 06:10 Carbon Dioxide 25.0 mEq/L (21.0-31.0) 10/05/16 06:10 Anion Gap 8.0 (7.0-16.0) 10/05/16 06:10 BUN 38 mg/dL (7-25) H 10/05/16 06:10 Creatinine 2.1 mg/dL (0.7-1.3) H 10/05/16 06:10 Est GFR ( Amer) TNP 10/05/16 06:10 Est GFR (Non-Af Amer) TNP 10/05/16 06:10 BUN/Creatinine Ratio 18.1 10/05/16 06:10 Glucose 72 mg/dL (70-105) 10/05/16 06:10 Plasma/Ser Osmolality 275 mOsmol/kg (280-301) L 10/02/16 06:05 Uric Acid 7.0 mg/dL (4.4-7.6) 10/03/16 06:20 Calcium 9.3 mg/dL (8.6-10.3) 10/05/16 06:10 Phosphorus 3.5 mg/dL (2.5-5.0) 10/03/16 06:20 Magnesium 2.2 mg/dL (1.9-2.7) 10/03/16 06:20 Total Bilirubin 0.3 mg/dL (0.3-1.0) 10/03/16 06:20 AST 34 U/L (13-39) 10/03/16 06:20 ALT 26 U/L (7-52) 10/03/16 06:20 Alkaline Phosphatase 67 U/L (34-104) 10/03/16 06:20 Total Protein 7.6 gm/dL (6.0-8.3) 10/03/16 06:20 Albumin 3.9 gm/dL (4.2-5.5) L 10/03/16 06:20 Globulin 3.7 gm/dL 10/03/16 06:20 Albumin/Globulin Ratio 1.1 (1.0-1.8) 10/03/16 06:20 Urine Source CLEAN C 10/02/16 16:15 Urine Color YELLOW 10/02/16 16:15 Urine Clarity CLEAR (CLEAR) 10/02/16 16:15 Urine pH 6.5 10/02/16 16:15 Ur Specific [place] 1.010 (1.005-1.030) 10/02/16 16:15 Urine Protein 100 mg/dL (NEGATIVE) H 10/02/16 16:15 Urine Glucose (UA) NEGATIVE mg/dL (NEGATIVE) 10/02/16 16:15 Urine Ketones NEGATIVE mg/dL (NEGATIVE) 10/02/16 16:15 Urine Blood TRACE (NEGATIVE) 10/02/16 16:15 Urine Nitrate NEGATIVE (NEGATIVE) 10/02/16 16:15 Urine Bilirubin NEGATIVE (NEGATIVE) 10/02/16 16:15 Urine Urobilinogen 0.2 E.U./dL (0.2 - 1.0) 10/02/16 16:15 Ur Leukocyte Esterase TRACE (NEGATIVE) H 10/02/16 16:15 Urine RBC 2-5 /hpf (0-5) H 10/02/16 16:15 Urine WBC 2-5 /hpf (0-5) H 10/02/16 16:15 Ur Epithelial Cells NONE SEEN /lpf (FEW) 10/02/16 16:15 Urine Bacteria NONE SEEN /hpf (NONE SEEN) 10/02/16 16:15 Ur Random Sodium 43 mmol/L 10/02/16 16:15 Urine Creatinine 12.9 mg/dl (Not Estab.) 10/02/16 16:15 Urine Microalbumin 326.7 ug/mL (Not Estab.) 10/02/16 16:15 Microalb/Creat Ratio 2532.6 mg/g creat (0.0-30.0) H 10/02/16 16:15 - Physical Exam Vitals and I&O: Vital Signs Temp 98.6 F 10/05/16 20:00 Pulse 74 10/05/16 20:00 Resp 18 10/05/16 20:00 BP 142/79 10/05/16 20:00 Pulse Ox 98 10/05/16 20:00 Intake & Output 10/05/16 10/05/16 10/06/16 06:59 18:59 06:59 Intake Total 1000 856.25 Output Total 300 Balance 700 856.25 Intake: Intake, IV Amount 1000 856.25 Sodium Chloride 0.9% 1, 1000 806.25 000 ml @ 75 mls/hr IV . [id number] [facility] Rx#:[id number] cefTRIAXone 1 gm In 50 Sodium Chloride 0.9% 50 ml @ 100 mls/hr IV Q24HR [facility] Rx#:[id number] Output: Urine 300 Other: # Voids 1 # Bowel Movements 0 Active Medications: Current Medications Acetaminophen (Tylenol) 650 mg PO Q4HR PRN PRN Reason: Pain Stop: 12/01/16 05:23 Last Admin: 10/03/16 21:14 Dose: 650 mg Docusate Sodium (Colace) 100 mg PO DAILY [facility] Stop: 12/01/16 08:59 Last Admin: 10/05/16 08:45 Dose: 100 mg Ferrous Sulfate (Iron) 325 mg PO DAILY [facility] Stop: 12/01/16 08:59 Last Admin: 10/05/16 08:46 Dose: 325 mg Gabapentin (Neurontin) 600 mg PO BID [facility] Stop: 12/01/16 08:59 Last Admin: 10/05/16 16:11 Dose: 600 mg Ceftriaxone Sodium 1 gm/ (Sodium Chloride) 50 mls @ 100 mls/hr IV Q24HR [facility] Stop: 12/01/16 08:59 Last Infusion: 10/05/16 09:45 Dose: Infused Sodium Chloride (Nacl 0.9%) 1,000 mls @ 75 mls/hr IV .[id number] [facility] Stop: 12/01/16 05:44 Last Admin: 10/05/16 17:44 Dose: 75 mls/hr Ibuprofen (Motrin) 400 mg PO Q6H PRN PRN Reason: Pain or Fever >101 Stop: 12/02/16 17:46 Last Admin: 10/03/16 18:08 Dose: 400 mg Levofloxacin (Levaquin) 250 mg PO DAILY [facility] Stop: 10/10/16 08:59 Last Admin: 10/05/16 08:45 Dose: 250 mg Lorazepam (Ativan) 1 mg PO Q4HR PRN; Protocol PRN Reason: Agitation Stop: 12/01/16 05:23 Last Admin: 10/03/16 21:14 Dose: 1 mg Losartan Potassium (Cozaar) 50 mg PO DAILY [facility] Stop: 12/01/16 08:59 Last Admin: 10/05/16 08:45 Dose: 50 mg Olanzapine (Zyprexa Zydis) 15 mg PO HS [facility] PRN Reason: Protocol Stop: 12/01/16 20:59 Last Admin: 10/05/16 20:41 Dose: 15 mg Senna (Senna) 8.6 mg PO HS [facility] Stop: 12/01/16 20:59 Last Admin: 10/05/16 20:41 Dose: 8.6 mg Zolpidem Tartrate (Ambien) 5 mg PO HS PRN PRN Reason: Insomnia Stop: 12/01/16 05:23 Last Admin: 10/03/16 21:15 Dose: 5 mg General: no acute distress, well developed, well nourished HEENT: atraumatic, normocephalic, PERRLA, EOMI, moist mucous membrane Neck: supple Cardiovascular: S1S2, regular Lungs: clear to auscultation bilaterally, clear to percussion Abdomen: soft, no tender, no distended Extremities: no cyanosis, no clubbing, no edema Neurological: awake, alert, oriented Skin: intact Infectious Disease Assmt/Plan - Problem List Patient Problems: All Active Problems Acute kidney injury (Acute) N17.9 Altered mental status, unspecified (Acute) R41.82 Anxiety (Acute) F41.9 HTN (hypertension) (Acute) I10 Psychosis (Acute) F29 UTI (urinary tract infection) (Acute) high cpk (Acute) - Assessment Assessment: 1. UTI 2. CKD 4. 3. AMS 2/2 metabolic encephalopathy, versus, UTI. 4. Psychosis. 5. Rhabgomyolysis. 6. HTN. 7. Anxiery disorder. - Plan Plan: Continue levaquin po.
[2016-10-06] MEDS: Ferrous Sulfate 325 MG TAB PO SCH (08:22)
[2016-10-06] MEDS: Sodium Chloride 0.9% 1,000 ML IV SCH (08:22)
[2016-10-06] MEDS: cefTRIAXone 1 GM in Sodium Chloride 0.9% 50 ML IV SCH (09:34)
--- NOTE | 2016-10-06 14:47 | General Progress Note ---
Subjective - Review of Systems Service Date: 10/06/16 Subjective: alert, comfortable Objective - Results Result Diagrams: 10/03/16 06:20 10/05/16 06:10 Recent Labs: Laboratory Last Values WBC 9.1 Th/cmm (4.8-10.8) 10/03/16 06:20 RBC 3.49 Mil/cmm (3.80-5.80) L 10/03/16 06:20 Hgb 10.7 gm/dL (12.6-17.4) L 10/03/16 06:20 Hct 31.3 % (39.0-49.0) L D 10/03/16 06:20 MCV 89.6 fl (80-99) 10/03/16 06:20 MCH 30.7 pg (27.0-31.0) 10/03/16 06:20 MCHC Differential 34.2 pg (28.0-36.0) 10/03/16 06:20 RDW 12.6 % (11.5-20.0) 10/03/16 06:20 Plt Count 298 Th/cmm (150-400) 10/03/16 06:20 MPV 7.9 fl 10/03/16 06:20 Neutrophils % 71.8 % (40.0-80.0) 10/03/16 06:20 Lymphocytes % 14.8 % (20.0-50.0) L 10/03/16 06:20 Monocytes % 9.9 % (2.0-10.0) 10/03/16 06:20 Eosinophils % 0.5 % (0.0-5.0) 10/03/16 06:20 Basophils % 3.0 % (0.0-2.0) H 10/03/16 06:20 Eos Smear Source URINE 10/02/16 16:15 Eos Smear Total Cells NONE SEEN (NONE SEEN) 10/02/16 16:15 Sodium 136 mEq/L (136-145) 10/05/16 06:10 Potassium 5.0 mEq/L (3.5-5.1) 10/05/16 06:10 Chloride 108 mEq/L (98-107) H 10/05/16 06:10 Carbon Dioxide 25.0 mEq/L (21.0-31.0) 10/05/16 06:10 Anion Gap 8.0 (7.0-16.0) 10/05/16 06:10 BUN 38 mg/dL (7-25) H 10/05/16 06:10 Creatinine 2.1 mg/dL (0.7-1.3) H 10/05/16 06:10 Est GFR ( Amer) TNP 10/05/16 06:10 Est GFR (Non-Af Amer) TNP 10/05/16 06:10 BUN/Creatinine Ratio 18.1 10/05/16 06:10 Glucose 72 mg/dL (70-105) 10/05/16 06:10 Plasma/Ser Osmolality 275 mOsmol/kg (280-301) L 10/02/16 06:05 Uric Acid 7.0 mg/dL (4.4-7.6) 10/03/16 06:20 Calcium 9.3 mg/dL (8.6-10.3) 10/05/16 06:10 Phosphorus 3.5 mg/dL (2.5-5.0) 10/03/16 06:20 Magnesium 2.2 mg/dL (1.9-2.7) 10/03/16 06:20 Total Bilirubin 0.3 mg/dL (0.3-1.0) 10/03/16 06:20 AST 34 U/L (13-39) 10/03/16 06:20 ALT 26 U/L (7-52) 10/03/16 06:20 Alkaline Phosphatase 67 U/L (34-104) 10/03/16 06:20 Total Protein 7.6 gm/dL (6.0-8.3) 10/03/16 06:20 Albumin 3.9 gm/dL (4.2-5.5) L 10/03/16 06:20 Globulin 3.7 gm/dL 10/03/16 06:20 Albumin/Globulin Ratio 1.1 (1.0-1.8) 10/03/16 06:20 Urine Source CLEAN C 10/02/16 16:15 Urine Color YELLOW 10/02/16 16:15 Urine Clarity CLEAR (CLEAR) 10/02/16 16:15 Urine pH 6.5 10/02/16 16:15 Ur Specific [place] 1.010 (1.005-1.030) 10/02/16 16:15 Urine Protein 100 mg/dL (NEGATIVE) H 10/02/16 16:15 Urine Glucose (UA) NEGATIVE mg/dL (NEGATIVE) 10/02/16 16:15 Urine Ketones NEGATIVE mg/dL (NEGATIVE) 10/02/16 16:15 Urine Blood TRACE (NEGATIVE) 10/02/16 16:15 Urine Nitrate NEGATIVE (NEGATIVE) 10/02/16 16:15 Urine Bilirubin NEGATIVE (NEGATIVE) 10/02/16 16:15 Urine Urobilinogen 0.2 E.U./dL (0.2 - 1.0) 10/02/16 16:15 Ur Leukocyte Esterase TRACE (NEGATIVE) H 10/02/16 16:15 Urine RBC 2-5 /hpf (0-5) H 10/02/16 16:15 Urine WBC 2-5 /hpf (0-5) H 10/02/16 16:15 Ur Epithelial Cells NONE SEEN /lpf (FEW) 10/02/16 16:15 Urine Bacteria NONE SEEN /hpf (NONE SEEN) 10/02/16 16:15 Ur Random Sodium 43 mmol/L 10/02/16 16:15 Urine Creatinine 12.9 mg/dl (Not Estab.) 10/02/16 16:15 Urine Microalbumin 326.7 ug/mL (Not Estab.) 10/02/16 16:15 Microalb/Creat Ratio 2532.6 mg/g creat (0.0-30.0) H 10/02/16 16:15 - Physical Exam Vitals and I&O: Vital Signs Temp 98.2 F 10/06/16 14:07 Pulse 62 10/06/16 14:07 Resp 18 10/06/16 14:07 BP 142/83 10/06/16 14:07 Pulse Ox 98 10/06/16 14:07 Intake & Output 10/05/16 10/06/16 10/06/16 18:59 06:59 18:59 Intake Total 856.25 25 1999 Output Total 1 Balance 856.25 25 1998 Intake: Intake, IV Amount 856.25 1000 Sodium Chloride 0.9% 1, 806.25 1000 000 ml @ 75 mls/hr IV . [id number] [facility] Rx#:[id number] cefTRIAXone 1 gm In 50 Sodium Chloride 0.9% 50 ml @ 100 mls/hr IV Q24HR [facility] Rx#:[id number] Oral 25 1000 Output: Urine 1 Other: # Voids 4 # Bowel Movements 0 Active Medications: Current Medications Acetaminophen (Tylenol) 650 mg PO Q4HR PRN PRN Reason: Pain Stop: 12/01/16 05:23 Last Admin: 10/03/16 21:14 Dose: 650 mg Docusate Sodium (Colace) 100 mg PO DAILY [facility] Stop: 12/01/16 08:59 Last Admin: 10/06/16 08:21 Dose: 100 mg Ferrous Sulfate (Iron) 325 mg PO DAILY [facility] Stop: 12/01/16 08:59 Last Admin: 10/06/16 08:22 Dose: 325 mg Gabapentin (Neurontin) 600 mg PO BID [facility] Stop: 12/01/16 08:59 Last Admin: 10/06/16 08:22 Dose: 600 mg Ceftriaxone Sodium 1 gm/ (Sodium Chloride) 50 mls @ 100 mls/hr IV Q24HR [facility] Stop: 12/01/16 08:59 Last Admin: 10/06/16 09:34 Dose: 100 mls/hr Sodium Chloride (Nacl 0.9%) 1,000 mls @ 75 mls/hr IV .[id number] [facility] Stop: 12/01/16 05:44 Last Admin: 10/06/16 08:22 Dose: 75 mls/hr Ibuprofen (Motrin) 400 mg PO Q6H PRN PRN Reason: Pain or Fever >101 Stop: 12/02/16 17:46 Last Admin: 10/03/16 18:08 Dose: 400 mg Levofloxacin (Levaquin) 250 mg PO DAILY [facility] Stop: 10/10/16 08:59 Last Admin: 10/06/16 08:21 Dose: 250 mg Lorazepam (Ativan) 1 mg PO Q4HR PRN; Protocol PRN Reason: Agitation Stop: 12/01/16 05:23 Last Admin: 10/03/16 21:14 Dose: 1 mg Losartan Potassium (Cozaar) 50 mg PO DAILY [facility] Stop: 12/01/16 08:59 Last Admin: 10/06/16 08:21 Dose: 50 mg Olanzapine (Zyprexa Zydis) 15 mg PO HS [facility] PRN Reason: Protocol Stop: 12/01/16 20:59 Last Admin: 10/05/16 20:41 Dose: 15 mg Senna (Senna) 8.6 mg PO HS [facility] Stop: 12/01/16 20:59 Last Admin: 10/05/16 20:41 Dose: 8.6 mg Zolpidem Tartrate (Ambien) 5 mg PO HS PRN PRN Reason: Insomnia Stop: 12/01/16 05:23 Last Admin: 10/03/16 21:15 Dose: 5 mg General: Alert, No acute distress HEENT: Atraumatic, Mucous membr. moist/pink Neck: Supple, +2 carotid pulse wo bruit Cardiovascular: Regular rate, Normal S1, Normal S2 Lungs: Clear to auscultation Abdomen: Bowel sounds, Soft Extremities: no Edema Neurological: Sensation intact Skin: no Rash Psych/Mental Status: Mood NL Assessment/Plan - Problem List Patient Problems: All Active Problems Acute kidney injury (Acute) N17.9 Altered mental status, unspecified (Acute) R41.82 Anxiety (Acute) F41.9 HTN (hypertension) (Acute) I10 Psychosis (Acute) F29 UTI (urinary tract infection) (Acute) high cpk (Acute) - Assessment Assessment: marilynn on ckd s/p ALOC Ess HTN w/ CKD anxiety dis hyponatremia improving - Plan Plan: Lab - Result Diagrams 10/03/16 06:20 10/04/16 06:15 Current Medications Acetaminophen (Tylenol) 650 mg PO Q4HR PRN PRN Reason: Pain Stop: 12/01/16 05:23 Last Admin: 10/03/16 21:14 Dose: 650 mg Docusate Sodium (Colace) 100 mg PO DAILY [facility] Stop: 12/01/16 08:59 Last Admin: 10/04/16 09:58 Dose: 100 mg Ferrous Sulfate (Iron) 325 mg PO DAILY [facility] Stop: 12/01/16 08:59 Last Admin: 10/04/16 09:58 Dose: 325 mg Gabapentin (Neurontin) 600 mg PO BID [facility] Stop: 12/01/16 08:59 Last Admin: 10/04/16 09:59 Dose: 600 mg Ceftriaxone Sodium 1 gm/ (Sodium Chloride) 50 mls @ 100 mls/hr IV Q24HR [facility] Stop: 12/01/16 08:59 Last Admin: 10/04/16 09:54 Dose: 100 mls/hr Sodium Chloride (Nacl 0.9%) 1,000 mls @ 75 mls/hr IV .[id number] [facility] Stop: 12/01/16 05:44 Last Admin: 10/04/16 10:05 Dose: 75 mls/hr Ibuprofen (Motrin) 400 mg PO Q6H PRN PRN Reason: Pain or Fever >101 Stop: 12/02/16 17:46 Last Admin: 10/03/16 18:08 Dose: 400 mg Lorazepam (Ativan) 1 mg PO Q4HR PRN; Protocol PRN Reason: Agitation Stop: 12/01/16 05:23 Last Admin: 10/03/16 21:14 Dose: 1 mg Losartan Potassium (Cozaar) 50 mg PO DAILY [facility] Stop: 12/01/16 08:59 Last Admin: 10/04/16 09:58 Dose: 50 mg Olanzapine (Zyprexa Zydis) 15 mg PO HS [facility] PRN Reason: Protocol Stop: 12/01/16 20:59 Last Admin: 10/03/16 21:14 Dose: 15 mg Senna (Senna) 8.6 mg PO HS [facility] Stop: 12/01/16 20:59 Last Admin: 10/03/16 21:14 Dose: 8.6 mg Zolpidem Tartrate (Ambien) 5 mg PO HS PRN PRN Reason: Insomnia Stop: 12/01/16 05:23 Last Admin: 10/03/16 21:15 Dose: 5 mg cr. stable @ 2.1 continue ivf NS @ 75 ml/hr FE Na 3.9% suggestive of intrinsic renal ds microalb/cr ratio 2532 mg/gm Lab - Result Diagrams 10/03/16 06:20 10/05/16 06:10
--- NOTE | 2016-10-07 05:50 | Consultation ---
The patient is a patient of Dr. Bobo. HISTORY AND PHYSICAL: This is a 71-year-old male patient who has a known history of psychosis. The patient was aggressive, agitated and confused and altered level. Following this, the patient was seen at the Emergency Room at [facility] and due to insurance reason, the patient was transferred to [facility]. The patient apparently has urinary tract infection and CKD, stage III at the present time. PAST MEDICAL HISTORY: CKD, stage III; hypertension; anxiety; hyperlipidemia; peripheral neuropathy; iron-deficiency anemia and chronic constipation. FAMILY HISTORY: Unremarkable. SOCIAL HISTORY: No history of smoking or alcohol abuse. ALLERGIES: None. PHYSICAL EXAMINATION: VITAL SIGNS: Blood pressure 130/82, pulse 88 and respirations 28. HEAD: Normocephalic. No lumps or bumps. EYES: Pupils equal, reactive to light. Fundi show AV nicking, sclerae white, conjunctivae pink. NECK: Carotid 2+. Normal upstroke. JVD flat. Thyroid not palpable. Lymph nodes not palpable. CHEST: Shows increased AP diameter. No kyphosis, scoliosis. LUNGS: Bilateral bronchovesicular breath sounds. HEART: PMI fifth intercostal space with [id number] line. S1 and S2. No S3 or S4. Systolic murmur, grade 2/6, lower left sternal border without radiation. ABDOMEN: Soft. Liver and spleen not palpable. No organomegaly. Bowel sounds active. NEUROLOGIC: Unremarkable. EXTREMITIES: Peripheral pulses 2+. No pedal edema. CLINICAL IMPRESSION: Hypertension; rhabdomyolysis; chronic kidney disease, stage III secondary to rhabdomyolysis; urinary tract infection; anxiety and peripheral neuropathy. PLAN: Admit the patient. We will continue the patient on IV fluids, monitor the patient closely for congestive heart failure and also have renal consult and psyche consult for psychosis. JOB# [id number]
== END 2016-10-06 15:18 | DRG 682 ==
LOC: TELE 03:53
PROVIDERS: ADMIT Internal Medicine; ATTEND Internal Medicine
DX: N17.9 Acute kidney failure, unspecified (principal); G93.41 Metabolic encephalopathy; M62.82 Rhabdomyolysis; E11.22 Type 2 diabetes mellitus with diabetic chronic kidney disease; F03.90 Unspecified dementia, unspecified severity, without behavioral disturbance, psychotic disturbance, mood disturbance, and anxiety; E87.1 Hypo-osmolality and hyponatremia; N39.0 Urinary tract infection, site not specified; F20.0 Paranoid schizophrenia; N18.4 Chronic kidney disease, stage 4 (severe); F29 Unspecified psychosis not due to a substance or known physiological condition; I12.9 Hypertensive chronic kidney disease with stage 1 through stage 4 chronic kidney disease, or unspecified chronic kidney disease; F31.9 Bipolar disorder, unspecified; E78.5 Hyperlipidemia, unspecified; E11.42 Type 2 diabetes mellitus with diabetic polyneuropathy; K59.00 Constipation, unspecified
CPT/HCPCS: 36415-UA; 76770-TC; 80048-TC; 80053-TC; 81001-TC; 81015-TC; 82043-90; 82570-TC; 83735-TC; 83930-90; 84100-TC; 84300-TC; 84550-TC; 85025-TC; 87086-90; J0696; J7030; Z7610

== ENCOUNTER 2016-10-06 15:19 | Inpatient (IN) | payer MEDICARE, MEDICAID ==
[2016-10-06 17:06] VITALS: BP 153/74
--- NOTE | 2016-10-06 19:15 | History & Physical ---
HISTORY OF PRESENT ILLNESS: The patient was [facility] to [facility] Room due to altered level of consciousness and from ER, the patient was UTI, and the patient was admitted to the Med/Surg floor where he was treated with a series of antibiotics and then from [facility]/Surg floor, the patient had episode of psychosis which the patient was moved to Geropsych Unit. REVIEW OF SYSTEMS: GENERAL: The patient has no any signs or symptoms of distress. HEENT: Denies any headache, denies any eye pain. Denies any earache. No throat pain. CARDIOVASCULAR: No chest pain. PULMONARY: No coughing. Denies any shortness of breath. GASTROINTESTINAL: Denies any abdominal pain, no diarrhea. No constipation. GENITOURINARY: Denies any dysuria. MUSCULOSKELETAL: Denies any muscle pain. PAST MEDICAL HISTORY: Hypertension, anxiety, anemia, and nicotine dependence. PAST PSYCHIATRIC HISTORY: Includes schizophrenia, anxiety, and insomnia. SOCIAL HISTORY: The patient used to live in long-term facility prior to admission to [facility]/Surg floor. The patient is a current cigarette smoker. FAMILY HISTORY: Unremarkable. PAST SURGICAL HISTORY: Unremarkable. PHYSICAL EXAMINATION: GENERAL: In no acute distress. HEENT: Head is atraumatic and normocephalic. Eyes: Bilateral conjunctivae clear from injection. Nares are patent. NECK: Supple. No JVD. CARDIOVASCULAR: S1 and S2 heard without murmur. PULMONARY: Mild inspiratory wheezing noted. GASTROINTESTINAL: Soft and nontender without guarding. MUSCULOSKELETAL: No edema. No clubbing. ASSESSMENT: 1. Schizophrenia. 2. Anxiety. 3. Insomnia. 4. Hypertension. 5. Anemia. 6. Nicotine dependence. 7. Muscle weakness. PLAN: We will admit the patient to the Geropsych Unit. We will follow up with a psychiatrist to monitor the patient's behavior. JOB# [id number]
[2016-10-06] MEDS ORDERED: Maalox 30 mL Cup PO PRN (20:12)
[2016-10-06] MEDS ORDERED: Magnesium Hydroxide (MOM) 30 mL UDC PO PRN (20:12)
--- NOTE | 2016-10-06 22:26 | Progress Notes ---
Case was discussed with staff of the patient. The patient has been more pleasant. His agitation has decreased. He is responding well to redirection. He is denying any current intent to harm himself or anybody. He denies any current hallucinations or paranoia. He is sleeping well and eating well. So, I would recommend that the patient will need to follow up with the psychiatrist upon discharge. Thank you very much for allowing me to participate in the care of this most interesting gentleman. JOB# [id number]
--- NOTE | 2016-10-06 22:36 | Admit Criteria Form ---
Admit Criteria Forms - Admit Criteria Diagnosis: PSYCHIATRIC DISORDERS Clinical Indications for Inpatient Care (Place 'X' for any and all applicable criteria): Ongoing inpatient care may be needed for ANY ONE of the following(1)(2)(3)(4)(6) (7)(8): [ ]I. Danger to self or others not manageable at lower level of care. [ ]II. Grave disability (eg, inability to perform self care necessary at lower level of care) [ ]III. Agitation or inappropriate behavior interfering with care for primary condition (eg, attempting to discontinue lines or drains prematurely, unable to cooperate with respiratory care) [X]IV. Severe disability or disorder indicated by ALL of the following: [X]a) Severe behavioral health disorder-related symptoms or condition indicated by ANY ONE of the following: [ ]i) Severe problem with cognition, memory, judgment, or impulse control [X]ii) Severe clinical manifestations (eg, hallucinations, delusions, other acute psychotic symptoms, lisha, extreme agitation or anxiety) [X]b) Patient management at lower level of care is not feasible until acute intervention or modification is initiated. Extended stay beyond goal length of stay for the primary condition may be indicated when ANY ONE of the following is present: (1)(2)(3)(4): [ ]a) Patient is a danger to self or others and not manageable at lower level of care. [ ]b) Behavior crisis management, including physical or chemical restraints, is required and is not available at a lower level of care. [ ]c) Behavioral symptoms (e.g., agitation, somnolence, inappropriate behavior) are present, and are not manageable at a lower level of care. [ ]d) Patient cannot understand follow-up treatment and crisis plan. [ ]e) Provider and supports are not sufficiently available at lower level of care. [ ]f) Patient cannot participate (e.g., verify absence of plan for harm) and is in needed of monitoring. The [facility] content created by [facility] has been revised. The portions of the content which have been revised are identified through the use of italic text or in bold, and [facility] has neither reviewed nor approved the modified material. All other unmodified content is copyright [facility]. Please see references footnoted in the original [facility] edition 2016 Admit Criteria Met?: Yes
[2016-10-06] MEDS: OLANZapine 5 mg Oral Disintegrating Tab PO SCH (23:04)
[2016-10-07] MEDS: Ferrous Sulfate 325 MG TAB PO SCH (08:35)
[2016-10-07] MEDS: Multivitamin Tab PO SCH (08:41)
--- NOTE | 2016-10-07 09:03 | General Progress Note ---
Subjective - Review of Systems Service Date: 10/07/16 Events since last encounter: patient admitted for altered level consciousness , patient had episode of psychosis Objective - Physical Exam Vitals and I&O: Vital Signs Temp 98.0 F 10/07/16 06:13 Pulse 66 10/07/16 08:36 Resp 20 10/07/16 06:13 BP 145/73 10/07/16 08:36 Pulse Ox 98 10/07/16 06:13 Intake & Output 10/06/16 10/07/16 10/07/16 18:59 06:59 18:59 Intake Total 240 Balance 240 Intake: Oral 240 Other: # Voids 1 # Bowel Movements 0 Active Medications: Current Medications Acetaminophen (Tylenol) 650 mg PO Q4HR PRN PRN Reason: Pain OR TEMP 100.3 F Stop: 12/05/16 20:11 Al Hydrox/Mg Hydrox/Simethicone (Maalox) 30 ml PO Q4HR PRN PRN Reason: GI DISTRESS Stop: 12/05/16 20:11 Docusate Sodium (Colace) 100 mg PO DAILY [facility] Stop: 12/06/16 08:59 Last Admin: 10/07/16 08:35 Dose: 100 mg Ferrous Sulfate (Iron) 325 mg PO DAILY [facility] Stop: 12/06/16 08:59 Last Admin: 10/07/16 08:35 Dose: 325 mg Gabapentin (Neurontin) 600 mg PO BID [facility] Stop: 12/06/16 08:59 Last Admin: 10/07/16 08:35 Dose: 600 mg Levofloxacin (Levaquin) 250 mg PO DAILY [facility] Stop: 10/10/16 08:59 Last Admin: 10/07/16 08:35 Dose: 250 mg Lorazepam (Ativan) 0.5 mg PO Q4HR PRN; Protocol PRN Reason: Anxiety Stop: 11/05/16 20:11 Losartan Potassium (Cozaar) 50 mg PO DAILY [facility] Stop: 12/06/16 08:59 Last Admin: 10/07/16 08:36 Dose: 50 mg Multivitamins/Vitamin C (Theragran) 1 tab PO DAILY [facility] Stop: 12/06/16 08:59 Last Admin: 10/07/16 08:41 Dose: 1 tab Olanzapine (Zyprexa Zydis) 15 mg PO HS [facility] PRN Reason: Protocol Stop: 12/05/16 20:59 Last Admin: 10/06/16 23:04 Dose: Not Given Senna (Senna) 8.6 mg PO HS [facility] Stop: 12/05/16 20:59 Last Admin: 10/06/16 21:19 Dose: Not Given Zolpidem Tartrate (Ambien) 5 mg PO HS PRN PRN Reason: Insomnia Stop: 12/05/16 20:11 General: No acute distress HEENT: Atraumatic Neck: Supple Cardiovascular: Regular rate Abdomen: Bowel sounds Assessment/Plan - Problem List Patient Problems: All Active Problems Acute kidney injury (Acute) N17.9 Altered mental status, unspecified (Acute) R41.82 Anxiety (Acute) F41.9 HTN (hypertension) (Acute) I10 Psychosis (Acute) F29 UTI (urinary tract infection) (Acute) high cpk (Acute) - Plan Plan: as per psych as problems arise
--- NOTE | 2016-10-07 12:43 | Psychosocial Evaluation ---
IDENTIFYING INFORMATION: The patient is a 71-year-old male. CHIEF COMPLAINT: The patient was transferred from the medical floor because of agitation and psychosis. HISTORY OF PRESENT ILLNESS: The patient was a poor historian. Apparently, he was living in a snf who was seen by Dr. Acosta when he was on the medical floor and he had him on Zyprexa. The patient was admitted to the medical floor because of infection with episodes of psychosis, so he was moved here because of his psychosis. When I talked to him about his age, he was unable to tell me his age. He reported that he is not , but he has ____ children. He reported that he has his own place. He was unable to participate in a meaningful conversation; however, he was denying that he wanted to harm himself or anybody. He denies having any hallucinations and has very poor insight, however, the whole situation with a history of schizophrenia. PAST PSYCHIATRIC HISTORY: Schizophrenia. Apparently, the patient has been treated for it. He also admits to substance abuse, but he was unable to give me any details about it. He denies prior suicide attempt; however, he is not a reliable historian. MEDICAL HISTORY: Defer to the medical doctor. ALLERGIES: He has no known drug allergies. MEDICATIONS: Zyprexa 50 mg at bedtime, losartan for blood pressure, antibiotic Levaquin, and iron for anemia. FAMILY AND SOCIAL HISTORY: The patient is unable to give me details about what he did for living. He was talking in a very ____ voice, very hard to understand. Admits to substance abuse, unable to give details, unable to give me any information regarding family history. MENTAL STATUS EXAMINATION: The patient is appropriately dressed, not well groomed. His mood is depressed. Affect is constricted. Thoughts are concrete. Speech is coherent; however, he was unable to tell me the date, where he is, why he is here. He has episodes of agitation, irritability. He has been sleeping well, eating well. He denies any current hallucination or paranoia, however, he is not a reliable historian. He has been getting agitated, ____ easily. His long and short-term memory is poor. He is unable to tell me his age, how long he has been here, why he is here. His insight and judgment impaired. IMPRESSION: AXIS I: Chronic paranoid schizophrenia. MEDICAL DIAGNOSES: Deferred to the medical doctor. INITIAL TREATMENT PLAN: We will continue the Zyprexa and adjust medication as needed. ESTIMATED LENGTH OF STAY: 3-7 days. DISCHARGE CRITERIA: Decrease agitation, psychosis after discharge outpatient. JOB# [id number]
[2016-10-07] MEDS: OLANZapine 5 mg Oral Disintegrating Tab PO SCH (20:39)
--- NOTE | 2016-10-07 23:34 | History & Physical ---
HISTORY OF PRESENT ILLNESS: The patient is an elderly male patient. The patient is known to me for a long time. The patient is known to have a history of hypertension, history of anemia, history of anxiety, and history of COPD. The patient came to the Emergency Room with altered level of consciousness. He had a UTI and was admitted and treated for UTI. The patient improved. The patient was in stable condition. On 10/06/2016, he was later on transferred to [facility] for psychiatric evaluation and treatment. REVIEW OF SYSTEMS: Essentially negative except for above symptoms. PSYCHIATRIC HISTORY: History of schizophrenia. SOCIAL HISTORY: History of smoking in the past. Also current smoker. PHYSICAL EXAMINATION: GENERAL: Alert and oriented, not in any acute distress. VITAL SIGNS: Stable. HEENT: Head: Normal. ENT: Normal. NECK: Supple. Nontender. LUNGS: Clear. CARDIOVASCULAR: S1 and S2 heard. ABDOMEN: Soft. Bowel sounds are heard. DIRECTOR OF GUIDANCE: Grossly normal. DIAGNOSES: Schizophrenia, anxiety, history of hypertension, history of anemia, chronic obstructive pulmonary disease, ____. PLAN: The patient is being admitted. I will follow the medical problems and Dr. Acosta is going to follow his psychiatric problems. JOB# [id number]
[2016-10-08] MEDS: Ferrous Sulfate 325 MG TAB PO SCH (08:21)
[2016-10-08] MEDS: Multivitamin Tab PO SCH (08:22)
[2016-10-08] MEDS: OLANZapine 5 mg Oral Disintegrating Tab PO SCH (21:03)
--- NOTE | 2016-10-09 04:35 | Progress Notes ---
PSYCHIATRIC PROGRESS NOTE SUBJECTIVE: Chart reviewed and the patient interviewed. Also discussed the patient's condition with the staff and reviewed records and labs. The patient is still extremely paranoid and is still suspicious. The patient also is isolative and withdrawn and interacting minimally with others. He also wants to be left alone. Also, personal hygiene is still poor and he is refusing toothpaste or shower or shave. Also, his interaction with others is minimum. Also, during the interview, the patient seems to be preoccupied and is paranoid. ASSESSMENT: The patient is still psychotic. TREATMENT PLAN: We will continue monitoring his behavior and his condition closely. Also, we will increase Zyprexa to 20 mg at bedtime and will continue to follow up closely. JOB# [id number]
--- NOTE | 2016-10-09 05:34 | Progress Notes ---
SUBJECTIVE: The patient was seen in his room lying on the bed. The patient is more calm and awake and alert at this time. The patient stated that he is doing okay. Denies any depression, denies any paranoia, denies any intension of hurting himself or hurting someone else. OBJECTIVE: HEENT: Head: Atraumatic and normocephalic. Eyes: Bilateral conjunctivae are clear from injections. NECK: Supple. No JVD. CARDIOVASCULAR: S1 and S2 heard without murmur. PULMONARY: Clear to auscultation with mild inspiratory wheezing. GASTROINTESTINAL: Soft and nontender without murmur. MUSCULOSKELETAL: No edema and no clubbing noted. ASSESSMENT: 1. Schizophrenia. 2. Anxiety. 3. Insomnia. 4. Hypertension. 5. Anemia. 6. Nicotine dependence. PLAN: We will continue to keep the patient in the psych unit and we will follow up with a psychiatrist to monitor the patient's behavior. JOB# [id number]
[2016-10-09] MEDS: Multivitamin Tab PO SCH (08:19)
[2016-10-09] MEDS: Ferrous Sulfate 325 MG TAB PO SCH (08:19)
[2016-10-09] MEDS: OLANZapine 5 mg Oral Disintegrating Tab PO SCH (21:19)
--- NOTE | 2016-10-10 05:31 | Progress Notes ---
SUBJECTIVE: Chart reviewed and the patient interviewed. Also discussed the patient's condition with the staff and reviewed records and labs. The patient continued to be delusional and he is still severely paranoid. The patient also is still actively hallucinating and is still talking to himself. Also, is restless and easily agitated. The patient also still wants to be left alone and had minimum interaction with others. On the other hand, the patient did shower and bathe yesterday. ASSESSMENT: The patient is still psychotic and agitated. TREATMENT PLAN: Continue to monitor his behavior and his condition closely. Also, continue Zyprexa same dose and continue to adjust his medications closely. JOB# [id number]
[2016-10-10] MEDS: Ferrous Sulfate 325 MG TAB PO SCH (08:48)
[2016-10-10] MEDS: Multivitamin Tab PO SCH (08:48)
[2016-10-10] MEDS: OLANZapine 5 mg Oral Disintegrating Tab PO SCH (21:07)
--- NOTE | 2016-10-10 22:59 | Progress Notes ---
SUBJECTIVE: Chart reviewed and the patient interviewed. Also, discussed the patient's condition with the staff and reviewed records and labs. The patient continued to be extremely paranoid and delusional. The patient also is still easily agitated and easily irritable. The patient also is still suspicious and is still paranoid. Also, his thought processes are circumstantial and tangential with flight of ideas. Also, he still needs redirections, but is still having difficulty with redirections. ASSESSMENT: The patient is still psychotic. TREATMENT PLAN: Continue monitoring his behavior and his condition closely. He also is to continue to work on behavioral modification and adjust psychotropic medications and will continue to follow up. JOB# [id number]
[2016-10-11] MEDS: Multivitamin Tab PO SCH (08:29)
[2016-10-11] MEDS: Ferrous Sulfate 325 MG TAB PO SCH (08:29)
--- NOTE | 2016-10-11 19:55 | Discharge Summary ---
COURSE OF HOSPITAL TREATMENT: The patient was admitted to the emergency room from a halfway due to increased weakness and confusion, and series of laboratory tests done in the emergency room which found that the patient has a urinary tract infection. The patient was admitted to the med/surg floor where the patient received series of antibiotics, and upon stabilization, the patient had an episode of psychosis and agitation for which the patient was eventually transferred to Geropsych Unit. DISCHARGE ASSESSMENT: 1. Urinary tract infection. 2. Hypertension. 3. Anxiety. 4. Schizophrenia. 5. Insomnia. 6. Nicotine dependence. PLAN: The patient will be moved to Geropsych Unit and will be followed closely with a psychiatrist to monitor the patient's behavior. [facility]# [id number]
[2016-10-11] MEDS: OLANZapine 5 mg Oral Disintegrating Tab PO SCH (20:50)
--- NOTE | 2016-10-12 00:05 | Progress Notes ---
SUBJECTIVE: The patient was seen in his room, lying in the bed. The patient appears to be calm and cooperative at this time. According to the nurses, the patient has been episodes of trying to isolate himself, but otherwise the patient has been cooperative especially with his medication adherence. OBJECTIVE: HEENT: Head: Atraumatic and normocephalic. Eyes: Bilateral conjunctivae are clear for injection. NECK: Supple. No JVD. CARDIOVASCULAR: S1 and S2 heard without murmur. PULMONARY: Bilateral sides decreased breath sounds. GASTROINTESTINAL: Soft and nontender without guarding. MUSCULOSKELETAL: No edema and no guarding. ASSESSMENT: 1. Schizophrenia. 2. Anxiety. 3. Insomnia. 4. Hypertension. 5. Nicotine dependence. 6. Anemia. PLAN: We will continue to keep the patient in Geropsych unit and we will follow up with the psychiatrist. JOB# [id number]
[2016-10-12] MEDS: Multivitamin Tab PO SCH (09:29)
[2016-10-12] MEDS: Ferrous Sulfate 325 MG TAB PO SCH (09:29)
--- NOTE | 2016-10-12 14:33 | Progress Notes ---
Covering for Dr. Acosta. The patient was seen and evaluated. The patient's chart was reviewed. Overnight staff reported that at times the patient ____ most of the time happens throughout in the afternoon. Today on [id number] evaluation, the patient observed to be minimizing, guarded. He denies any side effects of the medications. ____, of note, the patient is observed to be also paranoid and delusional, easily irritable, and also today ____ consistent with some thought blocking and suspicious behavior as he engages the medical doctor. MENTAL STATUS EXAMINATION: Still observed to be paranoid, suspicious, and poor insight, judgment, and impulse control. ASSESSMENT AND PLAN: The patient is a 71-year-old male who continues to have residual symptoms of psychosis. We will continue with the primary psychiatrist's treatment plan and goals, which include targeting his psychotic symptoms with Zyprexa 20 mg a day and Ativan as needed. JOB# [id number]
[2016-10-12] MEDS: OLANZapine 5 mg Oral Disintegrating Tab PO SCH (20:28)
--- NOTE | 2016-10-13 03:01 | Progress Notes ---
SUBJECTIVE: The patient was seen, chart reviewed, discussed with staff. The patient is currently in the hospital, psychotic, delusional, easily agitated, easily irritable, suspicious, and paranoid. Thought processes remain circumstantial, flight of ideas, needing a lot of redirection, confused. Does not know where he is, or where he lives, or ___what_ he is going to do for basic needs upon dispo;____ unable to participate in any self-care planning discussions. ASSESSMENT: The patient remains psychotic, disorganized, gravely disabled, needing a lot of redirection, needing prompting for ADLs and eating. PLAN: We will continue to monitor, monitor closely for any side effects. Medications were reviewed. We will monitor for any extrapyramidal side effects, none noted at this time. JOB# [id number] [email or web address]
[2016-10-13] MEDS: Multivitamin Tab PO SCH (08:46)
[2016-10-13] MEDS: Ferrous Sulfate 325 MG TAB PO SCH (08:46)
[2016-10-13] MEDS: OLANZapine 5 mg Oral Disintegrating Tab PO SCH (20:46)
--- NOTE | 2016-10-13 23:22 | Progress Notes ---
SUBJECTIVE: Chart reviewed and the patient interviewed. Also, discussed the patient's condition with the staff and reviewed records and labs. The patient is still disheveled and is still rambling and personal hygiene is still poor. The patient also is still easily agitated and he is still in angry and in irritable mood. Also, thought processes are circumstantial and tangential with flight of ideas. The patient also is argumentative and he is getting into aggressive and agitated episodes when staff tries to help him. Otherwise, the patient is compliant with taking his medications. ASSESSMENT: The patient is still psychotic and aggressive. TREATMENT PLAN: We will continue monitoring his behavior and his condition closely and we will continue to follow up. JOB# [id number]
[2016-10-14] MEDS: Ferrous Sulfate 325 MG TAB PO SCH (08:46)
[2016-10-14] MEDS: Multivitamin Tab PO SCH (08:46)
[2016-10-14] MEDS: OLANZapine 5 mg Oral Disintegrating Tab PO SCH (20:59)
--- NOTE | 2016-10-14 22:05 | Progress Notes ---
SUBJECTIVE: The patient was seen in the dining area watching TV. The patient appears to be calm. The patient stated that he is doing okay. According to staff nurses, the patient has still episodes of aggressive behavior towards the staff, and otherwise, the patient is compliant with his medications. OBJECTIVE: HEENT: Head is atraumatic and normocephalic. Eyes: Bilateral conjunctivae are clear for injection. NECK: Supple. No JVD. CARDIOVASCULAR: S1 and S2 heard without murmur. PULMONARY: Mild inspiratory wheezing noted. GASTROINTESTINAL: Soft and nontender without guarding. MUSCULOSKELETAL: No edema. No clubbing. ASSESSMENT: 1. Schizophrenia. 2. Anxiety. 3. Insomnia. 4. Nicotine dependence. 5. Hypertension. 6. Anemia. PLAN: We will continue to keep the patient in Inpatient Geropsych Unit. We will follow up with the psychiatrist to monitor the patient's behavior. JOB# [id number]
--- NOTE | 2016-10-15 02:51 | Progress Notes ---
SUBJECTIVE: Chart reviewed and the patient interviewed. Also, discussed the patient's condition with the staff and reviewed record and labs. The patient continued to be agitated and in irritable mood. The patient also is still restless and he is still having severe mood swings and severe anxiety. The patient also is interacting minimally with peers and with others. Slightly easier to redirect him, but he still at times gets aggressive. ASSESSMENT: The patient is still psychotic and can be dangerous to others. TREATMENT PLAN: We will continue monitoring his behavior and his condition closely. Also, continue to work on his isolation and ineffective coping and his severe level of depression as well as his severe paranoia. Also, considering adding antidepressant medications to his medications if he does not show more improvement. JOB# [id number]
[2016-10-15] MEDS: Ferrous Sulfate 325 MG TAB PO SCH (10:28)
[2016-10-15] MEDS: Multivitamin Tab PO SCH (10:29)
[2016-10-15] MEDS: OLANZapine 5 mg Oral Disintegrating Tab PO SCH (20:29)
--- NOTE | 2016-10-16 03:36 | Progress Notes ---
SUBJECTIVE: Chart reviewed and the patient interviewed. Also, discussed the patient's condition with the staff and reviewed records and labs. The patient is severely depressed and he is withdrawn. The patient also today is guarded, and his affect is sad and he is unable to carry on any current conversation because of this depression and seems to be preoccupied. The patient also has lack of energy and seems to have lack of motivations. He also wants to be left alone. Otherwise, the patient is less agitated and less irritable, and he is cooperative with the staff. ASSESSMENT: The patient is still depressed. TREATMENT PLAN: Continue monitoring his behavior and his condition. Also, continue to work on his agitation as well as his ineffective coping. Also, we will add Lexapro in a dose of 10 mg every day and we will continue to follow up closely. JOB# [id number]
[2016-10-16] MEDS: Multivitamin Tab PO SCH (09:09)
[2016-10-16] MEDS: Ferrous Sulfate 325 MG TAB PO SCH (09:09)
--- NOTE | 2016-10-16 09:50 | General Progress Note ---
Subjective - Review of Systems Service Date: 11/05/16 Events since last encounter: no distress Subjective: pt still agressive confused Objective - Physical Exam Vitals and I&O: Vital Signs Temp 97.8 F 10/15/16 14:49 Pulse 68 10/16/16 09:10 Resp 18 10/15/16 20:00 BP 112/61 10/16/16 09:10 Pulse Ox 96 10/15/16 14:49 Intake & Output 10/15/16 10/16/16 10/16/16 18:59 06:59 18:59 Intake Total 1500 Balance 1500 Intake: Oral 1500 Other: # Voids 6 # Bowel Movements 1 Stool Characteristics Soft Formed Active Medications: Current Medications Acetaminophen (Tylenol) 650 mg PO Q4HR PRN PRN Reason: Pain OR TEMP 100.3 F Stop: 12/05/16 20:11 Al Hydrox/Mg Hydrox/Simethicone (Maalox) 30 ml PO Q4HR PRN PRN Reason: GI DISTRESS Stop: 12/05/16 20:11 Docusate Sodium (Colace) 100 mg PO DAILY [facility] Stop: 12/06/16 08:59 Last Admin: 10/16/16 09:09 Dose: 100 mg Escitalopram Oxalate (Lexapro) 10 mg PO DAILY [facility] PRN Reason: Protocol Stop: 12/14/16 08:59 Last Admin: 10/16/16 09:08 Dose: 10 mg Ferrous Sulfate (Iron) 325 mg PO DAILY [facility] Stop: 12/06/16 08:59 Last Admin: 10/16/16 09:09 Dose: 325 mg Gabapentin (Neurontin) 600 mg PO BID [facility] Stop: 12/06/16 08:59 Last Admin: 10/16/16 09:09 Dose: 600 mg Lorazepam (Ativan) 0.5 mg PO Q4HR PRN; Protocol PRN Reason: Anxiety Stop: 11/05/16 20:11 Last Admin: 10/09/16 21:20 Dose: 0.5 mg Losartan Potassium (Cozaar) 50 mg PO DAILY [facility] Stop: 12/06/16 08:59 Last Admin: 10/16/16 09:10 Dose: Not Given Multivitamins/Vitamin C (Theragran) 1 tab PO DAILY [facility] Stop: 12/06/16 08:59 Last Admin: 10/16/16 09:09 Dose: 1 tab Olanzapine (Zyprexa Zydis) 20 mg PO HS [facility] PRN Reason: Protocol Stop: 12/05/16 20:59 Last Admin: 10/15/16 20:29 Dose: 20 mg Senna (Senna) 8.6 mg PO HS [facility] Stop: 12/05/16 20:59 Last Admin: 10/15/16 20:29 Dose: 8.6 mg Zolpidem Tartrate (Ambien) 5 mg PO HS PRN PRN Reason: Insomnia Stop: 12/05/16 20:11 Last Admin: 10/09/16 21:20 Dose: 5 mg General: No acute distress HEENT: Atraumatic Neck: Supple Cardiovascular: Regular rate Abdomen: Bowel sounds Assessment/Plan - Problem List Patient Problems: All Active Problems Acute kidney injury (Acute) N17.9 Altered mental status, unspecified (Acute) R41.82 Anxiety (Acute) F41.9 HTN (hypertension) (Acute) I10 Psychosis (Acute) F29 UTI (urinary tract infection) (Acute) high cpk (Acute) - Plan Plan: as per psych as problems arise Nutritional Asmnt/Malnutr-PDOC - Dietary Evaluation Malnutrition Findings (Please click <Entered> for more info): Nutritional Asmnt/Malnutrition Start: 10/10/16 12: 14 Text: Status: Complete Freq: Document 10/10/16 12:15 GSUN (Rec: 10/10/16 12:25 [facility] Nutritional Asmnt/Malnutrition Patient General Information Nutritional Screening Moderate Risk Screening Diagnosis Psychosis Pertinent Medical Hx/Surgical Hx Schizophrenia, anxiety, insomnia, HTN, anemia, nicotine dependence, muscle weakness Subjective Information 71 year old male. Pt asleep in chair in rec room during visit, did not wake up to RD's call. Pt appears thin, no significant fat/muscle wasting . Avg PO intake 75-100% since adm, meeting nutritional needs . Per nursing staff, pt is quiet, no concerns. Current Diet Order/ Nutrition Support Low sodium Pertinent Medications Maalox, Colace, Iron, Theragran, Senna Pertinent Labs No labs. Nutritional Hx/Data Height 1.7 m Height (Calculated Centimeters) 170.2 Current Weight (lbs) 65.771 kg Weight (Calculated Kilograms) 65.8 Weight (Calculated Grams) 25413.9 [place] Body Weight 141lb Weight Status Approriate GI Symptoms Food Allergies No Usual diet at home [place]: regular, NKA Skin Integrity/Comment: Miguelito 16. Skin intact, redness to coccyx. Current %PO Good (75-100%) Estimated Nutritional Goals BEE in Kcals: Using Current wt Calories/Kcals/Kg CBW 145lb/65.9kg Kcals Calculated 1648-1977kcal (25-30kcal/kg) Protein: Using Current wt Protein Calculated 66g (1g/kg) Fluid: ml 1648-1977ml (1ml/kcal) Nutritional Problem 1. Problem Problem No nutritional problem at this time. Intervention/Recommendation Comments 1. Continue with low sodium diet. Avg PO intake is adequate. Expected Outcomes/Goals Expected Outcomes/Goals 1. PO intake continue to meet at least 75% of estimated nutritional needs.
[2016-10-16] MEDS: OLANZapine 5 mg Oral Disintegrating Tab PO SCH (21:05)
--- NOTE | 2016-10-17 03:13 | Progress Notes ---
SUBJECTIVE: Chart reviewed and the patient interviewed. Also, discussed the patient's condition with the staff and reviewed records and labs. The patient continued to be severely depressed and anxious. The patient also is still withdrawn and is still interacting minimally with others. Also seems to be responding and seems to be slightly confused. The patient also still has episodes of irritability and agitation. ASSESSMENT: The patient is still depressed and psychotic. TREATMENT PLAN: I added Lexapro yesterday with no side effects. We will continue same dose. Also, continue to work on his severe level of depression and ineffective coping, and we will continue to follow up. JOB# [id number]
[2016-10-17] MEDS: Multivitamin Tab PO SCH (09:45)
[2016-10-17] MEDS: Ferrous Sulfate 325 MG TAB PO SCH (09:45)
--- NOTE | 2016-10-17 12:02 | General Progress Note ---
Subjective - Review of Systems Events since last encounter: no distress Subjective: pt still agressive confused Objective - Physical Exam Vitals and I&O: Vital Signs Temp 97.2 F 10/17/16 06:48 Pulse 81 10/17/16 09:47 Resp 18 10/17/16 08:00 BP 83/48 10/17/16 09:47 Pulse Ox 18 10/17/16 06:48 Intake & Output 10/16/16 10/17/16 10/17/16 18:59 06:59 18:59 Intake Total 950 Balance 950 Weight (lbs) 59.965 kg Intake: Oral 950 Other: # Voids 3 2 # Bowel Movements 1 Stool Characteristics Soft Formed Active Medications: Current Medications Acetaminophen (Tylenol) 650 mg PO Q4HR PRN PRN Reason: Pain OR TEMP 100.3 F Stop: 12/05/16 20:11 Al Hydrox/Mg Hydrox/Simethicone (Maalox) 30 ml PO Q4HR PRN PRN Reason: GI DISTRESS Stop: 12/05/16 20:11 Docusate Sodium (Colace) 100 mg PO DAILY [facility] Stop: 12/06/16 08:59 Last Admin: 10/17/16 09:45 Dose: 100 mg Escitalopram Oxalate (Lexapro) 10 mg PO DAILY [facility] PRN Reason: Protocol Stop: 12/14/16 08:59 Last Admin: 10/17/16 09:45 Dose: 10 mg Ferrous Sulfate (Iron) 325 mg PO DAILY [facility] Stop: 12/06/16 08:59 Last Admin: 10/17/16 09:45 Dose: 325 mg Gabapentin (Neurontin) 600 mg PO BID [facility] Stop: 12/06/16 08:59 Last Admin: 10/17/16 09:45 Dose: 600 mg Lorazepam (Ativan) 0.5 mg PO Q4HR PRN; Protocol PRN Reason: Anxiety Stop: 11/05/16 20:11 Last Admin: 10/09/16 21:20 Dose: 0.5 mg Losartan Potassium (Cozaar) 50 mg PO DAILY [facility] Stop: 12/06/16 08:59 Last Admin: 10/17/16 09:47 Dose: Not Given Multivitamins/Vitamin C (Theragran) 1 tab PO DAILY [facility] Stop: 12/06/16 08:59 Last Admin: 10/17/16 09:45 Dose: 1 tab Olanzapine (Zyprexa Zydis) 20 mg PO HS [facility] PRN Reason: Protocol Stop: 12/05/16 20:59 Last Admin: 10/16/16 21:05 Dose: 20 mg Senna (Senna) 8.6 mg PO HS [facility] Stop: 12/05/16 20:59 Last Admin: 10/16/16 21:05 Dose: 8.6 mg Zolpidem Tartrate (Ambien) 5 mg PO HS PRN PRN Reason: Insomnia Stop: 12/05/16 20:11 Last Admin: 10/09/16 21:20 Dose: 5 mg General: No acute distress HEENT: Atraumatic Neck: Supple Cardiovascular: Regular rate Abdomen: Bowel sounds Assessment/Plan - Problem List Patient Problems: All Active Problems Acute kidney injury (Acute) N17.9 Altered mental status, unspecified (Acute) R41.82 Anxiety (Acute) F41.9 HTN (hypertension) (Acute) I10 Psychosis (Acute) F29 UTI (urinary tract infection) (Acute) high cpk (Acute) - Plan Plan: as per psych as problems arise Nutritional Asmnt/Malnutr-PDOC - Dietary Evaluation Malnutrition Findings (Please click <Entered> for more info): Nutritional Asmnt/Malnutrition Start: 10/10/16 12: 14 Text: Status: Complete Freq: Document 10/10/16 12:15 GSUN (Rec: 10/10/16 12:25 GSUN [email or web address]) Nutritional Asmnt/Malnutrition Patient General Information Nutritional Screening Moderate Risk Screening Diagnosis Psychosis Pertinent Medical Hx/Surgical Hx Schizophrenia, anxiety, insomnia, HTN, anemia, nicotine dependence, muscle weakness Subjective Information 71 year old male. Pt asleep in chair in rec room during visit, did not wake up to RD's call. Pt appears thin, no significant fat/muscle wasting . Avg PO intake 75-100% since adm, meeting nutritional needs . Per nursing staff, pt is quiet, no concerns. Current Diet Order/ Nutrition Support Low sodium Pertinent Medications Maalox, Colace, Iron, Theragran, Senna Pertinent Labs No labs. Nutritional Hx/Data Height 1.7 m Height (Calculated Centimeters) 170.2 Current Weight (lbs) 65.771 kg Weight (Calculated Kilograms) 65.8 Weight (Calculated Grams) 35905.9 [place] Body Weight 141lb Weight Status Approriate GI Symptoms Food Allergies No Usual diet at home [place]: regular, NKA Skin Integrity/Comment: Miguelito 16. Skin intact, redness to coccyx. Current %PO Good (75-100%) Estimated Nutritional Goals BEE in Kcals: Using Current wt Calories/Kcals/Kg CBW 145lb/65.9kg Kcals Calculated 1648-1977kcal (25-30kcal/kg) Protein: Using Current wt Protein Calculated 66g (1g/kg) Fluid: ml 1648-1977ml (1ml/kcal) Nutritional Problem 1. Problem Problem No nutritional problem at this time. Intervention/Recommendation Comments 1. Continue with low sodium diet. Avg PO intake is adequate. Expected Outcomes/Goals Expected Outcomes/Goals 1. PO intake continue to meet at least 75% of estimated nutritional needs.
[2016-10-17] MEDS: OLANZapine 5 mg Oral Disintegrating Tab PO SCH (20:50)
--- NOTE | 2016-10-17 23:57 | Progress Notes ---
SUBJECTIVE: Chart reviewed and the patient interviewed. Also, discussed the patient's condition with the staff and reviewed records and labs. The patient is still anxious and is still severely depressed. The patient also is still withdrawn. The patient also is interacting minimally with peers and with others. The patient also is ____distracted and he is interacting with low tone and rate ____ and he is also having poor eye contact. On the other hand, the patient continues to comply with taking his medications with no side effects of medications. ASSESSMENT: The patient is still depressed and still seems to be preoccupied. TREATMENT PLAN: We will continue monitoring his behavior and his condition closely. Also, we will increase Lexapro to 15 mg everyday and we will continue to follow up. JOB# [id number]
--- NOTE | 2016-10-18 09:25 | General Progress Note ---
Subjective - Review of Systems Events since last encounter: no distress Subjective: pt still agressive confused Objective - Physical Exam Vitals and I&O: Vital Signs Temp 98.4 F 10/18/16 06:57 Pulse 66 10/18/16 06:57 Resp 17 10/18/16 06:57 BP 151/78 10/18/16 06:57 Pulse Ox 97 10/18/16 06:57 Intake & Output 10/17/16 10/18/16 10/18/16 18:59 06:59 18:59 Intake Total 1200 Balance 1200 Intake: Oral 1200 Other: # Voids 2 # Bowel Movements 1 Stool Characteristics Soft Formed Active Medications: Current Medications Acetaminophen (Tylenol) 650 mg PO Q4HR PRN PRN Reason: Pain OR TEMP 100.3 F Stop: 12/05/16 20:11 Al Hydrox/Mg Hydrox/Simethicone (Maalox) 30 ml PO Q4HR PRN PRN Reason: GI DISTRESS Stop: 12/05/16 20:11 Docusate Sodium (Colace) 100 mg PO DAILY [facility] Stop: 12/06/16 08:59 Last Admin: 10/17/16 09:45 Dose: 100 mg Escitalopram Oxalate (Lexapro) 15 mg PO DAILY [facility] PRN Reason: Protocol Stop: 12/14/16 08:59 Ferrous Sulfate (Iron) 325 mg PO DAILY [facility] Stop: 12/06/16 08:59 Last Admin: 10/17/16 09:45 Dose: 325 mg Gabapentin (Neurontin) 600 mg PO BID [facility] Stop: 12/06/16 08:59 Last Admin: 10/17/16 17:19 Dose: 600 mg Lorazepam (Ativan) 0.5 mg PO Q4HR PRN; Protocol PRN Reason: Anxiety Stop: 11/05/16 20:11 Last Admin: 10/09/16 21:20 Dose: 0.5 mg Losartan Potassium (Cozaar) 50 mg PO DAILY [facility] Stop: 12/06/16 08:59 Last Admin: 10/17/16 09:47 Dose: Not Given Multivitamins/Vitamin C (Theragran) 1 tab PO DAILY [facility] Stop: 12/06/16 08:59 Last Admin: 10/17/16 09:45 Dose: 1 tab Olanzapine (Zyprexa Zydis) 20 mg PO HS [facility] PRN Reason: Protocol Stop: 12/05/16 20:59 Last Admin: 10/17/16 20:50 Dose: 20 mg Senna (Senna) 8.6 mg PO HS [facility] Stop: 12/05/16 20:59 Last Admin: 10/17/16 20:50 Dose: 8.6 mg Zolpidem Tartrate (Ambien) 5 mg PO HS PRN PRN Reason: Insomnia Stop: 12/05/16 20:11 Last Admin: 10/09/16 21:20 Dose: 5 mg General: No acute distress Neck: Supple Cardiovascular: Regular rate Abdomen: Bowel sounds Assessment/Plan - Problem List Patient Problems: All Active Problems Acute kidney injury (Acute) N17.9 Altered mental status, unspecified (Acute) R41.82 Anxiety (Acute) F41.9 HTN (hypertension) (Acute) I10 Psychosis (Acute) F29 UTI (urinary tract infection) (Acute) high cpk (Acute) - Plan Plan: as per psych as problems arise Nutritional Asmnt/Malnutr-PDOC - Dietary Evaluation Malnutrition Findings (Please click <Entered> for more info): Nutritional Asmnt/Malnutrition Start: 10/10/16 12: 14 Text: Status: Complete Freq: Document 10/10/16 12:15 GSUN (Rec: 10/10/16 12:25 GSUN [email or web address]) Nutritional Asmnt/Malnutrition Patient General Information Nutritional Screening Moderate Risk Screening Diagnosis Psychosis Pertinent Medical Hx/Surgical Hx Schizophrenia, anxiety, insomnia, HTN, anemia, nicotine dependence, muscle weakness Subjective Information 71 year old male. Pt asleep in chair in rec room during visit, did not wake up to RD's call. Pt appears thin, no significant fat/muscle wasting . Avg PO intake 75-100% since adm, meeting nutritional needs . Per nursing staff, pt is quiet, no concerns. Current Diet Order/ Nutrition Support Low sodium Pertinent Medications Maalox, Colace, Iron, Theragran, Senna Pertinent Labs No labs. Nutritional Hx/Data Height 1.7 m Height (Calculated Centimeters) 170.2 Current Weight (lbs) 65.771 kg Weight (Calculated Kilograms) 65.8 Weight (Calculated Grams) 16035.9 [place] Body Weight 141lb Weight Status Approriate GI Symptoms Food Allergies No Usual diet at home [place]: regular, NKA Skin Integrity/Comment: [place]. Skin intact, redness to coccyx. Current %PO Good (75-100%) Estimated Nutritional Goals BEE in Kcals: Using Current wt Calories/Kcals/Kg CBW 145lb/65.9kg Kcals Calculated 1648-1976kcal (25-30kcal/kg) Protein: Using Current wt Protein Calculated 66g (1g/kg) Fluid: ml 1648-1977ml (1ml/kcal) Nutritional Problem 1. Problem Problem No nutritional problem at this time. Intervention/Recommendation Comments 1. Continue with low sodium diet. Avg PO intake is adequate. Expected Outcomes/Goals Expected Outcomes/Goals 1. PO intake continue to meet at least 75% of estimated nutritional needs.
[2016-10-18] MEDS: Ferrous Sulfate 325 MG TAB PO SCH (09:59)
[2016-10-18] MEDS: Multivitamin Tab PO SCH (10:00)
--- NOTE | 2016-10-18 20:20 | Progress Notes ---
SUBJECTIVE: The patient is currently in the hospital, transferred from the medical floor due to agitation and psychosis. The patient has been on Zyprexa. On [id number], the patient is still noted to be responding to internal stimuli, still with acute psychosis. Staff is noting he requires a lot of redirection, prompting, still anxious, still noted to be depressed, and still internally preoccupied. ASSESSMENT: The patient remains psychotic, internally preoccupied, not safe for a lower level of care, withdrawn, and depressed. PLAN: Continue to monitor. Monitor his medications. No side effects noted. We will continue to monitor and follow up. JOB# [id number]
[2016-10-18] MEDS: OLANZapine 5 mg Oral Disintegrating Tab PO SCH (20:37)
[2016-10-19] MEDS: Ferrous Sulfate 325 MG TAB PO SCH (08:36)
[2016-10-19] MEDS: Multivitamin Tab PO SCH (08:36)
--- NOTE | 2016-10-19 10:09 | Progress Notes ---
SUBJECTIVE: The patient was seen in the dining room, watching TV. Per patient, he is doing okay. He is eating good. He is sleeping better. Per staff nurses, the patient has been compliant with his medication and less episodes of outburst behavior. OBJECTIVE: HEENT: Head is atraumatic, normocephalic. Eyes: Bilateral conjunctivae are clear from injections. NECK: Supple. No JVD. CARDIOVASCULAR: S1 and S2, without murmur. PULMONARY: Mild inspiratory wheezing noted. GASTROINTESTINAL: Soft, nontender without guarding. MUSCULOSKELETAL: No edema and no clubbing. ASSESSMENT: 1. Schizophrenia. 2. Anxiety. 3. Insomnia. 4. Nicotine dependence. 5. Anemia. 6. Hypertension. PLAN: We will continue to keep the patient inpatient in Geropsych Unit and will follow up with psychiatrist to monitor the patient's chart. [facility]# [id number]
--- NOTE | 2016-10-19 10:49 | General Progress Note ---
Subjective - Review of Systems Subjective: pt still agressive confused Objective - Physical Exam Vitals and I&O: Vital Signs Temp 98 F 10/19/16 06:57 Pulse 75 10/19/16 08:36 Resp 19 10/19/16 06:57 BP 149/74 10/19/16 08:36 Pulse Ox 98 10/19/16 06:57 Intake & Output 10/18/16 10/19/16 10/19/16 18:59 06:59 18:59 Intake Total 950 120 Balance 950 120 Intake: Oral 950 120 Other: # Voids 2 3 # Bowel Movements 1 Stool Characteristics Soft Formed Active Medications: Current Medications Acetaminophen (Tylenol) 650 mg PO Q4HR PRN PRN Reason: Pain OR TEMP 100.3 F Stop: 12/05/16 20:11 Al Hydrox/Mg Hydrox/Simethicone (Maalox) 30 ml PO Q4HR PRN PRN Reason: GI DISTRESS Stop: 12/05/16 20:11 Docusate Sodium (Colace) 100 mg PO DAILY [facility] Stop: 12/06/16 08:59 Last Admin: 10/19/16 08:36 Dose: 100 mg Escitalopram Oxalate (Lexapro) 15 mg PO DAILY [facility] PRN Reason: Protocol Stop: 12/14/16 08:59 Last Admin: 10/19/16 08:36 Dose: 15 mg Ferrous Sulfate (Iron) 325 mg PO DAILY [facility] Stop: 12/06/16 08:59 Last Admin: 10/19/16 08:36 Dose: 325 mg Gabapentin (Neurontin) 600 mg PO BID [facility] Stop: 12/06/16 08:59 Last Admin: 10/19/16 08:36 Dose: 600 mg Lorazepam (Ativan) 0.5 mg PO Q4HR PRN; Protocol PRN Reason: Anxiety Stop: 11/05/16 20:11 Last Admin: 10/09/16 21:20 Dose: 0.5 mg Losartan Potassium (Cozaar) 50 mg PO DAILY [facility] Stop: 12/06/16 08:59 Last Admin: 10/19/16 08:36 Dose: 50 mg Multivitamins/Vitamin C (Theragran) 1 tab PO DAILY [facility] Stop: 12/06/16 08:59 Last Admin: 10/19/16 08:36 Dose: 1 tab Olanzapine (Zyprexa Zydis) 20 mg PO HS [facility] PRN Reason: Protocol Stop: 12/05/16 20:59 Last Admin: 10/18/16 20:37 Dose: 20 mg Senna (Senna) 8.6 mg PO HS [facility] Stop: 12/05/16 20:59 Last Admin: 10/18/16 20:37 Dose: 8.6 mg Zolpidem Tartrate (Ambien) 5 mg PO HS PRN PRN Reason: Insomnia Stop: 12/05/16 20:11 Last Admin: 10/09/16 21:20 Dose: 5 mg Assessment/Plan - Problem List Patient Problems: All Active Problems Acute kidney injury (Acute) N17.9 Altered mental status, unspecified (Acute) R41.82 Anxiety (Acute) F41.9 HTN (hypertension) (Acute) I10 Psychosis (Acute) F29 UTI (urinary tract infection) (Acute) high cpk (Acute) - Plan Plan: as per psych as problems arise Nutritional Asmnt/Malnutr-PDOC - Dietary Evaluation Malnutrition Findings (Please click <Entered> for more info): Nutritional Asmnt/Malnutrition Start: 10/10/16 12: 14 Text: Status: Complete Freq: Document 10/10/16 12:15 GSUN (Rec: 10/10/16 12:25 GSUN [email or web address]) Nutritional Asmnt/Malnutrition Patient General Information Nutritional Screening Moderate Risk Screening Diagnosis Psychosis Pertinent Medical Hx/Surgical Hx Schizophrenia, anxiety, insomnia, HTN, anemia, nicotine dependence, muscle weakness Subjective Information 71 year old male. Pt asleep in chair in rec room during visit, did not wake up to RD's call. Pt appears thin, no significant fat/muscle wasting . Avg PO intake 75-100% since adm, meeting nutritional needs . Per nursing staff, pt is quiet, no concerns. Current Diet Order/ Nutrition Support Low sodium Pertinent Medications Maalox, Colace, Iron, Theragran, Senna Pertinent Labs No labs. Nutritional Hx/Data Height 1.7 m Height (Calculated Centimeters) 170.2 Current Weight (lbs) 65.771 kg Weight (Calculated Kilograms) 65.8 Weight (Calculated Grams) 61878.9 [place] Body Weight 141lb Weight Status Approriate GI Symptoms Food Allergies No Usual diet at home [place]: regular, NKA Skin Integrity/Comment: Miguelito 16. Skin intact, redness to coccyx. Current %PO Good (75-100%) Estimated Nutritional Goals BEE in Kcals: Using Current wt Calories/Kcals/Kg CBW 145lb/65.9kg Kcals Calculated 1648-1976kcal (25-30kcal/kg) Protein: Using Current wt Protein Calculated 66g (1g/kg) Fluid: ml 1648-1977ml (1ml/kcal) Nutritional Problem 1. Problem Problem No nutritional problem at this time. Intervention/Recommendation Comments 1. Continue with low sodium diet. Avg PO intake is adequate. Expected Outcomes/Goals Expected Outcomes/Goals 1. PO intake continue to meet at least 75% of estimated nutritional needs.
[2016-10-19] MEDS: OLANZapine 5 mg Oral Disintegrating Tab PO SCH (20:33)
--- NOTE | 2016-10-19 23:33 | Progress Notes ---
SUBJECTIVE: The patient is seen, chart reviewed, discussed with staff. The patient is currently in the hospital, transferred from the medical floor due to agitation and psychosis, currently on Zyprexa. On [id number], the patient noted to be internally preoccupied, seems to be psychotic, not really responding to my questions much. Stating he feels "okay." Still requiring a lot of redirection, prompting for ADLs, noted to be anxious, withdrawn. ASSESSMENT: The patient remains psychotic, internally preoccupied, withdrawn, isolative. PLAN: Continue to monitor for any medication side effects, there are continued concerns about his safety and his ability, to be cared for at a lower level of care. JOB# [id number]
[2016-10-20] MEDS: Ferrous Sulfate 325 MG TAB PO SCH (08:30)
[2016-10-20] MEDS: Multivitamin Tab PO SCH (08:30)
[2016-10-20] MEDS: OLANZapine 5 mg Oral Disintegrating Tab PO SCH (21:13)
--- NOTE | 2016-10-21 00:34 | Progress Notes ---
DATE: 10/20/[address] Acosta. Case was discussed with staff of the patient, reviewed records. This is a well-known case to me. I am seeing him in consultation on behalf of Dr. Acosta. The patient was transferred from medical floor because of agitation and psychosis, been on Zyprexa. Continues to be internally preoccupied. He answered questions sometimes, inappropriately need prompting to do his ADL. He is sleeping better and eating better. He is compliant with the medication with no side effects. I tried to ask him about where he lives and he believes that he is living in a nursing facility. He is compliant with Lexapro mg a day, Zyprexa 20 mg at bedtime with no side effects, no sedation, no nausea, and no extrapyramidal symptoms. I will continue to work with the patient in group therapy, milieu therapy, and adjust medications as needed. JOB# [id number]
--- NOTE | 2016-10-21 05:01 | Progress Notes ---
DATE: 10/20/2016 SUBJECTIVE: The patient was seen in the dining room watching TV. Per the patient, he is doing okay. He has been eating good, sleeps well, denies any pain or discomfort. Otherwise, in no acute distress. According to staff, the patient has been taking medication on a regular basis, and there are no episodes of any outburst behavior. OBJECTIVE: HEENT: Head is atraumatic and normocephalic. Eyes: Bilateral conjunctivae are clear for injection. NECK: Supple. No JVD. CARDIOVASCULAR: S1 and S2 heard without murmur. PULMONARY: Mild inspiratory wheezing noted. GASTROINTESTINAL: Soft and nontender without guarding. MUSCULOSKELETAL: No edema. No clubbing. ASSESSMENT: 1. Anxiety. 2. Schizophrenia. 3. Insomnia. 4. Nicotine dependence. 5. Hypertension. 6. Anemia. PLAN: We will continue to keep and monitor the patient inpatient Geropsych Unit and we will follow up with the psychiatrist to monitor the patient's behavior. JOB# [id number]
[2016-10-21] MEDS: Multivitamin Tab PO SCH (08:22)
[2016-10-21] MEDS: Ferrous Sulfate 325 MG TAB PO SCH (08:22)
--- NOTE | 2016-10-21 15:55 | General Progress Note ---
Subjective - Review of Systems Subjective: pt still agressive confused Objective - Physical Exam Vitals and I&O: Vital Signs Temp 97.0 F 10/21/16 14:56 Pulse 93 10/21/16 14:56 Resp 20 10/21/16 14:56 BP 125/56 10/21/16 14:56 Pulse Ox 97 10/21/16 14:56 Intake & Output 10/20/16 10/21/16 10/21/16 18:59 06:59 18:59 Intake Total 1000 240 Balance 1000 240 Intake: Oral 1000 240 Other: # Voids 4 1 # Bowel Movements 1 0 Stool Characteristics Soft Formed Active Medications: Current Medications Acetaminophen (Tylenol) 650 mg PO Q4HR PRN PRN Reason: Pain OR TEMP 100.3 F Stop: 12/05/16 20:11 Al Hydrox/Mg Hydrox/Simethicone (Maalox) 30 ml PO Q4HR PRN PRN Reason: GI DISTRESS Stop: 12/05/16 20:11 Docusate Sodium (Colace) 100 mg PO DAILY [facility] Stop: 12/06/16 08:59 Last Admin: 10/21/16 08:22 Dose: 100 mg Escitalopram Oxalate (Lexapro) 15 mg PO DAILY [facility] PRN Reason: Protocol Stop: 12/14/16 08:59 Last Admin: 10/21/16 08:22 Dose: 15 mg Ferrous Sulfate (Iron) 325 mg PO DAILY [facility] Stop: 12/06/16 08:59 Last Admin: 10/21/16 08:22 Dose: 325 mg Gabapentin (Neurontin) 600 mg PO BID [facility] Stop: 12/06/16 08:59 Last Admin: 10/21/16 08:22 Dose: 600 mg Losartan Potassium (Cozaar) 50 mg PO DAILY [facility] Stop: 12/06/16 08:59 Last Admin: 10/21/16 08:22 Dose: Not Given Multivitamins/Vitamin C (Theragran) 1 tab PO DAILY [facility] Stop: 12/06/16 08:59 Last Admin: 10/21/16 08:22 Dose: 1 tab Olanzapine (Zyprexa Zydis) 20 mg PO HS [facility] PRN Reason: Protocol Stop: 12/05/16 20:59 Last Admin: 10/20/16 21:13 Dose: 20 mg Senna (Senna) 8.6 mg PO HS [facility] Stop: 12/05/16 20:59 Last Admin: 10/20/16 21:15 Dose: 8.6 mg Assessment/Plan - Problem List Patient Problems: All Active Problems Acute kidney injury (Acute) N17.9 Altered mental status, unspecified (Acute) R41.82 Anxiety (Acute) F41.9 HTN (hypertension) (Acute) I10 Psychosis (Acute) F29 UTI (urinary tract infection) (Acute) high cpk (Acute) - Plan Plan: as per psych as problems arise Nutritional Asmnt/Malnutr-PDOC - Dietary Evaluation Malnutrition Findings (Please click <Entered> for more info): Nutritional Asmnt/Malnutrition Start: 10/10/16 12: 14 Text: Status: Complete Freq: Document 10/10/16 12:15 GSUN (Rec: 10/10/16 12:25 GSUN [id number]) Nutritional Asmnt/Malnutrition Patient General Information Nutritional Screening Moderate Risk Screening Diagnosis Psychosis Pertinent Medical Hx/Surgical Hx Schizophrenia, anxiety, insomnia, HTN, anemia, nicotine dependence, muscle weakness Subjective Information 71 year old male. Pt asleep in chair in rec room during visit, did not wake up to RD's call. Pt appears thin, no significant fat/muscle wasting . Avg PO intake 75-100% since adm, meeting nutritional needs . Per nursing staff, pt is quiet, no concerns. Current Diet Order/ Nutrition Support Low sodium Pertinent Medications Maalox, Colace, Iron, Theragran, Senna Pertinent Labs No labs. Nutritional Hx/Data Height 1.7 m Height (Calculated Centimeters) 170.2 Current Weight (lbs) 65.771 kg Weight (Calculated Kilograms) 65.8 Weight (Calculated Grams) 46292.9 [place] Body Weight 141lb Weight Status Approriate GI Symptoms Food Allergies No Usual diet at home [place]: regular, NKA Skin Integrity/Comment: Miguelito 16. Skin intact, redness to coccyx. Current %PO Good (75-100%) Estimated Nutritional Goals BEE in Kcals: Using Current wt Calories/Kcals/Kg CBW 145lb/65.9kg Kcals Calculated 1648-1977kcal (25-30kcal/kg) Protein: Using Current wt Protein Calculated 66g (1g/kg) Fluid: ml 1648-1977ml (1ml/kcal) Nutritional Problem 1. Problem Problem No nutritional problem at this time. Intervention/Recommendation Comments 1. Continue with low sodium diet. Avg PO intake is adequate. Expected Outcomes/Goals Expected Outcomes/Goals 1. PO intake continue to meet at least 75% of estimated nutritional needs.
[2016-10-21] MEDS: OLANZapine 5 mg Oral Disintegrating Tab PO SCH (20:45)
--- NOTE | 2016-10-22 03:18 | Progress Notes ---
DATE: 10/21/2016 Case was discussed with staff of the patient, reviewed records. The patient according to staff seems to be showing progress. He does have a placement waiting confirmation. He is sleeping better and eating better. No side effects with the medication, no sedation, no nausea, and no extrapyramidal symptoms. He is on Zyprexa and we will be sending the patient to the placement as soon as I approve it. We continue to work with the patient in group therapy, milieu therapy, and adjust medications as needed. JOB# [id number]
[2016-10-22] MEDS: Multivitamin Tab PO SCH (08:22)
[2016-10-22] MEDS: Ferrous Sulfate 325 MG TAB PO SCH (08:23)
--- NOTE | 2016-10-22 11:14 | General Progress Note ---
Subjective - Review of Systems Events since last encounter: Pt. in no acute distress Subjective: pt still agressive confused Objective - Physical Exam Vitals and I&O: Vital Signs Temp 97.3 F 10/22/16 06:13 Pulse 80 10/22/16 08:23 Resp 18 10/22/16 06:13 BP 124/68 10/22/16 08:23 Pulse Ox 96 10/22/16 06:13 Intake & Output 10/21/16 10/22/16 10/22/16 18:59 06:59 18:59 Intake Total 1000 240 Balance 1000 240 Intake: Oral 1000 240 Other: # Voids 4 4 # Bowel Movements 2 0 Active Medications: Current Medications Acetaminophen (Tylenol) 650 mg PO Q4HR PRN PRN Reason: Pain OR TEMP 100.3 F Stop: 12/05/16 20:11 Al Hydrox/Mg Hydrox/Simethicone (Maalox) 30 ml PO Q4HR PRN PRN Reason: GI DISTRESS Stop: 12/05/16 20:11 Docusate Sodium (Colace) 100 mg PO DAILY [facility] Stop: 12/06/16 08:59 Last Admin: 10/22/16 08:22 Dose: 100 mg Escitalopram Oxalate (Lexapro) 15 mg PO DAILY [facility] PRN Reason: Protocol Stop: 12/14/16 08:59 Last Admin: 10/22/16 08:22 Dose: 15 mg Ferrous Sulfate (Iron) 325 mg PO DAILY [facility] Stop: 12/06/16 08:59 Last Admin: 10/22/16 08:23 Dose: 325 mg Gabapentin (Neurontin) 600 mg PO BID [facility] Stop: 12/06/16 08:59 Last Admin: 10/22/16 08:23 Dose: 600 mg Losartan Potassium (Cozaar) 50 mg PO DAILY [facility] Stop: 12/06/16 08:59 Last Admin: 10/22/16 08:23 Dose: 50 mg Multivitamins/Vitamin C (Theragran) 1 tab PO DAILY [facility] Stop: 12/06/16 08:59 Last Admin: 10/22/16 08:22 Dose: 1 tab Olanzapine (Zyprexa Zydis) 20 mg PO HS [facility] PRN Reason: Protocol Stop: 12/05/16 20:59 Last Admin: 10/21/16 20:45 Dose: 20 mg Senna (Senna) 8.6 mg PO HS [facility] Stop: 12/05/16 20:59 Last Admin: 10/21/16 20:44 Dose: 8.6 mg General: Alert, Oriented x3 Neck: Supple Cardiovascular: Regular rate, Normal S1, Normal S2 Lungs: Clear to auscultation Abdomen: Bowel sounds Neurological: Normal gait Assessment/Plan - Problem List Patient Problems: All Active Problems Acute kidney injury (Acute) N17.9 Altered mental status, unspecified (Acute) R41.82 Anxiety (Acute) F41.9 HTN (hypertension) (Acute) I10 Psychosis (Acute) F29 UTI (urinary tract infection) (Acute) high cpk (Acute) - Plan Plan: as per psych as problems arise Nutritional Asmnt/Malnutr-PDOC - Dietary Evaluation Malnutrition Findings (Please click <Entered> for more info): Nutritional Asmnt/Malnutrition Start: 10/10/16 12: 14 Text: Status: Complete Freq: Document 10/10/16 12:15 GSUN (Rec: 10/10/16 12:25 GSUN [place] [id number]) Nutritional Asmnt/Malnutrition Patient General Information Nutritional Screening Moderate Risk Screening Diagnosis Psychosis Pertinent Medical Hx/Surgical Hx Schizophrenia, anxiety, insomnia, HTN, anemia, nicotine dependence, muscle weakness Subjective Information 71 year old male. Pt asleep in chair in rec room during visit, did not wake up to RD's call. Pt appears thin, no significant fat/muscle wasting . Avg PO intake 75-100% since adm, meeting nutritional needs . Per nursing staff, pt is quiet, no concerns. Current Diet Order/ Nutrition Support Low sodium Pertinent Medications Maalox, Colace, Iron, Theragran, Senna Pertinent Labs No labs. Nutritional Hx/Data Height 1.7 m Height (Calculated Centimeters) 170.2 Current Weight (lbs) 65.771 kg Weight (Calculated Kilograms) 65.8 Weight (Calculated Grams) 14064.9 [place] Body Weight 141lb Weight Status Approriate GI Symptoms Food Allergies No Usual diet at home [place]: regular, NKA Skin Integrity/Comment: Miguelito 16. Skin intact, redness to coccyx. Current %PO Good (75-100%) Estimated Nutritional Goals BEE in Kcals: Using Current wt Calories/Kcals/Kg CBW 145lb/65.9kg Kcals Calculated 1648-1977kcal (25-30kcal/kg) Protein: Using Current wt Protein Calculated 66g (1g/kg) Fluid: ml 1648-1976ml (1ml/kcal) Nutritional Problem 1. Problem Problem No nutritional problem at this time. Intervention/Recommendation Comments 1. Continue with low sodium diet. Avg PO intake is adequate. Expected Outcomes/Goals Expected Outcomes/Goals 1. PO intake continue to meet at least 75% of estimated nutritional needs.
--- NOTE | 2016-10-22 20:44 | Discharge Summary ---
DATE OF DISCHARGE: 10/22/2016 IDENTIFYING INFORMATION: The patient is a 71-year-old male. HISTORY OF PRESENT ILLNESS: The patient was transferred from the medical floor. He was seen there by Dr. Acosta in consult because of agitation and psychosis. The patient was already admitted to the hospital because of infection. The patient also has a history of schizophrenia and has been treated for that. The patient, when I talked to him upon admission, he was unable to tell me his age, he is not , but he has children. He has said he has his own place which I found to be incorrect information ____ to snf. The patient was a poor historian. The patient was diagnosed with chronic paranoid schizophrenia. COURSE IN THE HOSPITAL: The patient was continued with medication that he was on, which is Zyprexa and that dose was increased to 20 mg at bedtime. The patient also was on escitalopram that was increased to 15 mg a day. He was also on iron, Neurontin 600 mg twice a day, multivitamin, and losartan. The patient progressively got better. He was not acting in anyway dangerous. He was basically confused. He was sleeping well, eating well, no acting out behavior. So as he improved and he has a safe place to go, we felt he could be discharged to a lesser level of care. FINAL DIAGNOSIS: AXIS I: Chronic paranoid schizophrenia with acute exacerbation. MEDICAL DIAGNOSIS: Deferred to the medical doctor. The patient will be going to a snf, will follow up with the psychiatrist and primary care physician. EXPECTED OUTCOME: Stable if the patient complies with the above. JOB# [id number]
== END 2016-10-22 14:55 | DRG 885 ==
LOC: GERO 15:19
PROVIDERS: ADMIT Psychiatry & Neurology Psychiatry; ATTEND Psychiatry & Neurology Psychiatry
DX: F20.0 Paranoid schizophrenia (principal); N17.9 Acute kidney failure, unspecified; J44.9 Chronic obstructive pulmonary disease, unspecified; F29 Unspecified psychosis not due to a substance or known physiological condition; N39.0 Urinary tract infection, site not specified; F41.9 Anxiety disorder, unspecified; G47.00 Insomnia, unspecified; I10 Essential (primary) hypertension; D64.9 Anemia, unspecified; F17.210 Nicotine dependence, cigarettes, uncomplicated; M62.81 Muscle weakness (generalized); R45.1 Restlessness and agitation; F32.9 Major depressive disorder, single episode, unspecified
CPT/HCPCS: 90899; G0410; Z7610